=== PATIENT | female | born 1945 | race Caucasian/White ===

== ENCOUNTER 2021-12-16 10:50 | Inpatient (IN) | payer MEDICARE, OTHER, MEDICAID, SELFPAY ==
[2021-12-16] VITALS (12 sets, daily range): BP systolic 140–165; BP diastolic 72–108; PULSE 70–76; RESP 16–19; TEMP 36.4–36.5; O2SAT 92–100; BMI 45.2
--- NOTE | ~2021-12-16 | CT_ITS ---
EXAMINATION: CT abdomen pelvis wo con DATE: 12/16/2021 15:14 INDICATION: Left lower quadrant abdominal pain and burning while urinating, starting last evening TECHNIQUE: Computed tomography (CT) of the abdomen and pelvis was performed without intravenous contr ast. Automated exposure control and iterative reconstruction technique were employed. Exam dose: 152 1.35 mGy-cm total exam DLP. COMPARISON: None. FINDINGS: There is mild patchy infiltrate and/or atelectasis in both lower lobes predominantly. Coronary and aortic calcifications. No pericardial or pleural effusion. There are calcified splenic granulomas. No hepatic, splenic, pancreatic, and adrenal or left renal sp travis-occupying mass lesion. There is an approximately 7.2 cm right renal cyst. No bile duct or pancreatic duct dilatation. No urinary tract calculus or hydroureteronephrosis. The urinary bladder is unremarkable. Status post hysterectomy. There is atherosclerotic calcification of prominent degree at the origins of the celiac and superior mesenteric and right renal arteries. No abdominal aortic aneurysm. No intraperitoneal or retroperiton eal or pelvic mass lesion or adenopathy or ascites. There are numerous diverticula of the left, with minimal involvement of the right colon; no CT eviden ce of diverticulitis. No bowel obstruction, bowel wall thickening, pneumatosis or intraperitoneal narciso e air. Degenerative changes of the thoracic and lumbar spine. No suspicious osteolytic or osteoblastic lesio ns are noted. IMPRESSION: Mild patchy infiltrate and/or atelectasis at both lower lobes predominantly Coronary and aortic atherosclerosis Prominent calcifications at the origins of celiac consider mesenteric and right renal arteries Diverticulosis of the colon; no evidence of diverticulitis Reviewed, dictated and finalized at [facility]. Reviewed, dictated and finalized at location [facility]. IMPRESSION: Mild patchy infiltrate and/or atelectasis at both lower lobes pred ominantly Coronary and aortic atherosclerosis Prominent calcifications at the origins of celiac consider mesenteric and right renal arteries Diverticulosis of the colon; no evidence of diverticulitis
--- NOTE | ~2021-12-16 | US_ITS ---
EXAMINATION: US abdomen limited DATE: 12/17/2021 08:40 INDICATION: Abnormal liver function tests. TECHNIQUE: Multiple grayscale and Doppler ultrasound images of the abdomen were obtained. COMPARISON: CT abdomen and pelvis 12/16/2021 FINDINGS: Sensitivity is decreased by obesity. The visualized portions of the head, body, and tail of the pancreas are normal. The liver is normal without focal lesion. There is normal flow in main port al vein. The gallbladder is absent. The common duct is normal and measures 5 mm. IMPRESSION: 1. Normal right upper quadrant ultrasound status post cholecystectomy. Reviewed, dictated and finalized at location [facility].
--- NOTE | ~2021-12-16 | XR_ITS ---
XR chest 1V portable DATE: 12/16/2021 16:52 INDICATION: Cough TECHNIQUE: Portable AP chest on 12/16/2021 at 1641 hours COMPARISON: 01/30/2016 PA and lateral chest FINDINGS: Borderline or increased heart size. Coronary artery calcification and/or coronary stent. Th ere is mild pulmonary vascular congestion and redistribution, mild prominence of the minor fissure, s uggesting mild congestive heart failure. No pleural effusion or pneumothorax or pulmonary consolidati on is noted. Aortic arch calcification. IMPRESSION: Mild congestive change Reviewed, dictated and finalized at location [facility]. IMPRESSION: Mild congestive change
[2021-12-16 11:31] LABS: Basophils Absolute Auto 0.1 K/mm3 (0.0-0.1); Basophils Percent Auto 0.9 % (0.2-1.2); Eosinophils Absolute Auto 0.2 K/mm3 (0-0.3); Hematocrit 41.3 % (37.0-47.0); Hemoglobin 12.9 g/dL (12.0-15.0); Immature Granulocyte Absolute 0.03 K/mm3 (0.00-0.031); Immature Granulocyte Percent A 0.4 % (0-0.5); Lymphocytes Absolute Auto 1.81 K/mm3 (0.9-3.2); Lymphocytes Percent Auto 25.7 % (18.3-44.2); Mean Corpuscular HGB Conc 31.2 g/dl (32-36); Mean Corpuscular Volume 89.8 fl (80-100); Mean Platelet Volume 11.2 fl (7.4-10.4); Monocytes Absolute Auto 0.8 K/mm3 (0.1-0.6); Monocytes Percent Auto 11.2 % (2.6-8.5); Neutrophils Absolute Auto 4.1 K/mm3 (1.3-6.7); Neutrophils Percent Auto 58.8 % (45.5-73.1); Platelet Count Result 215 k/mm3 (150-375); Red Cell Distribution Width 15.5 % (11.5-14.5)
[2021-12-16 11:41] LABS: Alanine Aminotransferase 47 U/L (6-35); Albumin Level 3.4 g/dL (3.5-5.1); Alkaline Phosphatase 118 U/L (38-126); Anion Gap 7 mmol/L (8-16); Aspartate Amino Transferase 126 U/L (14-36); Bilirubin,Total 0.8 mg/dL (0.2-1.3); Blood Urea Nitrogen 49 mg/dL (7-17); Calcium 9.1 mg/dL (8.4-10.2); Carbon Dioxide 30 mmol/L (22-30); Chloride 98 mmol/L (98-107); Estimated CRCL calculation 29 ml/min; Estimated Glomerular Filt Rate 26; Glucose 207 mg/dL (65-110); Lipase 259 U/L (23-300); Potassium 4.6 mmol/L (3.4-5.0); Sodium 135 mmol/L (137-145)
--- NOTE | 2021-12-16 14:44 | ED.ABDPAIN ---
HPI - Abdominal Pain General Chief Complaint: Abdominal Pain Stated Complaint: abd pain Time Seen by Provider: 12/16/21 14:32 Source: RN notes reviewed History of Present Illness HPI narrative: Patient presents emergency department from [facility] via EMS for abdominal pain. Patient states symptoms began yesterday. States has been having abdominal pain in the lower abdomen described as aching in nature states it does not radiate has been associated with dysuria. Patient denies any fevers or chills chest pain shortness of breath nausea vomiting diarrhea or any other symptoms. States she is not taking pain medication for the symptoms today states she does have a history of diverticulitis as well as UTIs before in the past Related Data Allergies Allergy/AdvReac Type Severity Reaction Status Date / Time adhesive tape Allergy Unknown Verified 01/30/16 17:45 amoxicillin Allergy Unknown Verified 12/27/14 19:10 ciprofloxacin Allergy Unknown Verified 01/30/16 17:45 clavulanic acid Allergy Unknown Verified 01/30/16 17:45 hydromorphone Allergy Unknown Verified 01/30/16 17:45 morphine Allergy Unknown Verified 01/30/16 17:45 Review of Systems Review of Systems: Gen.: Denies fevers or chills ENT: Denies congestion Respiratory: Denies shortness of breath or cough CV: Denies chest pain or palpitations GI: See HPI reports dysuria Musculoskeletal: Denies back pain or muscle pain Neuro: Denies numbness, tingling, weakness or focal weakness Skin: Denies rash Except as documented, all other systems reviewed and negative PMFSH Past Medical History Medical History (Updated 12/16/21 @ 17:10 by Marco King DO) Diverticulitis Social History Social History (Updated 12/16/21 @ 14:45 by Marco King DO) Smoking status: Never smoker Exam Narrative: APPEARANCE: No acute distress, nontoxic, resting in bed HEENT: Normocephalic, atraumatic, OMM RESPIRATORY: No respiratory distress, clear to auscultation bilaterally with no rhonchi wheezing or rales CARDIOVASCULAR: RRR s murmur ABDOMINAL: Soft nondistended tender palpation right lower quadrant left lower quadrant no tenderness right upper quadrant left upper quadrant no rebound or guarding MUSCULOSKELETAl: Moves all extremities. No clubbing, cyanosis or edema. NEURO: Awake and alert. Following commands, speech normal, no focal deficits SKIN:: Warm, dry. Normal Color PSYCHIATRIC: Normal affect/mood Course Course Emergency Course: Discussed with JOSHUA Montaño for Dr Wang presentation work-up agrees with admission request patient started on Rocephin and Zithromax at this time Discussed with patient and family results of workup and diagnosis. Discussed need for admission. Patient and family understand and agree to current treatment plan Vital Signs Vital signs: Vital Signs Temperature 97.7 F 12/16/21 11:34 Pulse Rate 72 12/16/21 11:34 Respiratory Rate 18 12/16/21 11:34 Blood Pressure 150/82 H 12/16/21 11:34 Pulse Oximetry 98 12/16/21 11:34 Oxygen Delivery Room Air 12/16/21 11:34 Temperature 97.7 F 12/16/21 14:02 Pulse Rate 76 12/16/21 16:37 Respiratory Rate 18 12/16/21 16:37 Blood Pressure 165/84 H 12/16/21 16:37 Pulse Oximetry 99 12/16/21 16:37 Oxygen Delivery Room Air 12/16/21 11:34 MDM - Abdominal Pain Lab Data Result diagrams: 12/16/21 11:26 12/16/21 11:26 Labs: Lab Results 12/16/21 12/16/21 12/16/21 Range/Units 11:26 11:26 15:28 WBC 7.0 (4.5-10.0) K/mm3 RBC 4.60 (4.2-5.4) M/mm3 Hgb 12.9 (12.0-15.0) g/dL Hct 41.3 (37.0-47.0) % MCV 89.8 (80-100) fl MCH 28.0 (26-34) pg MCHC 31.2 L (32-36) g/dl RDW 15.5 H (11.5-14.5) % Plt Count 215 (150-375) k/mm3 MPV 11.2 H (7.4-10.4) fl Immature Gran % (Auto) 0.4 (0-0.5) % Neut % (Auto) 58.8 (45.5-73.1) % Lymph % (Auto) 25.7 (18.3-44.2) % [place] % (Auto) 11.2 H (2.6-8.5) % Eos %
--- NOTE | 2021-12-16 15:02 | PC.NURSE ---
pt. to XR
[2021-12-16 15:39] LABS: Appearance Urine Cloudy (Clear); Bilirubin Urine Negative (Negative); Blood Urine 2+ (Negative); Color Urine Yellow (Yellow); Glucose Urine UA Negative (Negative); Ketones Urine Trace mg/dL (Negative); Leukocyte Esterase Ur 2+ LEU/UL (Negative); Nitrate Urine Negative (Negative); Protein Urine 3+ mg/dL (Negative)
[2021-12-16] MEDS: SODIUM CHLORIDE 0.9% IV 1,000 ML 999 ML IV CONT (15:43)
[2021-12-16 15:48] LABS: Bacteria Urine 1+ /hpf; WBC Clumps Urine Present /HPF; WBC Urine >75 /hpf
[2021-12-16 15:51] LABS: Add Urine Microscopic? YES
[2021-12-16 17:16] LABS: SARS-CoV-2 RNA PCR Negative
--- NOTE | 2021-12-16 18:09 | ADMGEN ---
This patient, Marleen Perla, was admitted to Medical Room 251-. Patient/family oriented to hospital policies and general routines including ID bracelet, bed and alarms, visiting hours, pain management, procedures, bathroom and other care routines, personal items, smoking policy, room service/diet, and visiting hours. Information on how to activate the Rapid Response Team has been discussed. Patient/Family are encouraged to report perceived risks to care and to ask questions if they do not understand what they are told or what they should do.
[2021-12-16 18:31] LABS: Glucose Point of Care 191 mg/dl (65-105)
--- NOTE | 2021-12-16 19:15 | PM.IMHP ---
H&P: HPI History of Present Illness Date/Time: 12/16/21 19:15 Chief Complaint: Dysuria and lower abdominal pain. Narrative: This is a 76-year-old female with history of stroke, coronary artery disease, congestive heart failure, hypertension, hyperlipidemia, chronic obstructive pulmonary disease, chronic kidney disease, and anxiety who presented to the emergency department via EMS from a local group home for evaluation of dysuria and lower abdominal pain. She describes an aching discomfort in the lower abdomen, more so on the left, associated with dysuria. These symptoms have been present for a couple of days and she wanted to come in to be evaluated for possible urinary tract infection or diverticulitis, she does have a history of both. she has not had fever, chills, sweats, nausea, or vomiting. she also denies diarrhea and in fact she is typically constipated. CT of the abdomen and pelvis showed no acute intra abdominal or pelvic findings to correlate with her symptoms but did note mild patchy infiltrate and/or atelectasis at both lower lobes. She denies however cough, shortness of breath, cold and flu symptoms, etc.. Her urinalysis does look infected and she is being admitted in this setting for IV antibiotics as she did not feel as though she could be discharged. Review of Systems Review of Systems: Twelve systems were reviewed. She is essentially wheelchair-bound but can not stand and pivot to transfer. No cold or flu symptoms. She denies sick contacts. She has not had chest pain, pleuritic pain, or shortness of breath. No melena or hematochezia. She denies hematuria. No abdominal pain with eating. Except as documented, all other systems were reviewed and are negative. [facility] Past Medical History Medical History (Updated 12/17/21 @ 01:44 by Sabra Felton PA-C) Cerebrovascular accident Chronic anticoagulation Chronic kidney disease Chronic obstructive pulmonary disease Coronary artery disease Diverticulitis Hyperlipidemia Hypertension Hypothyroidism Paroxysmal atrial fibrillation Type 2 diabetes mellitus Urinary tract infection Surgical History Surgical History (Updated 12/16/21 @ 19:03 by Sabra Felton PA-C) History of ankle surgery ORIF left ankle fracture. History of appendectomy History of cholecystectomy History of colonoscopy with polypectomy History of coronary artery stent placement History of thyroidectomy Family History Family History Other Unknown family medical history Social History Social History (Updated 12/17/21 @ 01:35 by Sabra Felton PA-C) Social History: Surrogate medical decision maker: Michael Perla, son. Code status: Full code. Smoking status: Never smoker Alcohol intake: never Substance use: never Substance use type: does not use Additional living arrangements comments: Resident of [facility]. Spiritual care concerns: No Meds Home Medications and Allergies Home Medications Medication Instructions Recorded Confirmed Type pregabalin 150 mg capsule (Lyrica) 150 mg PO BID #60 caps 07/12/21 12/16/21 Rx zolpidem 5 mg tablet (Ambien) 5 mg PO QHS PRN insomnia #90 tabs 07/12/21 12/16/21 Rx Adult One Daily Multivitamin 1 tablet PO DAILY 12/16/21 12/16/21 History Saccharomyces boulardii 250 mg 250 mg PO BID 12/16/21 12/16/21 History oral powder packet acetaminophen 500 mg tablet 1,000 mg PO Q6H PRN Pain (Scale 12/16/21 12/16/21 History Score 1-3) albuterol sulfate 90 mcg/actuation 2 puff inhalation QID PRN 12/16/21 12/16/21 History aerosol inhaler Shortness Of Breath Or Wheezing amiodarone 200 mg tablet 200 mg PO DAILY 12/16/21 12/16/21 History aspirin 81 mg tablet,delayed 81 mg PO DAILY 12/16/21 12/16/21 History release cetirizine 10 mg tablet 10 mg PO DAILY 12/16/21 12/16/21 History fenofibrate 160 mg tablet 145 mg PO DAILY 12/16/21 12/16/21 History folic acid 1
[2021-12-16] MEDS: SODIUM CHLORIDE 0.9% IV 1,000 ML 100 ML IV CONT (20:07)
[2021-12-16 21:19] LABS: Glucose Point of Care 247 mg/dl (65-105)
[2021-12-16] MEDS: PHENAZOPYRIDINE HCL 100 MG TABLET 200 MG PO (21:36)
[2021-12-17] MEDS: LORazepam (*CRX) 0.5 MG TABLET PO ×2 (00:19→21:39)
[2021-12-17] MEDS: ACETAMINOPHEN 325 MG TABLET 650 MG PO ×3 (00:19→12:12)
[2021-12-17] MEDS: RIVAROXABAN 15 MG TABLET PO ×2 (00:19→17:47)
[2021-12-17] MEDS: INSULIN GLARGINE (*BKC) 100 UNITS/ML 20 UNITS SUB-Q ×3 (00:23→21:18)
[2021-12-17] MEDS: LEVOTHYROXINE SODIUM 75 MCG TABLET PO (05:40)
[2021-12-17] MEDS: LEVOTHYROXINE SODIUM 100 MCG TABLET PO (05:40)
[2021-12-17] MEDS: LIOTHYRONINE SODIUM 5 MCG TABLET PO (05:41)
[2021-12-17] MEDS: PHENAZOPYRIDINE HCL 100 MG TABLET 200 MG PO ×3 (05:41→17:46)
[2021-12-17 05:44] LABS: Basophils Percent Auto 0.7 % (0.2-1.2); Eosinophils Absolute Auto 0.3 K/mm3 (0-0.3); Eosinophils Percent Auto 4.7 % (0-4.4); Hematocrit 37.3 % (37.0-47.0); Hemoglobin 11.5 g/dL (12.0-15.0); Immature Granulocyte Absolute 0.02 K/mm3 (0.00-0.031); Immature Granulocyte Percent A 0.4 % (0-0.5); Lymphocytes Absolute Auto 1.26 K/mm3 (0.9-3.2); Lymphocytes Percent Auto 22.5 % (18.3-44.2); Mean Corpuscular HGB Conc 30.8 g/dl (32-36); Mean Corpuscular Hemoglobin 27.8 pg (26-34); Mean Corpuscular Volume 90.1 fl (80-100); Mean Platelet Volume 12.1 fl (7.4-10.4); Monocytes Absolute Auto 0.7 K/mm3 (0.1-0.6); Monocytes Percent Auto 12.3 % (2.6-8.5); Neutrophils Absolute Auto 3.3 K/mm3 (1.3-6.7); Neutrophils Percent Auto 59.4 % (45.5-73.1); Platelet Count Result 195 k/mm3 (150-375); Red Blood Count 4.14 M/mm3 (4.2-5.4); Red Cell Distribution Width 15.6 % (11.5-14.5); White Blood Count 5.6 K/mm3 (4.5-10.0)
[2021-12-17 06:00] VITALS: BP 145/64; PULSE 68; RESP 16; TEMP 36.5; O2SAT 100
[2021-12-17 06:03] LABS: Alanine Aminotransferase 38 U/L (6-35); Alkaline Phosphatase 89 U/L (38-126); Anion Gap 9 mmol/L (8-16); Aspartate Amino Transferase 101 U/L (14-36); Bilirubin,Total 0.6 mg/dL (0.2-1.3); Blood Urea Nitrogen 43 mg/dL (7-17); Calcium 8.6 mg/dL (8.4-10.2); Carbon Dioxide 27 mmol/L (22-30); Chloride 99 mmol/L (98-107); Estimated CRCL calculation 34 ml/min; Estimated Glomerular Filt Rate 32; Glucose 212 mg/dL (65-110); Magnesium 2.2 mg/dL (1.6-2.3); Potassium 3.8 mmol/L (3.4-5.0); Sodium 135 mmol/L (137-145)
[2021-12-17 06:13] LABS: Hemoglobin A1C 9.1 % (<5.7)
[2021-12-17 07:09] LABS: Hepatitis B Surface Antigen Negative (Negative)
[2021-12-17 07:15] LABS: HAV RESULT Negative (Negative); Hepatitis B Core IgM Result Negative (Negative)
[2021-12-17 07:27] LABS: Hepatitis C Virus Antibody Negative (Negative)
[2021-12-17 08:50] LABS: Glucose Point of Care 229 mg/dl (65-105)
[2021-12-17] MEDS: polyethylene glycoL 3350 17 GM POWD.PACK PO (08:59)
[2021-12-17] MEDS: POTASSIUM CHLORIDE 20 MEQ PACKET (FOR LIQUID) PO (09:00)
[2021-12-17] MEDS: SACCHAROMYCES BOULARDII 250 MG CAPSULE PO ×2 (09:00→17:47)
[2021-12-17] MEDS: ASPIRIN 81 MG ENTERIC TABLET PO (09:00)
[2021-12-17] MEDS: ROSUVASTATIN 10 MG TABLET 40 MG PO (09:03)
[2021-12-17] MEDS: PANTOPRAZOLE 40 MG TABLET PO (09:03)
[2021-12-17] MEDS: LORATADINE 10 MG TABLET PO (09:03)
[2021-12-17] MEDS: THERAPEUTIC MULTIVITAMINS/MINERALS TAB (*BKC) 1 TABLET PO (09:03)
[2021-12-17] MEDS: FOLIC ACID 1 MG TABLET PO (09:03)
[2021-12-17] MEDS: SPIRONOLACTONE 25 MG TABLET PO (09:03)
[2021-12-17] MEDS: FUROSEMIDE 80 MG TABLET PO (09:03)
[2021-12-17] MEDS: INSULIN ASPART (*BKC) 100 UNITS/ML 14 UNITS SUB-Q ×2 (09:04→12:34)
[2021-12-17] MEDS: INSULIN ASPART (*BKC) 100 UNITS/ML SUB-Q ×2 (09:05→12:34)
[2021-12-17 09:06] VITALS: PULSE 64
[2021-12-17] MEDS: AMIODARONE HCL 200 MG TABLET PO (09:06)
[2021-12-17] MEDS: FENOFIBRATE NANOCRYSTALLIZED 145 MG TABLET PO (09:07)
--- NOTE | 2021-12-17 09:45 | PM.IMPN ---
Progress Note: A&P Assessment and Plan (1) Urinary tract infection: Code(s): N39.0 - Urinary tract infection, site not specified Status: Acute Assessment and Plan: Patient presents with dysuria and lower abdominal pain, found to have evidence of UTI on UA. WBC normal and remains normal. No fevers. She was started on ceftriaxone. UCx pending. (2) Elevated LFTs: Code(s): R79.89 - Other specified abnormal findings of blood chemistry Status: Acute Assessment and Plan: Abdominal exam remains benign. Abdominal pain better. Now with rectal pain. No acute findings on CT of the abdomen and pelvis. RUQ US normal. LFTs mildly elevated but better today. Hepatitis panel negative. Follow. Add Tucks pads and Anusol. (3) Chronic kidney disease: Code(s): N18.9 - Chronic kidney disease, unspecified Status: Acute Assessment and Plan: She has known chronic kidney disease and has seen a kidney specialist in the past. She does not know the stage of her kidney disease or her baseline numbers. Cr 1.9 on admission but better today at 1.6. Off IV fluids. (4) Type 2 diabetes mellitus: Code(s): E11.9 - Type 2 diabetes mellitus without complications Status: Acute Assessment and Plan: A1c 9.1. The patient's blood glucose was reviewed on 12/17 Glucose remains poorly controlled. Continue AccuCheks covering with sliding scale. Hypoglycemia protocol available as needed. Continue current medications and monitor for now; this may improve with her adhering to diabetic diet. Continue diabetic diet. If glucose persistently elevated next 24 hours, then will advance medications. (5) Paroxysmal atrial fibrillation: Code(s): I48.0 - Paroxysmal atrial fibrillation Status: Acute Assessment and Plan: She is in a sinus rhythm. Continue rivaroxaban for stroke prophylaxis. (6) Abnormal chest sounds: Code(s): R09.89 - Other specified symptoms and signs involving the circulatory and respiratory systems Status: Acute Assessment and Plan: She had fine crackles at the bases. CXR showing mild congestive changes. CT A/P showing mild patchy infiltrates and/or atelectasis in bilateral lower lobes; suspect atelectasis. She is able to lie flat. IV fluids stopped. Diuretics resumed. Plan DVT prophylaxis: Xarelto Code status: Full Diet: Diabetic Subjective Date/time seen: 12/17/21 09:45 Interval history: 76yo female with pAFib, DM and CKD here for abdominal pain. Patient states she is having severe dysuria and rectal burning after BMs. Slept poorly. No CP or SOB. She has a rash under her breasts and in her groin that is being treated. She states it is very puritic Exam Narrative: AF 97.7 145/64 64 16 100% Gen - NARD lying flat in bed Chest - CTA bilaterally, nml RR CV - RRR S1/S2 Abd - Soft, NT/ND, Positive BS Ext - trace pitting pedal edema Psych - anxious Skin - Warm and dry. no significnat erythema under her breasts or intertriginous area. Objective Data Vital Signs Vital Signs: Vital Signs - 24 hr 12/16/21 11:34 12/16/21 14:02 12/16/21 14:39 Temperature 97.7 F 97.7 F Pulse Rate 72 73 Respiratory Rate 18 19 Blood Pressure 150/82 H 146/72 H Pulse Oximetry 98 100 100 Oxygen Delivery Room Air 12/16/21 14:42 12/16/21 14:45 12/16/21 14:46 Temperature Pulse Rate Respiratory Rate Blood Pressure 158/88 H 140/108 H Pulse Oximetry 97 96 97 Oxygen Delivery 12/16/21 15:14 12/16/21 15:15 12/16/21 15:30 Temperature Pulse Rate Respiratory Rate Blood Pressure Pulse Oximetry 98 99 97 Oxygen Delivery 12/16/21 15:46 12/16/21 16:37 12/16/21 21:21 Temperature 97.5 F L Pulse Rate 76 70 Respiratory Rate 18 16 Blood Pressure 165/84 H 150/73 H Pulse Oximetry 92 99 95 Oxygen Delivery 12/17/21 06:00 12/17/21 09:06 Temperature 97.7 F Pulse Rate 68 64 Respira
[2021-12-17] MEDS: PREGABALIN (*CRX) 75 MG CAPSULE 150 MG PO ×2 (10:26→21:39)
[2021-12-17 12:22] LABS: Glucose Point of Care 238 mg/dl (65-105)
[2021-12-17 14:18] VITALS: BP 150/75; PULSE 63; RESP 16; TEMP 36.1; O2SAT 99
[2021-12-17 17:22] LABS: Glucose Point of Care 138 mg/dl (65-105)
[2021-12-17] MEDS: INSULIN ASPART (*BKC) 100 UNITS/ML 7 UNITS SUB-Q (18:01)
[2021-12-17 21:18] LABS: Glucose Point of Care 218 mg/dl (65-105)
[2021-12-17 22:00] VITALS: BP 146/87; PULSE 76; RESP 18; TEMP 36.7; O2SAT 96
[2021-12-18] MEDS: ACETAMINOPHEN 325 MG TABLET 650 MG PO ×2 (02:45→08:41)
[2021-12-18 05:47] LABS: Alanine Aminotransferase 35 U/L (6-35); Alkaline Phosphatase 95 U/L (38-126); Anion Gap 9 mmol/L (8-16); Aspartate Amino Transferase 74 U/L (14-36); Bilirubin,Total 0.6 mg/dL (0.2-1.3); Blood Urea Nitrogen 40 mg/dL (7-17); Calcium 8.8 mg/dL (8.4-10.2); Carbon Dioxide 30 mmol/L (22-30); Chloride 97 mmol/L (98-107); Estimated CRCL calculation 33 ml/min; Estimated Glomerular Filt Rate 29; Glucose 181 mg/dL (65-110); Potassium 4.1 mmol/L (3.4-5.0); Sodium 136 mmol/L (137-145)
[2021-12-18] MEDS: LINACLOTIDE 145 MCG CAPSULE PO (07:25)
[2021-12-18] MEDS: LEVOTHYROXINE SODIUM 75 MCG TABLET PO (07:25)
[2021-12-18] MEDS: LIOTHYRONINE SODIUM 5 MCG TABLET PO (07:25)
[2021-12-18] MEDS: LEVOTHYROXINE SODIUM 100 MCG TABLET PO (07:26)
[2021-12-18 07:52] VITALS: BP 141/67; PULSE 71; RESP 20; TEMP 36.1; O2SAT 98
[2021-12-18 08:48] VITALS: PULSE 67
[2021-12-18 08:48] LABS: Glucose Point of Care 191 mg/dl (65-105)
[2021-12-18] MEDS: ROSUVASTATIN 10 MG TABLET 40 MG PO (08:48)
[2021-12-18] MEDS: AMIODARONE HCL 200 MG TABLET PO (08:48)
[2021-12-18] MEDS: POTASSIUM CHLORIDE 20 MEQ PACKET (FOR LIQUID) PO (08:48)
[2021-12-18] MEDS: LORATADINE 10 MG TABLET PO (08:49)
[2021-12-18] MEDS: PHENAZOPYRIDINE HCL 100 MG TABLET 200 MG PO ×3 (08:49→17:31)
[2021-12-18] MEDS: SPIRONOLACTONE 25 MG TABLET PO (08:49)
[2021-12-18] MEDS: ASPIRIN 81 MG ENTERIC TABLET PO (08:50)
[2021-12-18] MEDS: INSULIN GLARGINE (*BKC) 100 UNITS/ML 20 UNITS SUB-Q ×2 (08:50→20:44)
[2021-12-18] MEDS: FOLIC ACID 1 MG TABLET PO (08:50)
[2021-12-18] MEDS: FENOFIBRATE NANOCRYSTALLIZED 145 MG TABLET PO (08:50)
[2021-12-18] MEDS: THERAPEUTIC MULTIVITAMINS/MINERALS TAB (*BKC) 1 TABLET PO (08:50)
[2021-12-18] MEDS: INSULIN ASPART (*BKC) 100 UNITS/ML 14 UNITS SUB-Q ×3 (08:50→17:30)
[2021-12-18] MEDS: PANTOPRAZOLE 40 MG TABLET PO (08:50)
[2021-12-18] MEDS: SACCHAROMYCES BOULARDII 250 MG CAPSULE PO ×2 (08:50→17:31)
[2021-12-18] MEDS: FUROSEMIDE 80 MG TABLET PO (08:50)
[2021-12-18] MEDS: PREGABALIN (*CRX) 75 MG CAPSULE 150 MG PO ×2 (08:53→20:44)
--- NOTE | 2021-12-18 11:09 | PCPTNOTE ---
Attempted PT evaluation this date. Pt declined stating that she has been getting up a lot this morning to the commode due to multiple bowel movements. Will attempt again at a later date/time.
[2021-12-18 11:58] LABS: Toxigenic C. Diff NEGATIVE (NEGATIVE)
[2021-12-18 11:59] LABS: Glucose Point of Care 258 mg/dl (65-105)
[2021-12-18] MEDS: INSULIN ASPART (*BKC) 100 UNITS/ML SUB-Q (12:16)
--- NOTE | 2021-12-18 12:34 | PM.IMPN ---
Progress Note: A&P Assessment and Plan (1) Urinary tract infection: Code(s): N39.0 - Urinary tract infection, site not specified Status: Acute Assessment and Plan: Oral Omnicef (2) Elevated LFTs: Code(s): R79.89 - Other specified abnormal findings of blood chemistry Status: Acute Assessment and Plan: LFTs elevated, chronic. No right upper quadrant pain. Workup revealing (3) Chronic kidney disease: Code(s): N18.9 - Chronic kidney disease, unspecified Status: Acute Assessment and Plan: Monitor (4) Type 2 diabetes mellitus: Code(s): E11.9 - Type 2 diabetes mellitus without complications Status: Acute Assessment and Plan: Monitor blood sugars (5) Paroxysmal atrial fibrillation: Code(s): I48.0 - Paroxysmal atrial fibrillation Status: Acute (6) Abnormal chest sounds: Code(s): R09.89 - Other specified symptoms and signs involving the circulatory and respiratory systems Status: Acute Assessment and Plan: Possible pneumonia. Continue azithromycin Subjective Date/time seen: 12/18/21 12:34 Complaining of some lower abdominal cramping. Tylenol not helping Exam Narrative: General: alert and oriented Psych: appropriate mood nad affect Eyes: PERRLA Neck: Trachea midline, no new lesions Skin: no changes Lungs: CTA Cardiac: Normal S1,S2, no MGR ABD: soft, nd, nt, nbs Ext: no new lesions, no cce Vasc: Pulses intact Objective Data Vital Signs Vital Signs: Vital Signs - 24 hr 12/17/21 14:18 12/17/21 20:00 12/17/21 22:00 Temperature 97 F L 98.1 F Pulse Rate 63 76 Respiratory Rate 16 18 Blood Pressure 150/75 H 146/87 H Pulse Oximetry 99 96 Oxygen Delivery Room Air 12/18/21 07:52 12/18/21 08:48 12/18/21 08:00 Temperature 97 F L Pulse Rate 71 67 Respiratory Rate 20 Blood Pressure 141/67 H Pulse Oximetry 98 Oxygen Delivery Room Air Intake/Output Intake/Output: Intake & Output 12/15/21 12/16/21 12/17/21 12/18/21 23:59 23:59 23:59 23:59 Intake Total 1400 1500 540 Output Total 200 3750 700 Balance 1200 -2250 -160 Meds/Results Medications: Active Medications Generic Name Dose Route Start Last Admin Trade Name Freq PRN Reason Stop Dose Admin Acetaminophen 650 mg 12/16/21 23:46 12/18/21 08:41 Acetaminophen 325 Mg Tablet PO 650 mg Q6H PRN Administration Pain (Scale Score 1-3) Albuterol 2 puff 12/16/21 23:46 Albuterol Sulfate (*Sp) Aerosol 1 Puff INHALATION QID PRN Shortness Of Breath Or Wheezing Amiodarone HCl 200 mg 12/17/21 08:00 12/18/21 08:48 Amiodarone Hcl 200 Mg Tablet PO 200 mg DAILY@0800 SIVA Administration Aspirin 81 mg 12/17/21 09:00 12/18/21 08:50 Aspirin 81 Mg Enteric Tablet PO 81 mg DAILY SIVA Administration Azithromycin 500 mg 12/18/21 21:00 Azithromycin 250 Mg Tablet PO 12/20/21 21:01 DAILY@2100 [facility] Cefdinir 300 mg 12/18/21 21:00 Cefdinir 300 Mg Capsule PO 12/23/21 09:01 Q12HR [facility] Dextrose 12.5 gm 12/16/21 23:48 Dextrose 50% 25 Gm/50 Ml Syringe IV PUSH PRN PRN Hypoglycemia Protocol Fenofibrate 145 mg 12/17/21 09:00 12/18/21 08:50 Fenofibrate Nanocrystallized 145 Mg Tablet PO 145 mg QAM SIVA Administration Folic Acid 1 mg 12/17/21 09:00 12/18/21 08:50 Folic Acid 1 Mg Tablet PO 1 mg DAILY SIVA Administration Furosemide 80 mg 12/17/21 09:00 12/18/21 08:50 Furosemide 80 Mg Tablet PO 80 mg DAILY SIVA Administration Glucagon 1 mg 12/16/21 23:48 Glucagon For Inj 1 Mg Vial IM PRN PRN Hypoglycemia Protocol Glucose 15 gm 12/16/21 23:48 Glucose Oral Gel 15 Gm Of Glucse In 37.5 Gm Tube PO PRN PRN Hypoglycemia Protocol Hydrocortisone Acetate 25 mg 12/17/21 09:45 12/18/21 08:50 Hydrocortisone Acetate 25 Mg Suppository RECTAL Not Given Q12HR [facility] Dextrose 1,000 mls @ 10
[2021-12-18 14:00] VITALS: BP 139/68; PULSE 81; RESP 16; TEMP 36.1; O2SAT 99
[2021-12-18] MEDS: HYDROcodone/acetaminophen (*CRX) 5-325 MG TABLET 1 TAB PO ×2 (15:52→21:57)
[2021-12-18 17:02] LABS: Glucose Point of Care 199 mg/dl (65-105)
[2021-12-18] MEDS: CEFDINIR 300 MG CAPSULE PO (20:43)
[2021-12-18] MEDS: RIVAROXABAN 15 MG TABLET PO (20:43)
[2021-12-18] MEDS: AZITHROMYCIN 250 MG TABLET 500 MG PO (20:43)
[2021-12-18 21:23] VITALS: BP 149/52; PULSE 71; RESP 18; TEMP 36.7; O2SAT 97
[2021-12-18] MEDS: LORazepam (*CRX) 0.5 MG TABLET PO (21:57)
[2021-12-18 21:59] LABS: Glucose Point of Care 185 mg/dl (65-105)
[2021-12-19] MEDS: HYDROcodone/acetaminophen (*CRX) 5-325 MG TABLET 1 TAB PO ×2 (03:00→08:55)
[2021-12-19 05:29] VITALS: BP 115/43; PULSE 68; RESP 18; TEMP 36.9; O2SAT 95
[2021-12-19] MEDS: LIOTHYRONINE SODIUM 5 MCG TABLET PO (05:42)
[2021-12-19] MEDS: LEVOTHYROXINE SODIUM 75 MCG TABLET PO (05:42)
[2021-12-19] MEDS: LINACLOTIDE 145 MCG CAPSULE PO (05:42)
[2021-12-19] MEDS: LEVOTHYROXINE SODIUM 100 MCG TABLET PO (05:42)
[2021-12-19] MEDS: THERAPEUTIC MULTIVITAMINS/MINERALS TAB (*BKC) 1 TABLET PO (08:47)
[2021-12-19] MEDS: PANTOPRAZOLE 40 MG TABLET PO (08:47)
[2021-12-19] MEDS: ROSUVASTATIN 10 MG TABLET 40 MG PO (08:47)
[2021-12-19] MEDS: FOLIC ACID 1 MG TABLET PO (08:47)
[2021-12-19] MEDS: ASPIRIN 81 MG ENTERIC TABLET PO (08:47)
[2021-12-19] MEDS: PREGABALIN (*CRX) 75 MG CAPSULE 150 MG PO (08:47)
[2021-12-19] MEDS: FENOFIBRATE NANOCRYSTALLIZED 145 MG TABLET PO (08:48)
[2021-12-19] MEDS: CEFDINIR 300 MG CAPSULE PO (08:48)
[2021-12-19] MEDS: SACCHAROMYCES BOULARDII 250 MG CAPSULE PO (08:48)
[2021-12-19] MEDS: FUROSEMIDE 80 MG TABLET PO (08:48)
[2021-12-19] MEDS: LORATADINE 10 MG TABLET PO (08:48)
[2021-12-19] MEDS: POTASSIUM CHLORIDE 20 MEQ PACKET (FOR LIQUID) PO (08:48)
[2021-12-19] MEDS: SPIRONOLACTONE 25 MG TABLET PO (08:48)
[2021-12-19 08:49] VITALS: PULSE 62
[2021-12-19] MEDS: AMIODARONE HCL 200 MG TABLET PO (08:49)
[2021-12-19 09:01] LABS: Anion Gap 9 mmol/L (8-16); Blood Urea Nitrogen 49 mg/dL (7-17); Calcium 9.1 mg/dL (8.4-10.2); Carbon Dioxide 27 mmol/L (22-30); Chloride 100 mmol/L (98-107); Estimated CRCL calculation 28 ml/min; Estimated Glomerular Filt Rate 24; Glucose 173 mg/dL (65-110); Potassium 4.4 mmol/L (3.4-5.0); Sodium 136 mmol/L (137-145)
[2021-12-19 09:19] LABS: Glucose Point of Care 166 mg/dl (65-105)
[2021-12-19] MEDS: INSULIN ASPART (*BKC) 100 UNITS/ML 14 UNITS SUB-Q ×2 (09:38→12:34)
[2021-12-19] MEDS: INSULIN GLARGINE (*BKC) 100 UNITS/ML 20 UNITS SUB-Q (09:38)
--- NOTE | 2021-12-19 11:10 | PM.DS ---
DS: Admitting Diagnosis Discharge Date December 19, 2021 Admitting Diagnosis UTI abdominal pain DS: Discharge Diagnosis Discharge Diagnosis (1) Urinary tract infection: Code(s): N39.0 - Urinary tract infection, site not specified Status: Acute Assessment and Plan: Oral Omnicef (2) Elevated LFTs: Code(s): R79.89 - Other specified abnormal findings of blood chemistry Status: Acute Assessment and Plan: LFTs elevated, chronic. No right upper quadrant pain. Workup unrevealing (3) Chronic kidney disease: Code(s): N18.9 - Chronic kidney disease, unspecified Status: Acute Assessment and Plan: Monitor (4) Type 2 diabetes mellitus: Code(s): E11.9 - Type 2 diabetes mellitus without complications Status: Acute Assessment and Plan: Monitor blood sugars (5) Paroxysmal atrial fibrillation: Code(s): I48.0 - Paroxysmal atrial fibrillation Status: Acute (6) Abnormal chest sounds: Code(s): R09.89 - Other specified symptoms and signs involving the circulatory and respiratory systems Status: Acute Assessment and Plan: Possible pneumonia. Continue azithromycin DS: Summary Hospital Course Hospital Course: patient was admitted for lower abdominal pain found have urinary tract infection. Possibility of pneumonia as well so she was put on Rocephin and azithromycin. No chest pain no shortness of breath. Patient has lower abdominal pain did improve but she still having some lower abdominal cramping but it is improving every day. Patient did have some benefit Moca so a few Moca tabs will be given her on discharge. Otherwise she can be discharged back to facility to continue oral antibiotics. Time Spent with Patient Time attestation: Total time spent providing and/or coordinating discharge services: Exam Narrative: General: alert and oriented Psych: appropriate mood nad affect Eyes: PERRLA Neck: Trachea midline, no new lesions Skin: no changes Lungs: CTA Cardiac: Normal S1,S2, no MGR ABD: soft, nd, nt, nbs Ext: no new lesions, no cce Vasc: Pulses intact DS: Data Data Completed and Pending Labs on day of discharge: Labs from last 24 hours 12/19/21 12/19/21 12/18/21 09:10 08:33 21:54 Sodium 136 L Potassium 4.4 Chloride 100 Carbon Dioxide 27 Anion Gap 9 BUN 49 H Creatinine 2.00 H Estim Creat Clear Calc 28 Estimated GFR 24 L Glucose 173 H POC Capillary Glucose 166 H 185 H Calcium 9.1 C. difficile (PCR) 12/18/21 12/18/21 12/18/21 16:44 11:49 11:05 Sodium Potassium Chloride Carbon Dioxide Anion Gap BUN Creatinine Estim Creat Clear Calc Estimated GFR Glucose POC Capillary Glucose 199 H 258 H Calcium C. difficile (PCR) Negative Discharge Plan Discharge Attending physician on discharge: Abilio Lopez Discharging Clinician: Abilio Lopez Patient Disposition: Home, Self-Care Activity: no preference Diet: as tolerated Patient Instructions: Antibiotic Form, Rivaroxaban (By mouth) Stand Alone Forms: General Discharge Information Follow-up/Referrals: Marco Rose MD [Primary Care Provider] - Discharge Medications: New azithromycin [Zithromax] 250 mg Tablet 500 mg PO DAILY@2100 3 Days Qty: 3 0RF hydrocodone-acetaminophen 5-325 mg Tablet 1 tablet PO Q6H PRN (Reason: Pain Rated 7-10) 5 Days Qty: 20 0RF cefdinir 300 mg Capsule 300 mg PO Q12HR 5 Days Qty: 10 0RF Continued Adult One Daily Multivitamin 1 tablet PO DAILY levothyroxine 175 mcg Tablet 175 mcg PO DAILY insulin glargine [Lantus U-100 Insulin] 100 unit/mL Solution 20 unit SUBCUT BID spironolactone 25 mg Tablet 25 mg PO DAILY potassium chloride 20 mEq Packet 20 meq PO DAILY lorazepam 0.5 mg Tablet 0.5 mg PO Q8H PRN (Reason: Anxiety) furosemide 80 mg
[2021-12-19 12:23] LABS: Glucose Point of Care 267 mg/dl (65-105)
[2021-12-19] MEDS: INSULIN ASPART (*BKC) 100 UNITS/ML SUB-Q (12:34)
[2021-12-19 14:43] LABS: EDCOVIDSCREEN Negative (Negative)
== END 2021-12-19 15:33 | DRG 689 ==
LOC: ANHED 17:10 → ANH2MED 17:29
PROVIDERS: Emergency Medicine; Physician Assistant; Admitting Provider Internal Medicine; Emergency Provider Emergency Medicine; PCP Family Medicine; Visit Provider Chiropractor
DX: N39.0 Urinary tract infection, site not specified (principal); J18.9 Pneumonia, unspecified organism; I13.0 Hypertensive heart and chronic kidney disease with heart failure and stage 1 through stage 4 chronic kidney disease, or unspecified chronic kidney disease; J44.0 Chronic obstructive pulmonary disease with (acute) lower respiratory infection; R79.89 Other specified abnormal findings of blood chemistry; E11.22 Type 2 diabetes mellitus with diabetic chronic kidney disease; N18.9 Chronic kidney disease, unspecified; I50.9 Heart failure, unspecified; I48.0 Paroxysmal atrial fibrillation; I25.10 Atherosclerotic heart disease of native coronary artery without angina pectoris; E78.5 Hyperlipidemia, unspecified; E89.0 Postprocedural hypothyroidism; F41.9 Anxiety disorder, unspecified; Z20.822 Contact with and (suspected) exposure to COVID-19; Z79.01 Long term (current) use of anticoagulants; Z79.4 Long term (current) use of insulin; Z79.82 Long term (current) use of aspirin; Z86.73 Personal history of transient ischemic attack (TIA), and cerebral infarction without residual deficits; Z95.5 Presence of coronary angioplasty implant and graft; Z99.3 Dependence on wheelchair
CPT/HCPCS: 36415; 51701; 71045; 74176; 76705; 80048; 80053; 80074; 81001; 82948; 83036; 83690; 83735; 84443; 85025; 87077; 87086; 87186; 87426; 87493; 96361; 96365; 96366; 96375; 97161; 97165; 99285; A9270; C9803; G0378; J0131; J0456; J0696; J1815; J7030; U0003; U0005

== ENCOUNTER 2022-02-10 09:08 | Emergency (ER) | payer MEDICARE, OTHER, MEDICAID, SELFPAY ==
[2022-02-10 09:07] VITALS: BP 153/77; PULSE 79; RESP 18; TEMP 36.6; O2SAT 99
--- NOTE | 2022-02-10 09:17 | ED.EPISTAXIS ---
HPI - Epistaxis General Chief complaint: Epistaxis <Sharri Benito PA-C - Last Filed: 02/10/22 12:10> Stated complaint: bloody nose since 0600 <Sharri Benito PA-C - Last Filed: 02/10/22 12:10> Time Seen by Provider: 02/10/22 09:10 <Sharri Benito PA-C - Last Filed: 02/10/22 12:10> History of Present Illness HPI Narrative: Patient is a 76-year-old female with a history of A. fib on Xarelto here via EMS for evaluation of recurrent epistaxis. Patient states over the past 2 weeks, she has had daily episodes of epistaxis lasting about 30 minutes to an hour. These have resolved without intervention, however patient developed nosebleed today that has lasted 3 hours. Patient states that she seen ENT in [facility] in the past for frequent epistaxis and has had cauterization in the past. She has been compliant with her Xarelto. Denies any trauma to the face or nose, obvious etiology of nosebleeds. They have been attempting humidifiers in the room without significant relief. <Sharri Benito PA-C - Last Filed: 02/10/22 12:10> Related Data Home medications: Home Medications Medication Instructions Recorded Confirmed Adult One Daily Multivitamin 1 tablet PO DAILY 12/16/21 12/16/21 Saccharomyces boulardii 250 mg 250 mg PO BID 12/16/21 12/16/21 oral powder packet acetaminophen 500 mg tablet 1,000 mg PO Q6H PRN Pain (Scale 12/16/21 12/16/21 Score 1-3) albuterol sulfate 90 mcg/actuation 2 puff inhalation QID PRN 12/16/21 12/16/21 aerosol inhaler Shortness Of Breath Or Wheezing amiodarone 200 mg tablet 200 mg PO DAILY 12/16/21 12/16/21 aspirin 81 mg tablet,delayed 81 mg PO DAILY 12/16/21 12/16/21 release cetirizine 10 mg tablet 10 mg PO DAILY 12/16/21 12/16/21 fenofibrate 160 mg tablet 145 mg PO DAILY 12/16/21 12/16/21 folic acid 1 mg tablet 1 mg PO DAILY 12/16/21 12/16/21 furosemide 80 mg tablet 80 mg PO DAILY 12/16/21 12/16/21 insulin glargine 100 unit/mL 20 unit subcut BID 12/16/21 12/16/21 subcutaneous solution (Lantus U-100 Insulin) insulin lispro 100 unit/mL 14 unit subcut TIDWM 12/16/21 12/16/21 subcutaneous cartridge (Humalog U-100 Insulin) levothyroxine 175 mcg tablet 175 mcg PO DAILY 12/16/21 12/16/21 linaclotide 145 mcg capsule 145 mcg PO QAM 12/16/21 12/16/21 (Linzess) liothyronine 5 mcg tablet (Cytomel) 5 mcg PO DAILY 12/16/21 12/16/21 lorazepam 0.5 mg tablet 0.5 mg PO Q8H PRN Anxiety 12/16/21 12/16/21 pantoprazole 40 mg tablet,delayed 40 mg PO DAILY 12/16/21 12/16/21 release (Protonix) polyethylene glycol 3350 17 gram 17 g PO DAILY 12/16/21 12/16/21 oral powder packet (Miralax) potassium chloride 20 mEq oral 20 meq PO DAILY 12/16/21 12/16/21 packet rivaroxaban 15 mg tablet (Xarelto) 15 mg PO HS 12/16/21 12/16/21 rosuvastatin 40 mg tablet 40 mg PO DAILY 12/16/21 12/16/21 spironolactone 25 mg tablet 25 mg PO DAILY 12/16/21 12/16/21 <Sharri Benito PA-C - Last Filed: 02/10/22 12:10> Allergies/adverse reactions: Allergies Allergy/AdvReac Type Severity Reaction Status Date / Time adhesive tape Allergy Unknown Unknown Verified 12/16/21 19:32 amoxicillin Allergy Unknown Unknown Verified 12/16/21 19:32 ciprofloxacin Allergy Unknown Unknown Verified 12/16/21 19:32 clavulanic acid Allergy Unknown Unknown Verified 12/16/21 19:32 hydromorphone Allergy Unknown Unknown Verified 12/16/21 19:32 morphine Allergy Unknown Unknown Verified 12/16/21 19:32 <Sharri Benito PA-C - Last Filed: 11/14/22 12:10> Review of Systems Review of Systems: Gen.: Denies fevers or chills Eyes: Denies eye pain or visual change ENT: Reports nosebleeds. Denies congestion Respiratory: Denies shortness of breath or cough CV: Denies chest pain or palpitations GI: Denies abdominal pain nausea, emesis or diarrhea denies burning, urgency, frequency or hematuria Musculoskeletal: Denies back pain or muscle pain Neuro: Denies numbness, tingling, weak
[2022-02-10 09:41] LABS: Basophils Absolute Auto 0.1 K/mm3 (0.0-0.1); Basophils Percent Auto 0.7 % (0.2-1.2); Eosinophils Absolute Auto 0.2 K/mm3 (0-0.3); Eosinophils Percent Auto 3.6 % (0-4.4); Hematocrit 37.7 % (37.0-47.0); Hemoglobin 11.9 g/dL (12.0-15.0); Immature Granulocyte Absolute 0.05 K/mm3 (0.00-0.031); Immature Granulocyte Percent A 0.7 % (0-0.5); Lymphocytes Absolute Auto 1.25 K/mm3 (0.9-3.2); Lymphocytes Percent Auto 18.6 % (18.3-44.2); Mean Corpuscular HGB Conc 31.6 g/dl (32-36); Mean Corpuscular Hemoglobin 28.6 pg (26-34); Mean Corpuscular Volume 90.6 fl (80-100); Mean Platelet Volume 11.2 fl (7.4-10.4); Monocytes Absolute Auto 0.7 K/mm3 (0.1-0.6); Monocytes Percent Auto 10.3 % (2.6-8.5); Neutrophils Absolute Auto 4.4 K/mm3 (1.3-6.7); Neutrophils Percent Auto 66.1 % (45.5-73.1); Platelet Count Result 202 k/mm3 (150-375); Red Blood Count 4.16 M/mm3 (4.2-5.4); Red Cell Distribution Width 15.8 % (11.5-14.5); White Blood Count 6.7 K/mm3 (4.5-10.0)
[2022-02-10] MEDS: OXYMETAZOLINE HCL 0.05% NAS 15 ML BTL (*BKC) 1 SPRAY NASAL (09:49)
[2022-02-10 09:54] LABS: Prothrombin Time 21.8 Seconds (11.1-14.7)
[2022-02-10 09:55] LABS: Partial Thromboplastin Time 41.8 SECONDS (22.3-36.8)
[2022-02-10] MEDS: HYDROcodone/acetaminophen (*CRX) 5-325 MG TABLET 1 TAB PO (11:32)
[2022-02-10 12:29] VITALS: BP 130/60; PULSE 81; RESP 18; O2SAT 96
== END 2022-02-10 12:50 ==
PROVIDERS: Physician Assistant; Emergency Provider Emergency Medicine; PCP Family Medicine
DX: R04.0 Epistaxis (principal); I48.0 Paroxysmal atrial fibrillation; I12.9 Hypertensive chronic kidney disease with stage 1 through stage 4 chronic kidney disease, or unspecified chronic kidney disease; E11.22 Type 2 diabetes mellitus with diabetic chronic kidney disease; N18.9 Chronic kidney disease, unspecified; I25.10 Atherosclerotic heart disease of native coronary artery without angina pectoris; J44.9 Chronic obstructive pulmonary disease, unspecified; E78.5 Hyperlipidemia, unspecified; E89.0 Postprocedural hypothyroidism; Z95.5 Presence of coronary angioplasty implant and graft; Z86.73 Personal history of transient ischemic attack (TIA), and cerebral infarction without residual deficits; Z87.440 Personal history of urinary (tract) infections; Z79.4 Long term (current) use of insulin; Z79.01 Long term (current) use of anticoagulants; Z79.82 Long term (current) use of aspirin
CPT/HCPCS: 30901; 36415; 85025; 85610; 85730; 99283; A9270

== ENCOUNTER 2022-09-24 21:00 | Emergency (ER) | payer MEDICARE, OTHER, MEDICAID, SELFPAY ==
--- NOTE | ~2022-09-24 | CT_ITS ---
EXAMINATION: CT brain wo con DATE: 09/24/2022 21:33 INDICATION: seizure . TECHNIQUE: Computed tomography (CT) of the head was performed without intravenous contrast. The mA wa s adjusted according to patient size. Iterative reconstruction technique was employed. The dose-lengt h product was 605.33 mGy-cm. COMPARISON: None. FINDINGS: No acute intracranial hemorrhage or extra-axial fluid collection. No hydrocephalus, mass, or herniation. No acute ischemic infarct. Unremarkable dural venous sinus attenuation. No acute osseous abnormality. The aerated spaces are clear. Moderate atrophy and chronic white matter change. Atherosclerotic intracranial calcification. Large a marilyn of encephalomalacia in the left parietal lobe. IMPRESSION: No acute intracranial process. Reviewed, dictated and finalized at location K.
--- NOTE | ~2022-09-24 | XR_ITS ---
EXAMINATION: XR chest 1V Exam Date/Time: 09/24/2022 21:30 CDT HISTORY: seizure Comparison: 12/15/2021. RESULT: Lines, tubes, and devices: Coronary stent. Lungs and pleura: Low volumes. Rightward rotation. Discoid right mid lung atelectasis. Cardiomediastinal silhouette: Stable. Other: No acute osseous or upper abdominal finding. IMPRESSION: No acute cardiopulmonary process. Reviewed, dictated and finalized at location K.
--- NOTE | 2022-09-24 21:16 | ECG_ITS ---
Measurements Intervals [place] Rate: 76 P: IA: 0 QRS: 81 QRSD: 87 T: 47 QT: 387 QTc: 437 Interpretive Statements ATRIAL FIBRILLATION NONSPECIFIC T-WAVE ABNORMALITY ABNORMAL RHYTHM ECG INTERPRETATION BASED ON A DEFAULT AGE OF 40 YEARS NO PREVIOUS ECG AVAILABLE FOR COMPARISON Electronically Signed On 09-25-2022 11:45:07 CDT by Sam Kramer M.D.
--- NOTE | 2022-09-24 21:17 | ED.SEIZURE ---
HPI - Seizure General Chief Complaint: Seizure <Yasemin Jasso MD - Last Filed: 09/24/22 23:27> Stated Complaint: AMS S/P SEIZURE <Yasemin Jasso MD - Last Filed: 09/24/22 23:27> Time Seen by Provider: 09/24/22 21:13 <Yasemin Jasso MD - Last Filed: 09/24/22 23:27> Source: EMS and RN notes reviewed <Yasemin Jasso MD - Last Filed: 09/24/22 23:27> Mode of arrival: EMS <Yasemin Jasso MD - Last Filed: 09/24/22 23:27> Limitations: altered mental status <Yasemin Jasso MD - Last Filed: 09/24/22 23:27> History of Present Illness HPI Narrative: This is a 77 year old woman from a detention who presents for evaluation of a seizure. EMS states they were today patient had seizure lasting 5 -20 minutes. She was responsive to pain on arrival but not seizing. They were told patient's baseline is oriented x 2 and conversational. IT is also reported that she has history of seizures. <Yasemin Jasso MD - Last Filed: 09/24/22 23:27> Related Data Home Medications: Home Medications Medication Instructions Recorded Confirmed Adult One Daily Multivitamin 1 tablet PO DAILY 12/16/21 12/16/21 Saccharomyces boulardii 250 mg 250 mg PO BID 12/16/21 12/16/21 oral powder packet acetaminophen 500 mg tablet 1,000 mg PO Q6H PRN Pain (Scale 12/16/21 12/16/21 Score 1-3) albuterol sulfate 90 mcg/actuation 2 puff inhalation QID PRN 12/16/21 12/16/21 aerosol inhaler Shortness Of Breath Or Wheezing amiodarone 200 mg tablet 200 mg PO DAILY 12/16/21 12/16/21 aspirin 81 mg tablet,delayed 81 mg PO DAILY 12/16/21 12/16/21 release cetirizine 10 mg tablet 10 mg PO DAILY 12/16/21 12/16/21 fenofibrate 160 mg tablet 145 mg PO DAILY 12/16/21 12/16/21 folic acid 1 mg tablet 1 mg PO DAILY 12/16/21 12/16/21 furosemide 80 mg tablet 80 mg PO DAILY 12/16/21 12/16/21 insulin glargine 100 unit/mL 20 unit subcut BID 12/16/21 12/16/21 subcutaneous solution (Lantus U-100 Insulin) insulin lispro 100 unit/mL 14 unit subcut TIDWM 12/16/21 12/16/21 subcutaneous cartridge (Humalog U-100 Insulin) levothyroxine 175 mcg tablet 175 mcg PO DAILY 12/16/21 12/16/21 linaclotide 145 mcg capsule 145 mcg PO QAM 12/16/21 12/16/21 (Linzess) liothyronine 5 mcg tablet (Cytomel) 5 mcg PO DAILY 12/16/21 12/16/21 lorazepam 0.5 mg tablet 0.5 mg PO Q8H PRN Anxiety 12/16/21 12/16/21 pantoprazole 40 mg tablet,delayed 40 mg PO DAILY 12/16/21 12/16/21 release (Protonix) polyethylene glycol 3350 17 gram 17 g PO DAILY 12/16/21 12/16/21 oral powder packet (Miralax) potassium chloride 20 mEq oral 20 meq PO DAILY 12/16/21 12/16/21 packet rivaroxaban 15 mg tablet (Xarelto) 15 mg PO HS 12/16/21 12/16/21 rosuvastatin 40 mg tablet 40 mg PO DAILY 12/16/21 12/16/21 spironolactone 25 mg tablet 25 mg PO DAILY 12/16/21 12/16/21 <Yasemin Jasso MD - Last Filed: 09/24/22 23:27> Allergies/Adverse Reactions: Allergies Allergy/AdvReac Type Severity Reaction Status Date / Time adhesive tape Allergy Unknown Unknown Verified 12/16/21 19:32 amoxicillin Allergy Unknown Unknown Verified 12/16/21 19:32 ciprofloxacin Allergy Unknown Unknown Verified 12/16/21 19:32 clavulanic acid Allergy Unknown Unknown Verified 12/16/21 19:32 hydromorphone Allergy Unknown Unknown Verified 12/16/21 19:32 morphine Allergy Unknown Unknown Verified 12/16/21 19:32 <Yasemin Jasso MD - Last Filed: 09/24/22 23:27> Review of Systems Review of Systems: ROS unobtainable: Yes unobtainable due to mental status <Yasemin Jasso MD - Last Filed: 09/24/22 23:27> [facility] Past Medical History Medical History: Medical History Cerebrovascular accident Chronic anticoagulation Chronic kidney disease Chronic obstructive pulmonary disease Coronary artery disease Diverticulitis Hyperlipidemia Hypertension Hypothyroidism Paroxysmal atrial fibrillation Type 2 diabetes mellitus Urinar
[2022-09-24 21:40] VITALS: BP 112/87; RESP 20; O2SAT 100
[2022-09-24 21:56] VITALS: TEMP 36.3
[2022-09-24 22:11] LABS: Basophils Percent Auto 0.4 % (0.2-1.2); Eosinophils Absolute Auto 0.2 K/mm3 (0-0.3); Eosinophils Percent Auto 3.1 % (0-4.4); Hemoglobin 12.4 g/dL (12.0-15.0); Immature Granulocyte Absolute 0.05 K/mm3 (0.00-0.031); Immature Granulocyte Percent A 0.7 % (0-0.5); Lymphocytes Absolute Auto 2.24 K/mm3 (0.9-3.2); Lymphocytes Percent Auto 31.2 % (18.3-44.2); Mean Corpuscular HGB Conc 31.8 g/dl (32-36); Mean Corpuscular Hemoglobin 28.7 pg (26-34); Mean Corpuscular Volume 90.3 fl (80-100); Mean Platelet Volume 12.2 fl (7.4-10.4); Monocytes Percent Auto 13.5 % (2.6-8.5); Neutrophils Absolute Auto 3.7 K/mm3 (1.3-6.7); Neutrophils Percent Auto 51.1 % (45.5-73.1); Platelet Count Result 176 k/mm3 (150-375); Red Blood Count 4.32 M/mm3 (4.2-5.4); Red Cell Distribution Width 14.9 % (11.5-14.5); White Blood Count 7.2 K/mm3 (4.5-10.0)
[2022-09-24 22:20] LABS: INR 1.4; Prothrombin Time 18.1 Seconds (11.1-14.7)
[2022-09-24 22:21] LABS: Partial Thromboplastin Time 44.5 SECONDS (22.3-36.8)
[2022-09-24 23:21] LABS: Appearance Urine Turbid (Clear); Bacteria Urine 4+ /hpf; Bilirubin Urine Negative (Negative); Blood Urine 2+ (Negative); Color Urine Yellow (Yellow); Glucose Urine UA Negative (Negative); Ketones Urine Negative (Negative); Leukocyte Esterase Ur 3+ LEU/UL (Negative); Need Manual Microscopic Reviewed; Nitrate Urine Positive (Negative); Protein Urine 1+ mg/dL (Negative); RBC Urine 0-2 /hpf (0-2); Specific Grav Ur 1.013 (1.001-1.035); Squamous Epithelial Cell Urine Occasional /hpf (Few); WBC Urine >100 /hpf; pH Urine 5.5 (5.0-9.0)
[2022-09-24 23:22] LABS: Add Urine Microscopic? YES
[2022-09-24 23:23] VITALS: PULSE 76; RESP 15; O2SAT 99
[2022-09-24 23:45] LABS: Alanine Aminotransferase 57 U/L (6-35); Albumin Level 3.5 g/dL (3.5-5.1); Alkaline Phosphatase 194 U/L (38-126); Anion Gap 2 mmol/L (8-16); Aspartate Amino Transferase 97 U/L (14-36); Bilirubin,Total 0.5 mg/dL (0.2-1.3); Blood Urea Nitrogen 48 mg/dL (7-17); Calcium 9.7 mg/dL (8.4-10.2); Carbon Dioxide 34 mmol/L (22-30); Chloride 101 mmol/L (98-107); Estimated CRCL calculation 30 ml/min; Estimated Glomerular Filt Rate 29; Glucose 124 mg/dL (65-110); Potassium 4.9 mmol/L (3.4-5.0); Sodium 137 mmol/L (137-145)
[2022-09-25 00:45] VITALS: BP 134/90; PULSE 76; RESP 17; O2SAT 97
== END 2022-09-25 03:10 ==
PROVIDERS: Emergency Provider General Practice; PCP Family Medicine
DX: R56.9 Unspecified convulsions (principal); N39.0 Urinary tract infection, site not specified; I25.10 Atherosclerotic heart disease of native coronary artery without angina pectoris; E78.5 Hyperlipidemia, unspecified; E03.9 Hypothyroidism, unspecified; I48.0 Paroxysmal atrial fibrillation; E11.9 Type 2 diabetes mellitus without complications; Z86.73 Personal history of transient ischemic attack (TIA), and cerebral infarction without residual deficits; Z79.01 Long term (current) use of anticoagulants
CPT/HCPCS: 36415; 70450; 71045; 80053; 81001; 85025; 85610; 85730; 87077; 87086; 87186; 93005; 96365; 99284; J0696

== ENCOUNTER 2022-12-06 23:05 | Inpatient (IN) | payer MEDICARE, OTHER, MEDICAID, SELFPAY ==
--- NOTE | ~2022-12-06 | CT_ITS ---
EXAMINATION: CT brain wo con DATE: 12/06/2022 23:35 INDICATION: Confusion TECHNIQUE: Computed tomography (CT) of the head was performed without intravenous contrast. The mA wa s adjusted according to patient size. Iterative reconstruction technique was employed. Exam dose: 60 5.33 mGy-cm total exam DLP. COMPARISON: 09/24/2022 CT brain FINDINGS: There is a chronic area of encephalomalacia in the left posterior temporal/parietal and occ ipital area likely consistent with old cerebrovascular accident, stable since 09/24/2022. Small chronic posterior high right parietal cerebrovascular infarct. No intracranial mass lesion or hemorrhage or recent cerebrovascular accident is detected. Prominent bilateral vertebral artery calcifications and carotid siphon internal carotid artery calcif ications are noted. There is nonspecific diminished in attenuation of the cerebral white matter, like ly due to chronic small vessel ischemic changes. No midline shift or mass effect. No subdural or epidural hematoma. No fracture or bone destruction of the cranial vault. The paranasal sinuses and mastoid air cells are unremarkable. IMPRESSION: Cerebral atherosclerosis and chronic small vessel ischemic changes of the cerebral white matter Small focal posterior right parietal chronic encephalomalacia and large posterior left temporal, nelson etal and occipital encephalomalacia, likely due to old infarcts, stable since 09/24/2022 Reviewed, dictated and finalized at Location [facility]. Reviewed, dictated and finalized at location A. IMPRESSION: Cerebral atherosclerosis and chronic small vessel ischemic changes of the cerebral white matter Small focal posterior right parietal chronic encephalomalacia and large posteri or left temporal, parietal and occipital encephalomalacia, likely due to old in farcts, stable since 09/24/2022
--- NOTE | ~2022-12-06 | XR_ITS ---
XR chest 1V portable DATE: 12/06/2022 23:39 INDICATION: Shortness of breath TECHNIQUE: Portable AP views on 12/06/2022 at 2336 hours COMPARISON: 09/24/2022 AP chest FINDINGS: Rotated portable study. Again noted is a discoid density overlying the right mid lung field, which ma y be due to focal infiltrate or atelectasis at the minor fracture versus subpleural edema at the carmen r fissure. Cardiomegaly. Aortic unfolding. Infiltrate or atelectasis is suggested in the right lower lung. No pleural effusion or pulmonary vascular congestion or pneumothorax is evident. Diffuse osteopenia. IMPRESSION: Limited rotated portable study Right mid and lower lung infiltrate or atelectasis cannot be excluded Cardiomegaly Reviewed, dictated and finalized at location A.
--- NOTE | ~2022-12-06 | CT_ITS ---
EXAMINATION: CT abdomen pelvis wo con DATE: 12/07/2022 01:53 INDICATION: Abdominal distention TECHNIQUE: Computed tomography (CT) of the abdomen and pelvis was performed without intravenous contr ast. Automated exposure control and iterative reconstruction technique were employed. Exam dose: 169 2.96 mGy-cm total exam DLP. COMPARISON: 12/17/2021 Limited right upper quadrant ultrasound 12/16/2021 CT abdomen pelvis FINDINGS: Mild discoid atelectasis or scarring in the lower lung zones. Cardiomegaly. Coronary artery calcifications. No pericardial or pleural effusion. Status post cholecystectomy. No bile duct or pancreatic duct dilatation. No hepatic, splenic, pancreatic, right adrenal space-occupying mass lesion is evident. 2.1 cm left adrenal soft tissue mass, stable retrospectively since 12/16/2021. Stable up to approximately 6 cm right renal cyst. No urinary tract calculus or hydroureteronephrosis. Abdominal aortic calcification, without aneurysm. Prominent celiac and superior mesenteric and right renal artery calcifications. No intraperitoneal or retroperitoneal or pelvic mass lesion or adenopathy or ascites. Moderate diffuse thickening of the urinary bladder wall; recommend clinical correlation to exclude cy stitis. Status post hysterectomy. Prominent amount of fecal material in the rectosigmoid area. No bowel obstruction, bowel wall thicken ing, pneumatosis or intraperitoneal free air. No suspicious osteolytic or osteoblastic lesions are noted. IMPRESSION: Cardiomegaly, coronary atherosclerosis Status post cholecystectomy Stable 2.1 cm left adrenal mass Stable the 6 cm right renal cyst Status post hysterectomy Reviewed, dictated and finalized at Location [facility]. Reviewed, dictated and finalized at location A.
--- NOTE | ~2022-12-06 | XR_ITS ---
Portable chest x-ray Comparison: 12/07/2022 Clinical History: Hypoxia Findings: There is probable mild central congestive change and minimal pulmonary edema. There is eileen ear scarring right midlung. Cardiomediastinal silhouette is stable. Bones and soft tissues are unrem arkable. Impression: Probable mild pulmonary edema and central congestive change. Linear scarring right midlung. Reviewed, dictated and finalized at location . Impression: Probable mild pulmonary edema and central congestive change. Linear scarring right midlung.
--- NOTE | ~2022-12-06 | XR_ITS ---
EXAMINATION: XR chest PICC line Exam Date/Time: 12/07/2022 15:55 CDT HISTORY: picc line placement Comparison: 12/06/2022. RESULT: Lines, tubes, and devices: New right upper extremity PICC terminating in the superior vena cava. Lungs and pleura: Rightward rotation. Right midlung scar/atelectasis. Improved aeration of the right lower lung. Increased diffuse reticular opacities. Cardiomediastinal silhouette: Stable. Other: No acute osseous or upper abdominal finding. IMPRESSION: New right upper extremity PICC, terminating in the superior vena cava. Interstitial edema. Reviewed, dictated and finalized at location K. IMPRESSION: New right upper extremity PICC, terminating in the superior vena cava. Intersti tial edema.
--- NOTE | ~2022-12-06 | CT_ITS ---
EXAMINATION: CT brain wo con DATE: 12/11/2022 07:53 INDICATION: Altered mental status TECHNIQUE: Computed tomography (CT) of the head was performed without intravenous contrast. The dose- length product was 681.00 mGy-cm. Automated exposure control and iterative reconstruction technique w ere employed. COMPARISON: CT dated 12/06/2022 and 09/24/2022 FINDINGS: Generalized atrophy. Chronic right posterior parietal infarction. Chronic left parietal and occipital lobe infarctions. There are scattered moderate periventricular and subcortical white matte r changes, most likely related to small vessel ischemic disease (microangiopathy). No ventriculomegal y or midline shift. Basilar cisterns are patent. There is intracranial atherosclerosis. No acute infa rction, hemorrhage, mass or mass effect. No depressed skull fractures. IMPRESSION: 1. No acute intracranial abnormality. No significant interval change. Reviewed, dictated and finalized at location L.
--- NOTE | ~2022-12-06 | US_ITS ---
EXAMINATION: US venous doppler [facility] DATE: 12/10/2022 14:08 INDICATION: Lower limb edema. TECHNIQUE: Grayscale ultrasound images without and with compression and Doppler ultrasound images of the bilateral lower extremity veins were obtained. COMPARISON: None. FINDINGS: The visualized portions of right common femoral vein, profunda (deep) femoral vein, femoral vein, pop liteal vein, peroneal veins, posterior tibial veins, and greater saphenous vein outflow are patent. The visualized portions of left common femoral vein, profunda femoral vein, femoral vein, popliteal v ein, peroneal veins, posterior tibial veins, and greater saphenous vein outflow are patent. IMPRESSION: 1. No deep venous thrombosis. Reviewed, dictated and finalized at location A.
[2022-12-06 23:04] VITALS: BP 135/119; PULSE 76; RESP 16; TEMP 36.4; O2SAT 97
[2022-12-06 23:19] LABS: Glucose Point of Care 171 mg/dl (65-105)
--- NOTE | 2022-12-06 23:29 | ECG_ITS ---
Measurements Intervals [place] Rate: 74 P: 77 FL: 298 QRS: 66 QRSD: 88 T: 112 QT: 350 QTc: 390 Interpretive Statements SINUS RHYTHM WITH FIRST DEGREE AV BLOCK NONSPECIFIC ST & T-WAVE ABNORMALITY- INF/HIGH LAT LEADS BASELINE ARTIFACT- I, III, AVR, AVL, AVF, V2 BORDERLINE ECG COMPARED TO ECG 09/24/2022 22:12:14 NO SIGNIFICANT CHANGES Electronically Signed On 12-07-2022 7:06:13 CDT by Yevgeniy Dong D.O.
[2022-12-06 23:49] VITALS: BP 148/95; PULSE 78; RESP 14; O2SAT 100
[2022-12-06 23:53] VITALS: RESP 14; O2SAT 100
[2022-12-06 23:54] LABS: Alanine Aminotransferase 38 U/L (6-35); Albumin Level 3.2 g/dL (3.5-5.1); Alkaline Phosphatase 151 U/L (38-126); Anion Gap 4 mmol/L (8-16); Aspartate Amino Transferase 53 U/L (14-36); Bilirubin,Total 0.6 mg/dL (0.2-1.3); Blood Urea Nitrogen 91 mg/dL (7-17); Calcium 8.7 mg/dL (8.4-10.2); Carbon Dioxide 32 mmol/L (22-30); Chloride 101 mmol/L (98-107); Estimated Glomerular Filt Rate 20; Glucose 178 mg/dL (65-110); Potassium 4.8 mmol/L (3.4-5.0); Sodium 137 mmol/L (137-145)
[2022-12-06 23:54] LABS: Estimated Glomerular Filt Rate 16
[2022-12-06 23:57] VITALS: BP 148/95; PULSE 80; RESP 17; O2SAT 100
[2022-12-07] VITALS (55 sets, daily range): BP systolic 95–150; BP diastolic 50–132; PULSE 65–82; RESP 11–20; TEMP 35–36.5; O2SAT 92–100; BMI 41.2
[2022-12-07] LABS: INR 1.5; Prothrombin Time 19.4 Seconds (11.1-14.7)
[2022-12-07 00:01] LABS: Partial Thromboplastin Time 53.9 SECONDS (22.3-36.8)
[2022-12-07] MEDS: levETIRAcetam 500MG/NACL 100ML 500 MG/100 ML BAG 400 MG IVPB (00:03)
[2022-12-07 00:06] LABS: Troponin I 0.019 ng/mL (0.000-0.034)
[2022-12-07 00:07] LABS: Basophils Absolute Auto 0.1 K/mm3 (0.0-0.1); Basophils Percent Auto 0.6 % (0.2-1.2); Eosinophils Percent Auto 11.1 % (0-4.4); Hematocrit 25.1 % (37.0-47.0); Hemoglobin 7.4 g/dL (12.0-15.0); Immature Granulocyte Absolute 0.08 K/mm3 (0.00-0.031); Immature Granulocyte Percent A 0.9 % (0-0.5); Immature Platelet Fraction Pct 10.1 % (0.9-11.2); Lymphocytes Absolute Auto 1.84 K/mm3 (0.9-3.2); Lymphocytes Percent Auto 20.4 % (18.3-44.2); Mean Corpuscular HGB Conc 29.5 g/dl (32-36); Mean Corpuscular Hemoglobin 31.1 pg (26-34); Mean Corpuscular Volume 105.5 fl (80-100); Monocytes Percent Auto 11.3 % (2.6-8.5); Neutrophils Percent Auto 55.7 % (45.5-73.1); Platelet Count Result 186 k/mm3 (150-375); Red Blood Count 2.38 M/mm3 (4.2-5.4); Red Cell Distribution Width 18.5 % (11.5-14.5)
--- NOTE | 2022-12-07 00:31 | ED.NEUROSD ---
HPI - Neuro Symptoms/Deficit General Chief Complaint: Neuro Symptoms/Deficit Stated Complaint: SEIZURE, AMS Time Seen by Provider: 12/06/22 23:13 History of Present Illness HPI Narrative: Patient brought to the emergency department by EMS from her custodial facility. EMS contributes to the history as well as her son. Son states that the patient has a history of a stroke as well as seizures. In the past when she has presented confused like that she normally has a urinary tract infection. Son states that her decreased mental status and confusion started a couple days ago but then resolved. Today it has been waxing and waning all day. Unclear exactly when her last known normal was. Patient is generally weak and uses a Yoni lift to move however she is alert and oriented x4 at baseline. She has a history of sundowning and at night gets confused. Patient is laying flat on the bed with eyes closed. Appears very drowsy but can wake up and answer basic questions. She moves all extremities upon command. Vital signs are stable. Abdomen is tight in the upper aspect patient seems tender. Patient was initially treated as a code stroke. EMS states patient had seizure prior to the picking her up Related Data Home Medications Medication Instructions Recorded Confirmed Adult One Daily Multivitamin 1 tablet PO DAILY 12/16/21 12/16/21 Saccharomyces boulardii 250 mg 250 mg PO BID 12/16/21 12/16/21 oral powder packet acetaminophen 500 mg tablet 1,000 mg PO Q6H PRN Pain (Scale 12/16/21 12/16/21 Score 1-3) albuterol sulfate 90 mcg/actuation 2 puff inhalation QID PRN 12/16/21 12/16/21 aerosol inhaler Shortness Of Breath Or Wheezing amiodarone 200 mg tablet 200 mg PO DAILY 12/16/21 12/16/21 aspirin 81 mg tablet,delayed 81 mg PO DAILY 12/16/21 12/16/21 release cetirizine 10 mg tablet 10 mg PO DAILY 12/16/21 12/16/21 fenofibrate 160 mg tablet 145 mg PO DAILY 12/16/21 12/16/21 folic acid 1 mg tablet 1 mg PO DAILY 12/16/21 12/16/21 furosemide 80 mg tablet 80 mg PO DAILY 12/16/21 12/16/21 insulin glargine 100 unit/mL 20 unit subcut BID 12/16/21 12/16/21 subcutaneous solution (Lantus U-100 Insulin) insulin lispro 100 unit/mL 14 unit subcut TIDWM 12/16/21 12/16/21 subcutaneous cartridge (Humalog U-100 Insulin) levothyroxine 175 mcg tablet 175 mcg PO DAILY 12/16/21 12/16/21 linaclotide 145 mcg capsule 145 mcg PO QAM 12/16/21 12/16/21 (Linzess) liothyronine 5 mcg tablet (Cytomel) 5 mcg PO DAILY 12/16/21 12/16/21 lorazepam 0.5 mg tablet 0.5 mg PO Q8H PRN Anxiety 12/16/21 12/16/21 pantoprazole 40 mg tablet,delayed 40 mg PO DAILY 12/16/21 12/16/21 release (Protonix) polyethylene glycol 3350 17 gram 17 g PO DAILY 12/16/21 12/16/21 oral powder packet (Miralax) potassium chloride 20 mEq oral 20 meq PO DAILY 12/16/21 12/16/21 packet rivaroxaban 15 mg tablet (Xarelto) 15 mg PO HS 12/16/21 12/16/21 rosuvastatin 40 mg tablet 40 mg PO DAILY 12/16/21 12/16/21 spironolactone 25 mg tablet 25 mg PO DAILY 12/16/21 12/16/21 Allergies Allergy/AdvReac Type Severity Reaction Status Date / Time adhesive tape Allergy Unknown Unknown Verified 12/16/21 19:32 amoxicillin Allergy Unknown Unknown Verified 12/16/21 19:32 ciprofloxacin Allergy Unknown Unknown Verified 12/16/21 19:32 clavulanic acid Allergy Unknown Unknown Verified 12/16/21 19:32 hydromorphone Allergy Unknown Unknown Verified 12/16/21 19:32 morphine Allergy Unknown Unknown Verified 12/16/21 19:32 Review of Systems Review of Systems: Review of systems negative except for what was noted in the HPI. Somewhat limited due to patient's altered mental status PMFSH Past Medical History Medical History Cerebrovascular accident Chronic anticoagulation Chronic kidney disease Chronic obstructive pulmonary disease Coronary artery disease Diverticulitis Hyperlipidemia Hypertension Hypothyroidism Paroxysmal atrial fibrillation
[2022-12-07 00:40] LABS: Appearance Urine Cloudy (Clear); Bacteria Urine 2+ /hpf; Bilirubin Urine Negative (Negative); Blood Urine Trace (Negative); Color Urine Yellow (Yellow); Glucose Urine UA Negative (Negative); Ketones Urine Negative (Negative); Leukocyte Esterase Ur 3+ LEU/UL (Negative); Nitrate Urine Negative (Negative); Protein Urine Negative (Negative); RBC Urine 0-2 /hpf (0-2); Specific Grav Ur 1.011 (1.001-1.035); Squamous Epithelial Cell Urine None seen /hpf (Few); Urobilinogen Urine 0.2 mg/dL (<2.0); WBC Urine >100 /hpf
[2022-12-07 00:59] LABS: Add Urine Microscopic? YES
[2022-12-07 03:35] LABS: Troponin I 0.017 ng/mL (0.000-0.034)
[2022-12-07] MEDS: SODIUM CHLORIDE 0.9% IV 1,000 ML 999 ML IV CONT ×3 (05:00→08:11)
[2022-12-07 05:16] LABS: Lactic Acid Reflex 0.8 mmol/L (0.7-2.0)
--- NOTE | 2022-12-07 07:15 | PC.NURSE ---
report from bhakti goel. pt resting quietly in darkened room for comfort. waiting on ct results. pending further orders
--- NOTE | 2022-12-07 08:30 | PC.NURSE ---
pt yelling saleem from room. when going to bedside to speak with pt she asks why she is here. update given. pt then questioned where she is. responds with i know where i am . when asked to tell me her location replies with mumbled incoherent speech.
--- NOTE | 2022-12-07 09:13 | ADMGEN ---
This patient, Marleen Perla, was admitted to IMU Room 206-02 at 0910. Patient/family oriented to hospital policies and general routines including ID bracelet, bed and alarms, visiting hours, pain management, procedures, bathroom and other care routines, personal items, smoking policy, room service/diet, and visiting hours. Information on how to activate the Rapid Response Team has been discussed. Patient/Family are encouraged to report perceived risks to care and to ask questions if they do not understand what they are told or what they should do.
[2022-12-07] MEDS: SODIUM CHLORIDE 0.9% IV 500 ML 999 ML IV CONT (10:55)
--- NOTE | 2022-12-07 14:27 | PM.IMHP ---
H&P: HPI History of Present Illness Date/Time: 12/07/22 18:30 Chief Complaint: Altered mental status, suspected seizure. Narrative: This is a 77-year-old female with history of stroke, seizures, paroxysmal atrial fibrillation on chronic anticoagulation, coronary artery disease, congestive heart failure, hypertension, insulin-dependent diabetes, chronic kidney disease stage IV, chronic obstructive pulmonary disease, and hypothyroidism who presented to the emergency department via EMS from [facility] for evaluation of altered mental status and suspected seizure. The patient is not the greatest historian and some of the following is supplemented via a review of her EMR and information provided by her son and significant other. She is chronically weak and debilitated and transfers with a Yoni. She is alert and oriented x4 at baseline though does have the tendency to sundown. Son indicates that she has been confused the last couple of days and her mentation had been waxing and waning all day yesterday. It is my understanding that she is currently on antibiotics for both cellulitis of the right leg and urinary tract infection. Last evening staff at her custodial report possible seizure-like activity with increasing confusion and she was sent into the ED. She was afebrile on arrival with stable vital signs. Labs were significant for a hemoglobin of 7.4 which is several grams lower than what she typically runs and an increased BUN and creatinine from baseline. UA was positive for 3+ leukocyte esterase, greater than 100 WBCs, and 2+ bacteria. Chest x-ray was limited due to rotation but showed right mid and lower lung infiltrate or atelectasis not excluded. CT of the head, abdomen, and pelvis did not show any acute findings. Interventions in the ED include several L fluid bolus, 500 mg IV levetiracetam, and ceftriaxone 1 g IV. She is being admitted in this setting for further treatment and evaluation. At the time my evaluation she is more alert and awake. She is noted to have bruising and excoriations in multiple locations throughout her body and she is frequently scratching at her arms. With further questioning this is apparently been going on for upwards of 4 weeks. She has never had similar symptoms. She is unaware of anyone else in her custodial with similar symptoms. She has not had any recent changes to her medications and she denies using new soaps, lotions, or detergents. She also denies fall, trauma, and injury. Review of Systems Review of Systems: Twelve systems were reviewed. No headache. She does feel a bit confused. No fever, chills, or sweats. Denies cold and flu symptoms. No chest pain or shortness of breath. Appetite has not been great. No nausea or vomiting. Frequently constipated. Except as documented, all other systems were reviewed and are negative. [facility] Past Medical History Medical History Cerebrovascular accident Chronic anticoagulation Chronic kidney disease Chronic obstructive pulmonary disease Chronic respiratory failure Coronary artery disease Diverticulitis Hyperlipidemia Hypertension Hypothyroidism Insulin dependent type 2 diabetes mellitus On home O2 Paroxysmal atrial fibrillation Seizure disorder Urinary tract infection Surgical History Surgical History History of ankle surgery ORIF left ankle fracture. History of appendectomy History of cholecystectomy History of colonoscopy with polypectomy History of coronary artery stent placement History of thyroidectomy Family History Family History Other Unknown family medical history Social History Social History Social History: Surrogate medical decision maker: Michael Perla, son. Code status: Do not resuscitate. Smoking stat
[2022-12-07 17:00] LABS: Glucose Point of Care 104 mg/dl (65-105)
[2022-12-07 17:52] LABS: Alanine Aminotransferase 35 U/L (6-35); Alkaline Phosphatase 130 U/L (38-126); Aspartate Amino Transferase 56 U/L (14-36); Bilirubin,Total 0.5 mg/dL (0.2-1.3)
[2022-12-07 17:57] LABS: Hemoglobin A1C 6.4 % (<5.7); Iron 25 ug/dL (37-170)
[2022-12-07 18:06] LABS: Percent Iron Saturation 7 % (20-50)
[2022-12-07 18:14] LABS: Anion Gap 6 mmol/L (8-16); Blood Urea Nitrogen 74 mg/dL (7-17); Calcium 8.1 mg/dL (8.4-10.2); Carbon Dioxide 28 mmol/L (22-30); Chloride 108 mmol/L (98-107); Creatine Kinase 78 U/L (30-135); Estimated CRCL calculation 27 ml/min; Estimated Glomerular Filt Rate 24; Glucose 105 mg/dL (65-110); Potassium 4.1 mmol/L (3.4-5.0); Sodium 142 mmol/L (137-145)
[2022-12-07 18:28] LABS: Magnesium 2.2 mg/dL (1.6-2.3)
[2022-12-07] MEDS: SODIUM CHLORIDE 0.9% IV 250 ML 30 ML IV CONT (18:29)
[2022-12-07] MEDS: PREGABALIN (*CRX) 75 MG CAPSULE 150 MG PO (18:34)
[2022-12-07] MEDS: levETIRAcetam 250 MG TABLET PO (18:34)
[2022-12-07] MEDS: DOCUSATE SODIUM 100 MG CAPSULE PO (18:34)
[2022-12-07] MEDS: SACCHAROMYCES BOULARDII 250 MG CAPSULE PO (18:34)
[2022-12-07] MEDS: SENNOSIDES 8.6 MG TABLET 17.2 MG PO (18:34)
[2022-12-07 19:00] LABS: Folic Acid > 20.0 ng/mL (2.76->20); Vitamin B12 > 1000.0 pg/mL (239-931)
[2022-12-07 19:37] LABS: Free T4 Free Thyroxine Reflex 1.61 ng/dL (0.78-2.19)
[2022-12-07 19:59] LABS: Glucose Point of Care 106 mg/dl (65-105)
[2022-12-07 20:31] LABS: Phosphorus 4.8 mg/dL (2.5-4.5)
[2022-12-07 20:41] LABS: Total Triiodothyronine (T3) 0.55 NG/ML (0.97-1.69)
[2022-12-07] MEDS: VENLAFAXINE HCL 25 MG TABLET 50 MG PO (21:59)
[2022-12-07] MEDS: CENTRAL LINE FLUSH 10 ML IV PUSH (21:59)
[2022-12-07] MEDS: DICYCLOMINE HCL 10 MG CAPSULE PO (22:02)
[2022-12-08] VITALS (13 sets, daily range): BP systolic 111–151; BP diastolic 45–82; PULSE 67–78; RESP 20–28; TEMP 36–36.5; O2SAT 94–100
[2022-12-08] MEDS: LEVOTHYROXINE SODIUM 150 MCG TABLET PO (06:21)
[2022-12-08] MEDS: CENTRAL LINE FLUSH 10 ML IV PUSH ×3 (06:22→21:27)
[2022-12-08 07:44] LABS: Glucose Point of Care 108 mg/dl (65-105)
[2022-12-08] MEDS: PREGABALIN (*CRX) 75 MG CAPSULE 150 MG PO ×2 (08:41→17:30)
[2022-12-08] MEDS: LORATADINE 10 MG TABLET PO (08:42)
[2022-12-08] MEDS: polyethylene glycoL 3350 17 GM POWD.PACK PO (08:42)
[2022-12-08] MEDS: DICYCLOMINE HCL 10 MG CAPSULE PO ×2 (08:42→21:27)
[2022-12-08] MEDS: PANTOPRAZOLE 40 MG TABLET PO (08:42)
[2022-12-08] MEDS: levETIRAcetam 250 MG TABLET PO ×2 (08:42→17:29)
[2022-12-08] MEDS: CYANOCOBALAMIN 1,000 MCG TABLET 1000 MCG PO (08:42)
[2022-12-08] MEDS: LIOTHYRONINE SODIUM 5 MCG TABLET PO (08:42)
[2022-12-08] MEDS: FERROUS SULFATE 325 MG TABLET DR PO (08:42)
[2022-12-08] MEDS: SACCHAROMYCES BOULARDII 250 MG CAPSULE PO ×2 (08:42→17:29)
[2022-12-08] MEDS: MULTIVITAMINS THERAPEUTIC TAB (*BKC) 1 TABLET PO (08:42)
[2022-12-08] MEDS: AMIODARONE HCL 200 MG TABLET PO (08:42)
[2022-12-08] MEDS: VENLAFAXINE HCL 75 MG TABLET PO (08:42)
[2022-12-08] MEDS: TOLNAFTATE 1% POWDER 45 GM BTL 1 APPLIC TOPICAL ×3 (08:43→21:26)
--- NOTE | 2022-12-08 09:27 | PM.IMPN ---
Progress Note: A&P Assessment and Plan (1) Encephalopathy: Code(s): G93.40 - Encephalopathy, unspecified Status: Acute Assessment and Plan: She reportedly had seizure activity the last evening and initially she was most likely postictal. She remains confused however and I suspect this is related to worsening renal function and uremia. Urine is also abnormal, concerning for UTI. Stroke seems less likely. Continue neurologic checks and close monitoring. 12/08: TSH quite elevated, suspect non compliance with levothyroxine, monitor in 4-6 weeks after taking current dose daily (2) Acute on chronic kidney failure: Code(s): N17.9 - Acute kidney failure, unspecified; N18.9 - Chronic kidney disease, unspecified Status: Acute Assessment and Plan: BUN and creatinine are elevated from baseline. She looks a bit dry on exam at this time however has not had any oral intake since last evening. Johnson catheter yielded over 700 cc of urine upon insertion and her renal function has also improved with IV fluids. Continue cautious IV fluid rehydration with close monitoring of volume status. Avoid nephrotoxic agents. Nephrology consulted given concerns for possible calciphylaxis. 12/08: Much improved with IV fluids, continue to monitor with fluid resuscitation (3) Urinary tract infection: Code(s): N39.0 - Urinary tract infection, site not specified Status: Acute Assessment and Plan: Abnormal UA, Rocephin started 12/07 Follow-up urine culture (4) Macrocytic anemia: Code(s): D53.9 - Nutritional anemia, unspecified Status: Acute Assessment and Plan: Hemoglobin is several g lower than what she typically runs. She has multiple, possible areas of bruising with a differential to include calciphylaxis, though no hematoma is noted and she denies blood loss. Perhaps related to worsening renal function? Iron studies, B12, folate, and stool for occult blood ordered for further evaluation. Monitor H&H closely. (5) Seizure disorder: Code(s): G40.909 - Epilepsy, unspecified, not intractable, without status epilepticus Status: Acute Assessment and Plan: Continue levetiracetam. (6) Paroxysmal atrial fibrillation: Code(s): I48.0 - Paroxysmal atrial fibrillation Status: Acute Assessment and Plan: Currently in a sinus rhythm. Continue amiodarone. (7) Insulin dependent type 2 diabetes mellitus: Code(s): E11.9 - Type 2 diabetes mellitus without complications; Z79.4 - extermination inspector (current) use of insulin Status: Acute Assessment and Plan: Initiate sliding scale insulin, Accu-Cheks, and hypoglycemic protocol, A1c 6.4 Blood glucose reviewed 12/08 (8) Cellulitis of right leg: Code(s): L03.115 - Cellulitis of right lower limb Status: Acute Assessment and Plan: Currently on ceftriaxone for possible UTI which should cover cellulitis as well. No history of MRSA. Plan DVT prophylaxis with SCDs GI prophylaxis not indicated Code status DNR Subjective Date/time seen: 12/08/22 09:27 Interval history: 77-year-old female with history of stroke, seizures, paroxysmal atrial fibrillation on chronic anticoagulation, coronary artery disease, congestive heart failure, hypertension, insulin-dependent diabetes, chronic kidney disease stage IV, chronic obstructive pulmonary disease, and hypothyroidism who presented to the emergency department via EMS from [facility] for evaluation of altered mental status and suspected seizure and is currently being treated for UTI, FARNAZ, anemia. No overnight events noted. No chest pain or shortness of breath. No nausea, vomiting or diarrhea. No fevers or chills. Review of Systems Review of Systems: 12 point review of systems was assessed and was negative except as noted in the HPI Exam Narrative: General: No acute distress, alert and oriented per bas
--- NOTE | 2022-12-08 09:50 | P.CONNP_ITS ---
Assessment and Plan Assessment and plan (1) FRANAZ (acute kidney injury): Code(s): N17.9 - Acute kidney failure, unspecified Status: Acute Assessment and Plan: * improving * presumably secondary to UTI/infection and prerenal factors * imaging without evidence of obstruction * follow trend of labs given improvement in renal function * continue supportive therapy (2) Chronic kidney disease, stage IV (severe): Code(s): N18.4 - Chronic kidney disease, stage 4 (severe) Status: Chronic Assessment and Plan: * baseline creatinine runs around 1.7 - 2.0mg/dl in the last year * presumably secondary to hypertension, diabetes, vascular disease, recurret UTIs, and age-related change * follow with Dr. Luis Enrique Cowan (3) Altered mental status: Code(s): R41.82 - Altered mental status, unspecified Status: Acute Assessment and Plan: * due to acute infection (cellulitis + UTI) versus seizure versus progression of dementia/sundowning(?) * seems a bit better in general * follow mental status (4) Urinary tract infection: Code(s): N39.0 - Urinary tract infection, site not specified Status: Acute Assessment and Plan: * admission UA highly suggestive * follow-up on urine culture * on antibitoics (5) Cellulitis of right leg: Code(s): L03.115 - Cellulitis of right lower limb Status: Acute Assessment and Plan: * apparenty diagnosed at nursing facility * on antibiotics * follow culture data (6) Insulin dependent type 2 diabetes mellitus: Code(s): E11.9 - Type 2 diabetes mellitus without complications; Z79.4 - extermination supervisor (current) use of insulin Status: Acute Assessment and Plan: * follow accu-cheks * glycemic control per hospitalists I will continue follow the patient with you while she remains hospitalized and make further recommendations as needed. Thank you for allowing me to participate in the care of this patient. History of Present Illness Reason for Consult Consult date: 12/08/22 Reason for consult: acute renal failure (on chronic kidney disease) Chief Complaint Chief complaint: ams History of Present Illness Narrative: Most of the history that have obtained is from review of the electronic medical record as well as discussion with family at bedside as well as her son by phone as is difficult to get a full and complete history from the patient given her intermittent confusion. The patient is a 77-year-old female with an extensive past medical history as outlined below who presented to [facility] Emergency Room via EMS from her nursing facility for further evaluation of altered mental status and suspected seizure. The patient is chronically weak and debilitated and somewhat bed-bound requiring transfers with a Yoni lift. She apparently at baseline is alert and oriented x4 but does have a tendency does sundown. Her son reports that she has been confused for the last few days and her mentation has been waxing waning all day on day prior to her admission. On the evening prior to admission, the nursing staff at her facility apparently in noted what we was a possible seizure-like activity in association with her increasing confusion. Given these events/findings, she was subsequently transferred to the emergency room for further assessment. Workup and evaluation emergency room demonstrated patient be hemodynamically stable and without fever. Routine blood tests were significant for anemia as well as an increased BUN and creatinine above her baseli
--- NOTE | 2022-12-08 09:50 | PM.CNNEP ---
Assessment and Plan Assessment and plan (1) FARNAZ (acute kidney injury): Code(s): N17.9 - Acute kidney failure, unspecified Status: Acute Assessment and Plan: improving presumably secondary to UTI/infection and prerenal factors imaging without evidence of obstruction follow trend of labs given improvement in renal function continue supportive therapy (2) Chronic kidney disease, stage IV (severe): Code(s): N18.4 - Chronic kidney disease, stage 4 (severe) Status: Chronic Assessment and Plan: baseline creatinine runs around 1.7 - 2.0mg/dl in the last year presumably secondary to hypertension, diabetes, vascular disease, recurret UTIs, and age-related change follow with Dr. Luis Enrique Cowan (3) Altered mental status: Code(s): R41.82 - Altered mental status, unspecified Status: Acute Assessment and Plan: due to acute infection (cellulitis + UTI) versus seizure versus progression of dementia/sundowning(?) seems a bit better in general follow mental status (4) Urinary tract infection: Code(s): N39.0 - Urinary tract infection, site not specified Status: Acute Assessment and Plan: admission UA highly suggestive follow-up on urine culture on antibitoics (5) Cellulitis of right leg: Code(s): L03.115 - Cellulitis of right lower limb Status: Acute Assessment and Plan: apparenty diagnosed at nursing facility on antibiotics follow culture data (6) Insulin dependent type 2 diabetes mellitus: Code(s): E11.9 - Type 2 diabetes mellitus without complications; Z79.4 - terminal operator (current) use of insulin Status: Acute Assessment and Plan: follow accu-cheks glycemic control per hospitalists I will continue follow the patient with you while she remains hospitalized and make further recommendations as needed. Thank you for allowing me to participate in the care of this patient. History of Present Illness Reason for Consult Consult date: 12/08/22 Reason for consult: acute renal failure (on chronic kidney disease) Chief Complaint Chief complaint: ams History of Present Illness Narrative: Most of the history that have obtained is from review of the electronic medical record as well as discussion with family at bedside as well as her son by phone as is difficult to get a full and complete history from the patient given her intermittent confusion. The patient is a 77-year-old female with an extensive past medical history as outlined below who presented to [facility] Emergency Room via EMS from her nursing facility for further evaluation of altered mental status and suspected seizure. The patient is chronically weak and debilitated and somewhat bed-bound requiring transfers with a Yoni lift. She apparently at baseline is alert and oriented x4 but does have a tendency does sundown. Her son reports that she has been confused for the last few days and her mentation has been waxing waning all day on th day prior to her admission. On the evening prior to admission, the nursing staff at her facility apparently in noted what we was a possible seizure-like activity in association with her increasing confusion. Given these events/findings, she was subsequently transferred to the emergency room for further assessment. Workup and evaluation emergency room demonstrated patient be hemodynamically stable and without fever. Routine blood tests were significant for anemia as well as an increased BUN and creatinine above her baseline. Her urinalysis was highly suggestive of urinary tract infection with 3+ leukocyte esterase, greater than 100 white blood cells, and 2+ bacteria. Her chest x-ray was limited due to rotation but was somewhat concerning for a right mid/lower lung infiltrate or atelectasis. Subsequent CT scan of the head abdomen pelvis did not demonstrate any other acute findings. In the emergency room, sj
--- NOTE | 2022-12-08 10:16 | ECG_ITS ---
Measurements Intervals [place] Rate: 74 P: 59 WV: 240 QRS: 71 QRSD: 91 T: 87 QT: 358 QTc: 399 Interpretive Statements SINUS RHYTHM WITH FIRST DEGREE AV BLOCK BORDERLINE ST-T WAVE ABNORMALITY- INF/HIGH LAT LEADS BASELINE WANDER- I, II, AVR, AVF, V1 BORDERLINE ECG COMPARED TO ECG 12/06/2022 23:45:33 NO SIGNIFICANT CHANGES Electronically Signed On 12-08-2022 16:16:39 CDT by Yevgeniy Dong D.O.
[2022-12-08] MEDS: SENNOSIDES 8.6 MG TABLET 17.2 MG PO (12:35)
[2022-12-08] MEDS: DOCUSATE SODIUM 100 MG CAPSULE PO (12:35)
[2022-12-08 13:16] LABS: Basophils Absolute Auto 0.1 K/mm3 (0.0-0.1); Basophils Percent Auto 0.5 % (0.2-1.2); Eosinophils Absolute Auto 0.5 K/mm3 (0-0.3); Eosinophils Percent Auto 4.3 % (0-4.4); Hematocrit 29.1 % (37.0-47.0); Hemoglobin 8.6 g/dL (12.0-15.0); Immature Granulocyte Absolute 0.05 K/mm3 (0.00-0.031); Immature Granulocyte Percent A 0.5 % (0-0.5); Lymphocytes Absolute Auto 1.64 K/mm3 (0.9-3.2); Lymphocytes Percent Auto 15.8 % (18.3-44.2); Mean Corpuscular HGB Conc 29.6 g/dl (32-36); Mean Corpuscular Hemoglobin 30.5 pg (26-34); Mean Corpuscular Volume 103.2 fl (80-100); Mean Platelet Volume 12.4 fl (7.4-10.4); Monocytes Absolute Auto 1.3 K/mm3 (0.1-0.6); Monocytes Percent Auto 12.4 % (2.6-8.5); Neutrophils Absolute Auto 6.9 K/mm3 (1.3-6.7); Neutrophils Percent Auto 66.5 % (45.5-73.1); Nucleated Red Blood Cells Perc 0.2 % (0.0-0.2); Platelet Count Result 161 k/mm3 (150-375); Red Blood Count 2.82 M/mm3 (4.2-5.4); Red Cell Distribution Width 19.6 % (11.5-14.5); White Blood Count 10.4 K/mm3 (4.5-10.0)
[2022-12-08 13:24] LABS: Glucose Point of Care 115 mg/dl (65-105)
[2022-12-08 13:30] LABS: Alanine Aminotransferase 36 U/L (6-35); Albumin Level 2.9 g/dL (3.5-5.1); Alkaline Phosphatase 140 U/L (38-126); Anion Gap 5 mmol/L (8-16); Aspartate Amino Transferase 57 U/L (14-36); Bilirubin,Total 0.7 mg/dL (0.2-1.3); Blood Urea Nitrogen 58 mg/dL (7-17); Calcium 8.4 mg/dL (8.4-10.2); Carbon Dioxide 29 mmol/L (22-30); Chloride 109 mmol/L (98-107); Estimated CRCL calculation 33 ml/min; Estimated Glomerular Filt Rate 31; Glucose 114 mg/dL (65-110); Sodium 143 mmol/L (137-145)
[2022-12-08 16:34] LABS: Glucose Point of Care 166 mg/dl (65-105)
[2022-12-08] MEDS: hydrOXYzine HCL 25 MG TABLET PO (17:29)
[2022-12-08 18:26] LABS: IFOB Positive Control Positive; Immunochemical Fecal Occult Bl Positive (N)
[2022-12-08] MEDS: IPRATROPIUM BR 0.02% INH SOLN 0.5 MG/2.5 ML VIAL INHALATION (19:35)
[2022-12-08 19:57] LABS: Glucose Point of Care 144 mg/dl (65-105)
[2022-12-08] MEDS: VENLAFAXINE HCL 25 MG TABLET 50 MG PO (21:27)
[2022-12-09] VITALS (14 sets, daily range): BP systolic 102–133; BP diastolic 57–64; PULSE 64–83; RESP 18–22; TEMP 36.3–36.7; O2SAT 94–100
[2022-12-09] MEDS: IPRATROPIUM BR 0.02% INH SOLN 0.5 MG/2.5 ML VIAL INHALATION ×3 (02:36→19:49)
[2022-12-09] MEDS: LEVOTHYROXINE SODIUM 150 MCG TABLET PO (05:51)
[2022-12-09] MEDS: CENTRAL LINE FLUSH 10 ML IV PUSH ×3 (05:51→20:32)
[2022-12-09 06:12] LABS: Basophils Absolute Auto 0.1 K/mm3 (0.0-0.1); Basophils Percent Auto 0.5 % (0.2-1.2); Eosinophils Absolute Auto 0.5 K/mm3 (0-0.3); Eosinophils Percent Auto 5.6 % (0-4.4); Hematocrit 27.8 % (37.0-47.0); Hemoglobin 8.3 g/dL (12.0-15.0); Immature Granulocyte Absolute 0.04 K/mm3 (0.00-0.031); Immature Granulocyte Percent A 0.4 % (0-0.5); Lymphocytes Absolute Auto 1.83 K/mm3 (0.9-3.2); Lymphocytes Percent Auto 19.2 % (18.3-44.2); Mean Corpuscular HGB Conc 29.9 g/dl (32-36); Mean Corpuscular Volume 103.7 fl (80-100); Mean Platelet Volume 11.6 fl (7.4-10.4); Monocytes Absolute Auto 1.3 K/mm3 (0.1-0.6); Monocytes Percent Auto 13.6 % (2.6-8.5); Neutrophils Absolute Auto 5.8 K/mm3 (1.3-6.7); Neutrophils Percent Auto 60.7 % (45.5-73.1); Platelet Count Result 150 k/mm3 (150-375); Red Blood Count 2.68 M/mm3 (4.2-5.4); Red Cell Distribution Width 18.7 % (11.5-14.5); White Blood Count 9.5 K/mm3 (4.5-10.0)
[2022-12-09 06:23] LABS: Alanine Aminotransferase 33 U/L (6-35); Albumin Level 2.8 g/dL (3.5-5.1); Alkaline Phosphatase 131 U/L (38-126); Anion Gap 7 mmol/L (8-16); Aspartate Amino Transferase 54 U/L (14-36); Bilirubin,Total 0.6 mg/dL (0.2-1.3); Blood Urea Nitrogen 52 mg/dL (7-17); Calcium 8.5 mg/dL (8.4-10.2); Carbon Dioxide 28 mmol/L (22-30); Chloride 106 mmol/L (98-107); Estimated CRCL calculation 33 ml/min; Estimated Glomerular Filt Rate 31; Glucose 130 mg/dL (65-110); Potassium 4.1 mmol/L (3.4-5.0); Sodium 141 mmol/L (137-145)
[2022-12-09] MEDS: polyethylene glycoL 3350 17 GM POWD.PACK PO (09:36)
[2022-12-09] MEDS: SACCHAROMYCES BOULARDII 250 MG CAPSULE PO ×2 (09:36→16:32)
[2022-12-09] MEDS: hydrOXYzine HCL 25 MG TABLET PO ×2 (09:36→15:26)
[2022-12-09] MEDS: LIOTHYRONINE SODIUM 5 MCG TABLET PO (09:36)
[2022-12-09] MEDS: VENLAFAXINE HCL 75 MG TABLET PO (09:36)
[2022-12-09] MEDS: PANTOPRAZOLE 40 MG TABLET PO (09:36)
[2022-12-09] MEDS: DICYCLOMINE HCL 10 MG CAPSULE PO ×2 (09:36→20:22)
[2022-12-09] MEDS: FERROUS SULFATE 325 MG TABLET DR PO (09:36)
[2022-12-09] MEDS: PREGABALIN (*CRX) 75 MG CAPSULE 150 MG PO ×2 (09:36→16:32)
[2022-12-09] MEDS: AMIODARONE HCL 200 MG TABLET PO (09:36)
[2022-12-09] MEDS: LORATADINE 10 MG TABLET PO (09:37)
[2022-12-09] MEDS: levETIRAcetam 250 MG TABLET PO ×2 (09:37→16:32)
[2022-12-09] MEDS: CYANOCOBALAMIN 1,000 MCG TABLET 1000 MCG PO (09:37)
[2022-12-09] MEDS: MULTIVITAMINS THERAPEUTIC TAB (*BKC) 1 TABLET PO (09:37)
[2022-12-09] MEDS: TOLNAFTATE 1% POWDER 45 GM BTL 1 APPLIC TOPICAL ×2 (09:37→23:56)
--- NOTE | 2022-12-09 09:45 | PM.IMPN ---
Progress Note: A&P Assessment and Plan (1) Encephalopathy: Code(s): G93.40 - Encephalopathy, unspecified Status: Acute Assessment and Plan: She reportedly had seizure activity the last evening and initially she was most likely postictal. She remains confused however and I suspect this is related to worsening renal function and uremia. Urine is also abnormal, concerning for UTI. Stroke seems less likely. Continue neurologic checks and close monitoring. 12/08: TSH quite elevated, suspect non compliance with levothyroxine, monitor in 4-6 weeks after taking current dose daily (2) Acute on chronic kidney failure: Code(s): N17.9 - Acute kidney failure, unspecified; N18.9 - Chronic kidney disease, unspecified Status: Acute Assessment and Plan: BUN and creatinine are elevated from baseline. She looks a bit dry on exam at this time however has not had any oral intake since last evening. Johnson catheter yielded over 700 cc of urine upon insertion and her renal function has also improved with IV fluids. Continue cautious IV fluid rehydration with close monitoring of volume status. Avoid nephrotoxic agents. Nephrology consulted given concerns for possible calciphylaxis. 12/08: Much improved with IV fluids, continue to monitor with fluid resuscitation 12/09: mildly improved, cont current management, monitor closely (3) Urinary tract infection: Code(s): N39.0 - Urinary tract infection, site not specified Status: Acute Assessment and Plan: Abnormal UA, Rocephin started 12/07 Follow-up urine culture 12/09: urine culture negative, d/c abx (4) Macrocytic anemia: Code(s): D53.9 - Nutritional anemia, unspecified Status: Acute Assessment and Plan: Hemoglobin is several g lower than what she typically runs. She has multiple, possible areas of bruising with a differential to include calciphylaxis, though no hematoma is noted and she denies blood loss. Perhaps related to worsening renal function? Iron studies, B12, folate, and stool for occult blood ordered for further evaluation. Monitor H&H closely. 12/09: FOBT+, hgb stable, consult GI pending (5) Seizure disorder: Code(s): G40.909 - Epilepsy, unspecified, not intractable, without status epilepticus Status: Acute Assessment and Plan: Continue levetiracetam. (6) Paroxysmal atrial fibrillation: Code(s): I48.0 - Paroxysmal atrial fibrillation Status: Acute Assessment and Plan: Currently in a sinus rhythm. Continue amiodarone. (7) Insulin dependent type 2 diabetes mellitus: Code(s): E11.9 - Type 2 diabetes mellitus without complications; Z79.4 - family day care worker (current) use of insulin Status: Acute Assessment and Plan: Initiate sliding scale insulin, Accu-Cheks, and hypoglycemic protocol, A1c 6.4 Blood glucose reviewed 12/09 (8) Cellulitis of right leg: Code(s): L03.115 - Cellulitis of right lower limb Status: Acute Assessment and Plan: No signs of cellulitis, suspect this is 2/2 vascular disease, check ABIs Plan DVT prophylaxis with SCDs GI prophylaxis not indicated Code status DNR Subjective Date/time seen: 12/09/22 09:45 Interval history: 77-year-old female with history of stroke, seizures, paroxysmal atrial fibrillation on chronic anticoagulation, coronary artery disease, congestive heart failure, hypertension, insulin-dependent diabetes, chronic kidney disease stage IV, chronic obstructive pulmonary disease, and hypothyroidism who presented to the emergency department via EMS from [facility] for evaluation of altered mental status and suspected seizure and is currently being treated for UTI, FARNAZ, anemia. No overnight events noted. No chest pain or shortness of breath. No nausea, vomiting or diarrhea. No fevers or chills. C/o constipation. Review of Systems Review of Systems: 12 point review of system
--- NOTE | 2022-12-09 10:46 | P.PNNP_ITS ---
Progress Note: A&P Assessment and Plan (1) FARNAZ (acute kidney injury): Code(s): N17.9 - Acute kidney failure, unspecified Status: Acute Assessment and Plan: * improving/back to baseline * presumably secondary to UTI/infection and prerenal factors * imaging without evidence of obstruction * follow trend of labs given improvement in renal function * continue supportive therapy (2) Chronic kidney disease, stage IV (severe): Code(s): N18.4 - Chronic kidney disease, stage 4 (severe) Status: Chronic Assessment and Plan: * baseline creatinine runs around 1.7 - 2.0mg/dl in the last year * presumably secondary to hypertension, diabetes, vascular disease, recurret UT Is, and age-related change * follow with Dr. Luis Enrique Cowan (3) Altered mental status: Code(s): R41.82 - Altered mental status, unspecified Status: Acute Assessment and Plan: * due to acute infection (cellulitis + UTI) versus seizure versus progression of dementia/sundowning(?) * seems a bit better in general * follow mentation (4) Urinary tract infection: Code(s): N39.0 - Urinary tract infection, site not specified Status: Acute Assessment and Plan: * admission UA highly suggestive * follow-up on urine culture * on antibitoics (5) Cellulitis of right leg: Code(s): L03.115 - Cellulitis of right lower limb Status: Acute Assessment and Plan: * apparenty diagnosed at nursing facility * on antibiotics * follow culture data (6) Insulin dependent type 2 diabetes mellitus: Code(s): E11.9 - Type 2 diabetes mellitus without complications; Z79.4 - correction (current) use of insulin Status: Acute Assessment and Plan: * follow accu-cheks * glycemic control per hospitalists Not much else to add -- will continue to follow from a distance. Subjective Date/time seen: 12/09/22 10:44 Interval history: Follow-up for acute kidney injury/acute renal failure on chronic kidney disease. Renal function continues to improve with current therapy/interventions; mentation continues to fluctuate; no apparent distress noted; no issues/events overnight or earlier this morning; son at bedside and we discussed the situation. Exam Narrative: General: elderly somewhat chronically ill-appearing female in NAD Heart: normal S1 and S2; no rub Lungs: clear to auscultation Abdomen: soft, nontender, nondistended, positive bowel sounds Extremities: no cyanosis or clubbing; no edema Skin: diffuse purpuric lesions/rash present Objective Data Vital Signs Vital Signs: Vital Signs Temp Pulse Resp BP Pulse Ox O2 Del Method O2 Flow Rate 12/09/22 10:00 97.4 F L 69 18 133/61 94 12/09/22 08:00 96 Nasal Cannula 4 12/09/22 08:00 64 12/09/22 08:20 96 Nasal Cannula 4 12/09/22 08:00 97.4 F L 68 18 128/57 L 99 12/09/22 08:31 69 18 12/09/22 08:18 73 18 12/09/22 04:00 98.1 F 66 20 102/63 99 12/09/22 04:00 72 12/09/22 02:42 74 20 12/09/22 02:37 71 18 12/09/22 00:00 83 12/08/22 23:09 97.4 F L 74 20 112/51 L 100 12/08/22 20:00 75 12/08/22 20:00 97.7 F 74 22 H 111/45 L 95 12/08/22 19:46 78 20
--- NOTE | 2022-12-09 10:46 | PM.PNNEP ---
Progress Note: A&P Assessment and Plan (1) FARNAZ (acute kidney injury): Code(s): N17.9 - Acute kidney failure, unspecified Status: Acute Assessment and Plan: improving/back to baseline presumably secondary to UTI/infection and prerenal factors imaging without evidence of obstruction follow trend of labs given improvement in renal function continue supportive therapy (2) Chronic kidney disease, stage IV (severe): Code(s): N18.4 - Chronic kidney disease, stage 4 (severe) Status: Chronic Assessment and Plan: baseline creatinine runs around 1.7 - 2.0mg/dl in the last year presumably secondary to hypertension, diabetes, vascular disease, recurret UTIs, and age-related change follow with Dr. Luis Enrique Cowan (3) Altered mental status: Code(s): R41.82 - Altered mental status, unspecified Status: Acute Assessment and Plan: due to acute infection (cellulitis + UTI) versus seizure versus progression of dementia/sundowning(?) seems a bit better in general follow mentation (4) Urinary tract infection: Code(s): N39.0 - Urinary tract infection, site not specified Status: Acute Assessment and Plan: admission UA highly suggestive follow-up on urine culture on antibitoics (5) Cellulitis of right leg: Code(s): L03.115 - Cellulitis of right lower limb Status: Acute Assessment and Plan: apparenty diagnosed at nursing facility on antibiotics follow culture data (6) Insulin dependent type 2 diabetes mellitus: Code(s): E11.9 - Type 2 diabetes mellitus without complications; Z79.4 - terminal supervisor (current) use of insulin Status: Acute Assessment and Plan: follow accu-cheks glycemic control per hospitalists Not much else to add -- will continue to follow from a distance. Subjective Date/time seen: 12/09/22 10:44 Interval history: Follow-up for acute kidney injury/acute renal failure on chronic kidney disease. Renal function continues to improve with current therapy/interventions; mentation continues to fluctuate; no apparent distress noted; no issues/events overnight or earlier this morning; son at bedside and we discussed the situation. Exam Narrative: General: elderly somewhat chronically ill-appearing female in NAD Heart: normal S1 and S2; no rub Lungs: clear to auscultation Abdomen: soft, nontender, nondistended, positive bowel sounds Extremities: no cyanosis or clubbing; no edema Skin: diffuse purpuric lesions/rash present Objective Data Vital Signs Vital Signs: Vital Signs Temp Pulse Resp BP Pulse Ox O2 Del Method O2 Flow Rate 12/09/22 10:00 97.4 F L 69 18 133/61 94 12/09/22 08:00 96 Nasal Cannula 4 12/09/22 08:00 64 12/09/22 08:20 96 Nasal Cannula 4 12/09/22 08:00 97.4 F L 68 18 128/57 L 99 12/09/22 08:31 69 18 12/09/22 08:18 73 18 12/09/22 04:00 98.1 F 66 20 102/63 99 12/09/22 04:00 72 12/09/22 02:42 74 20 12/09/22 02:37 71 18 12/09/22 00:00 83 12/08/22 23:09 97.4 F L 74 20 112/51 L 100 12/08/22 20:00 75 12/08/22 20:00 97.7 F 74 22 H 111/45 L 95 12/08/22 19:46 78 20 12/08/22 19:35 74 20 12/08/22 19:35 74 20 94 Nasal Cannula 4 12/08/22 16:00 96.9 F L 72 20 151/82 H 95 12/08/22 16:00 98 Nasal Cannula 4 12/08/22 16:00 73 12/08/22 14:00 70 Intake/Output Intake/Output: Intake & Output 12/06/22 12/07/22 12/08/22 12/09/22 23:59 23:59 23:59 23:59 Intake Total 2500 615 880 Output Total 2150 1850 400 Balance 350 -7092 480 Meds/Results Medications: Active Medications Generic Name Dose Route Start Last Admin Trade Name Freq PRN Reason Stop Dose Admin Albuterol 2.5 mg 12/07/22 14:51 Albuterol Sulfate Neb 2.5 Mg/3 Ml Inh INHALATION QID PRN Shortness Of Breath
[2022-12-09 12:03] LABS: Glucose Point of Care 231 mg/dl (65-105)
[2022-12-09] MEDS: SENNOSIDES 8.6 MG TABLET 17.2 MG PO (12:03)
[2022-12-09] MEDS: INSULIN ASPART (*BKC) 100 UNITS/ML SUB-Q (12:03)
[2022-12-09] MEDS: DOCUSATE SODIUM 100 MG CAPSULE PO (12:03)
[2022-12-09] MEDS: LACTULOSE 20 GM/30 ML UDC 30 GM PO (12:13)
--- NOTE | 2022-12-09 12:40 | WPDGICN ---
Assessment and Plan Assessment and plan (1) GI (gastrointestinal bleed): Qualifiers: GI bleed type/associated pathology: unspecified gastrointestinal hemorrhage type Qualified Code(s): K92.2 - Gastrointestinal hemorrhage, unspecified Code(s): K92.2 - Gastrointestinal hemorrhage, unspecified Status: Acute Assessment and Plan: She has had no overt bleeding, however occult blood test was positive. (2) Anemia: Qualifiers: Anemia type: unspecified type Qualified Code(s): D64.9 - Anemia, unspecified Code(s): D64.9 - Anemia, unspecified Status: Acute Assessment and Plan: She received 1 unit of blood with her hemoglobin coming up to 8.3. She has a mature chronic anemia due to chronic kidney disease. She also has macrocytic indices and she could have a nutritional or hematopoietic problem as well (3) Insulin dependent type 2 diabetes mellitus: Code(s): E11.9 - Type 2 diabetes mellitus without complications; Z79.4 - intermediate (current) use of insulin Status: Acute (4) Chronic kidney disease, stage IV (severe): Code(s): N18.4 - Chronic kidney disease, stage 4 (severe) Status: Chronic Assessment and Plan: She has been followed by Dr. Ezra gleason in this hospitalization. It does not seem that she has regular follow ups with a treating and pumping supervisor as an outpatient. (5) Paroxysmal atrial fibrillation: Code(s): I48.0 - Paroxysmal atrial fibrillation Status: Acute Assessment and Plan: She has been on Xarelto for this condition. Xarelto has been held pending GI workup Plan EGD and colonoscopy to be done on . The patient has done states that she is constipated now she would like some lactulose. She also said that she would not be able to drink the prep in a short period of time as is normally done. I told her that we will let her take her time and drink it tomorrow throughout the day. GI Consult Note Consult date/time: 12/09/22 12:41 HPI: Marleen Perla is a 77 year old female was admitted with altered mental status. Was felt that she may have had a seizure and was in a postictal state. She is chronically debilitated she lives at [place] she transfers with a [facility]. She is however alert. She states that she does not have any new gastrointestinal symptoms but is becoming constipated because she has not received her usual laxatives for couple of days. Her son said she usually does well with lactulose. She also was found to be markedly anemic with a hemoglobin of 7.4. After 1 unit of blood is up to 8.3. Her MCV is normal. She had a stool Hemoccult which was positive. She does not see blood her stools. She has had a colonoscopy in the past with removal of polyps but it has been several years she denies heartburn, dysphagia, nausea vomiting, and she is not having any abdominal pain. She denies using NSAIDs. She is on Xarelto for atrial fibrillation. Review of Systems Review of Systems: All systems reviewed & are unremarkable except as noted in HPI and below PMFSH Past Medical History Medical History Cerebrovascular accident Chronic anticoagulation Chronic kidney disease Chronic obstructive pulmonary disease Coronary artery disease Diverticulitis Hyperlipidemia Hypertension Hypothyroidism Insulin dependent type 2 diabetes mellitus Paroxysmal atrial fibrillation Seizure disorder Urinary tract infection Surgical History Surgical History History of ankle surgery ORIF left ankle fracture. History of appendectomy History of cholecystectomy History of colonoscopy with polypectomy History of coronary artery stent placement History of thyroidectomy Family History Family History Other Unknown family medical history Social History Social History (Rev
[2022-12-09] MEDS: MAGNESIUM CITRATE 300 ML BTL 150 ML PO (16:32)
[2022-12-09 16:48] LABS: Glucose Point of Care 171 mg/dl (65-105)
[2022-12-09 20:15] LABS: Glucose Point of Care 182 mg/dl (65-105)
[2022-12-09] MEDS: VENLAFAXINE HCL 25 MG TABLET 50 MG PO (20:22)
[2022-12-09] MEDS: INSULIN GLARGINE (*BKC) 100 UNITS/ML 40 UNITS SUB-Q (20:23)
[2022-12-10] VITALS (20 sets, daily range): BP systolic 104–128; BP diastolic 50–65; PULSE 67–88; RESP 18–23; TEMP 35.7–37.2; O2SAT 93–100
[2022-12-10] MEDS: IPRATROPIUM BR 0.02% INH SOLN 0.5 MG/2.5 ML VIAL INHALATION ×4 (01:35→20:53)
[2022-12-10 04:35] LABS: Basophils Absolute Auto 0.1 K/mm3 (0.0-0.1); Basophils Percent Auto 0.6 % (0.2-1.2); Eosinophils Absolute Auto 0.7 K/mm3 (0-0.3); Eosinophils Percent Auto 8.4 % (0-4.4); Hematocrit 26.6 % (37.0-47.0); Immature Granulocyte Absolute 0.04 K/mm3 (0.00-0.031); Immature Granulocyte Percent A 0.5 % (0-0.5); Lymphocytes Absolute Auto 1.73 K/mm3 (0.9-3.2); Mean Corpuscular HGB Conc 30.1 g/dl (32-36); Mean Corpuscular Hemoglobin 30.4 pg (26-34); Mean Corpuscular Volume 101.1 fl (80-100); Mean Platelet Volume 12.3 fl (7.4-10.4); Monocytes Absolute Auto 1.1 K/mm3 (0.1-0.6); Monocytes Percent Auto 13.4 % (2.6-8.5); Neutrophils Absolute Auto 4.6 K/mm3 (1.3-6.7); Neutrophils Percent Auto 56.1 % (45.5-73.1); Platelet Count Result 138 k/mm3 (150-375); Red Blood Count 2.63 M/mm3 (4.2-5.4); Red Cell Distribution Width 17.1 % (11.5-14.5); White Blood Count 8.2 K/mm3 (4.5-10.0)
[2022-12-10 04:44] LABS: Alanine Aminotransferase 34 U/L (6-35); Albumin Level 2.8 g/dL (3.5-5.1); Alkaline Phosphatase 148 U/L (38-126); Anion Gap 2 mmol/L (8-16); Aspartate Amino Transferase 47 U/L (14-36); Bilirubin,Total 0.6 mg/dL (0.2-1.3); Blood Urea Nitrogen 49 mg/dL (7-17); Calcium 8.3 mg/dL (8.4-10.2); Carbon Dioxide 30 mmol/L (22-30); Chloride 106 mmol/L (98-107); Estimated CRCL calculation 33 ml/min; Estimated Glomerular Filt Rate 31; Glucose 143 mg/dL (65-110); Sodium 138 mmol/L (137-145)
[2022-12-10] MEDS: LEVOTHYROXINE SODIUM 150 MCG TABLET PO (06:14)
[2022-12-10] MEDS: CENTRAL LINE FLUSH 10 ML IV PUSH ×2 (06:15→13:02)
[2022-12-10] MEDS: hydrOXYzine HCL 25 MG TABLET PO ×3 (06:19→17:09)
[2022-12-10 08:18] LABS: Glucose Point of Care 131 mg/dl (65-105)
[2022-12-10] MEDS: LORATADINE 10 MG TABLET PO (10:27)
[2022-12-10] MEDS: PREGABALIN (*CRX) 75 MG CAPSULE 150 MG PO ×2 (10:27→17:08)
[2022-12-10] MEDS: SACCHAROMYCES BOULARDII 250 MG CAPSULE PO ×2 (10:27→17:08)
[2022-12-10] MEDS: AMIODARONE HCL 200 MG TABLET PO (10:27)
[2022-12-10] MEDS: levETIRAcetam 250 MG TABLET PO ×2 (10:29→17:08)
[2022-12-10] MEDS: CYANOCOBALAMIN 1,000 MCG TABLET 1000 MCG PO (10:29)
[2022-12-10] MEDS: DICYCLOMINE HCL 10 MG CAPSULE PO ×2 (10:29→21:45)
[2022-12-10] MEDS: MULTIVITAMINS THERAPEUTIC TAB (*BKC) 1 TABLET PO (10:29)
[2022-12-10] MEDS: PANTOPRAZOLE 40 MG TABLET PO (10:29)
[2022-12-10] MEDS: VENLAFAXINE HCL 75 MG TABLET PO (10:29)
[2022-12-10] MEDS: LIOTHYRONINE SODIUM 5 MCG TABLET PO (10:39)
--- NOTE | 2022-12-10 11:07 | PM.IMPN ---
Progress Note: A&P Assessment and Plan (1) Encephalopathy: Code(s): G93.40 - Encephalopathy, unspecified Status: Acute Assessment and Plan: She reportedly had seizure activity and initially she was most likely postictal. She remains confused however and I suspect this is related to worsening renal function and uremia. Urine is also abnormal, concerning for UTI but UCx negative. Stroke seems less likely. Continue neurologic checks and close monitoring. Mental status much better. Remains on Keppra. TSH quite elevated. She is at [place] and receiving medications appropriately. Will advance Synthroid and monitor in 4-6 weeks after advancing daily dose. (2) Acute on chronic kidney failure: Code(s): N17.9 - Acute kidney failure, unspecified; N18.9 - Chronic kidney disease, unspecified Status: Acute Assessment and Plan: BUN and creatinine are elevated from baseline. She looks a bit dry on exam at this time however has not had any oral intake since last evening. Johnson catheter yielded over 700 cc of urine upon insertion and her renal function has also improved with IV fluids. Continue cautious IV fluid rehydration with close monitoring of volume status. Avoid nephrotoxic agents. Nephrology consulted given concerns for possible calciphylaxis. 12/08: Much improved with IV fluids, continue to monitor with fluid resuscitation 12/09: mildly improved, cont current management, monitor closely BUN 49 and Cr 1.6 today and at baseline (1.7-2.0). Off IV fluids. Follow (3) Macrocytic anemia: Code(s): D53.9 - Nutritional anemia, unspecified Status: Acute Assessment and Plan: Hemoglobin is several g lower than what she typically runs. Hgb was 12.4 in August. She has multiple, possible areas of bruising with a differential to include calciphylaxis, though no hematoma is noted and she denies blood loss. Perhaps related to worsening renal function? Iron studies, B12, folate, and stool for occult blood ordered for further evaluation. Monitor H&H closely. Iron deficiency with TSat 7%. B12/folate normal. FOBT+, Received 1U PRBC on 12/07. hgb stable since in the 7-8 range, consulted GI with plans for endoscopy tomorrow after slow prep. (4) Seizure disorder: Code(s): G40.909 - Epilepsy, unspecified, not intractable, without status epilepticus Status: Acute Assessment and Plan: As above. Continue levetiracetam. (5) Paroxysmal atrial fibrillation: Code(s): I48.0 - Paroxysmal atrial fibrillation Status: Acute Assessment and Plan: Remains in a sinus rhythm. Continue amiodarone. (6) Insulin dependent type 2 diabetes mellitus: Code(s): E11.9 - Type 2 diabetes mellitus without complications; Z79.4 - custodial (current) use of insulin Status: Acute Assessment and Plan: A1c 6.4. The patient's blood glucose was reviewed on 12/10 Glucose remains well controlled. Continue AccuCheks covering with sliding scale. Hypoglycemia protocol available as needed. Continue to monitor (7) Cellulitis of right leg: Code(s): L03.115 - Cellulitis of right lower limb Status: Acute Assessment and Plan: Suspect cellulits with edema, erythema and warmth. WBC normal. Check doppler. Resume abx (8) Urinary tract infection: Code(s): N39.0 - Urinary tract infection, site not specified Status: Acute Assessment and Plan: Abnormal UA, Rocephin started 12/07 Follow-up urine culture UTI ruled out (9) Chronic respiratory failure: Code(s): J96.10 - Chronic respiratory failure, unspecified whether with hypoxia or hypercapnia Status: Acute Assessment and Plan: Per son at bedside, patient uses 2 L O2 nasal cannula chronically at the facility. She is currently on 4 L. lung exam is relatively benign with good air exchange. Wean oxygen as tolerated. Check check x-ray (10) Urine retention: Code(s): R33.9 - Re
[2022-12-10] MEDS: INSULIN GLARGINE (*BKC) 100 UNITS/ML 40 UNITS SUB-Q ×2 (11:12→21:46)
[2022-12-10] MEDS: TOLNAFTATE 1% POWDER 45 GM BTL 1 APPLIC TOPICAL ×2 (11:12→21:45)
[2022-12-10 11:46] LABS: Glucose Point of Care 153 mg/dl (65-105)
[2022-12-10] MEDS: SENNOSIDES 8.6 MG TABLET 17.2 MG PO (13:02)
[2022-12-10] MEDS: polyethylene glycoL 3350 238 GM BOTTLE PO (13:02)
[2022-12-10] MEDS: BISACODYL 5 MG TABLET EC 10 MG PO ×3 (13:02→21:45)
[2022-12-10] MEDS: DOCUSATE SODIUM 100 MG CAPSULE PO (13:02)
[2022-12-10] MEDS: ALBUTEROL SULFATE NEB 2.5 MG/3 ML INH INHALATION (14:23)
[2022-12-10 17:03] LABS: Glucose Point of Care 253 mg/dl (65-105)
[2022-12-10] MEDS: INSULIN ASPART (*BKC) 100 UNITS/ML SUB-Q ×2 (17:06→21:46)
[2022-12-10 18:43] LABS: Partial Thromboplastin Time 44.7 SECONDS (22.3-36.8)
[2022-12-10 20:37] LABS: Glucose Point of Care 225 mg/dl (65-105)
[2022-12-10] MEDS: VENLAFAXINE HCL 25 MG TABLET 50 MG PO (21:45)
[2022-12-10] MEDS: ALTEPLASE 2 MG VIAL (CATHFLO) IV PUSH ×2 (21:50→21:51)
[2022-12-11] VITALS (16 sets, daily range): BP systolic 111–130; BP diastolic 53–60; PULSE 60–85; RESP 14–20; TEMP 35.6–36.2; O2SAT 96–100
[2022-12-11] MEDS: ALTEPLASE 2 MG VIAL (CATHFLO) IV PUSH ×2 (01:42)
[2022-12-11] MEDS: IPRATROPIUM BR 0.02% INH SOLN 0.5 MG/2.5 ML VIAL INHALATION ×3 (02:21→21:06)
[2022-12-11] MEDS: DEXTROSE 50% 25 GM/50 ML SYRINGE IV PUSH (05:33)
[2022-12-11 05:50] LABS: Glucose Point of Care 111 mg/dl (65-105)
[2022-12-11 05:50] LABS: Glucose Point of Care 54 mg/dl (65-105)
[2022-12-11] MEDS: DEXTROSE 5%/0.9% SOD CHL 1,000 ML 85 ML IV CONT (05:57)
--- NOTE | 2022-12-11 06:08 | PC.NURSE ---
Pt did not finish bowel prep overnight and the pt's stool was not clear. Dr. Sunshine, who will be performing this pt's EGD and colonoscopy later today, was informed. Dr. Sunshine ordered 2 Ducolax tablets and 10 ounces of magnesium citrate.
[2022-12-11] MEDS: MAGNESIUM CITRATE 300 ML BTL PO (06:25)
[2022-12-11 06:29] LABS: Glucose Point of Care 82 mg/dl (65-105)
[2022-12-11 06:33] LABS: Basophils Percent Auto 0.5 % (0.2-1.2); Eosinophils Absolute Auto 0.2 K/mm3 (0-0.3); Hematocrit 26.2 % (37.0-47.0); Hemoglobin 7.8 g/dL (12.0-15.0); Immature Granulocyte Absolute 0.05 K/mm3 (0.00-0.031); Immature Granulocyte Percent A 0.7 % (0-0.5); Lymphocytes Absolute Auto 0.36 K/mm3 (0.9-3.2); Lymphocytes Percent Auto 4.8 % (18.3-44.2); Mean Corpuscular HGB Conc 29.8 g/dl (32-36); Mean Corpuscular Hemoglobin 30.8 pg (26-34); Mean Corpuscular Volume 103.6 fl (80-100); Mean Platelet Volume 12.4 fl (7.4-10.4); Monocytes Absolute Auto 0.8 K/mm3 (0.1-0.6); Monocytes Percent Auto 10.9 % (2.6-8.5); Neutrophils Absolute Auto 6.1 K/mm3 (1.3-6.7); Neutrophils Percent Auto 81.1 % (45.5-73.1); Platelet Count Result 143 k/mm3 (150-375); Red Blood Count 2.53 M/mm3 (4.2-5.4); Red Cell Distribution Width 16.4 % (11.5-14.5); White Blood Count 7.5 K/mm3 (4.5-10.0)
[2022-12-11 07:00] LABS: Alanine Aminotransferase 38 U/L (6-35); Albumin Level 2.7 g/dL (3.5-5.1); Alkaline Phosphatase 159 U/L (38-126); Anion Gap 4 mmol/L (8-16); Aspartate Amino Transferase 71 U/L (14-36); Bilirubin,Total 0.6 mg/dL (0.2-1.3); Blood Urea Nitrogen 52 mg/dL (7-17); Calcium 7.9 mg/dL (8.4-10.2); Carbon Dioxide 26 mmol/L (22-30); Chloride 102 mmol/L (98-107); Estimated CRCL calculation 36 ml/min; Estimated Glomerular Filt Rate 34; Glucose 85 mg/dL (65-110); Magnesium 2.6 mg/dL (1.6-2.3); Phosphorus 4.1 mg/dL (2.5-4.5); Potassium 4.1 mmol/L (3.4-5.0); Sodium 132 mmol/L (137-145)
--- NOTE | 2022-12-11 07:21 | PM.IMPN ---
Progress Note: A&P Assessment and Plan (1) Encephalopathy: Code(s): G93.40 - Encephalopathy, unspecified Status: Acute Assessment and Plan: She reportedly had seizure activity and initially she was most likely postictal. She remains confused however and I suspect this is related to worsening renal function and uremia. Urine is also abnormal, concerning for UTI but UCx negative. Stroke seems less likely. Continue neurologic checks and close monitoring. Remains on Keppra. TSH quite elevated. She is at [place] and receiving medications appropriately. We advanced Synthroid and monitor in 4-6 weeks after advancing daily dose. Mental status much worse today. Post-ictal? Glucose recheck is okay at 91. Occult CVA (hx of AFib)? CO2 narcosis? She appears to be having intermittent episodes of becoming poorly responsive. Check stat CT brain and ABG. Suppotive care. Neurochecks. Neuro consult. Wean O2 to her baseline 2L. (2) Acute on chronic kidney failure: Code(s): N17.9 - Acute kidney failure, unspecified; N18.9 - Chronic kidney disease, unspecified Status: Acute Assessment and Plan: BUN and creatinine are elevated from baseline. She looks a bit dry on exam at this time however has not had any oral intake since last evening. Johnson catheter yielded over 700 cc of urine upon insertion and her renal function has also improved with IV fluids. Continue cautious IV fluid rehydration with close monitoring of volume status. Avoid nephrotoxic agents. Nephrology consulted given concerns for possible calciphylaxis. 12/08: Much improved with IV fluids, continue to monitor with fluid resuscitation 12/09: mildly improved, cont current management, monitor closely BUN 529 and Cr 1.5 today and at baseline (1.7-2.0). Follow (3) Macrocytic anemia: Code(s): D53.9 - Nutritional anemia, unspecified Status: Acute Assessment and Plan: Hemoglobin is several g lower than what she typically runs. Hgb was 12.4 in August. She has multiple, possible areas of bruising with a differential to include calciphylaxis, though no hematoma is noted and she denies blood loss. Perhaps related to worsening renal function? Iron studies, B12, folate, and stool for occult blood ordered for further evaluation. Monitor H&H closely. Iron deficiency with TSat 7%. B12/folate normal. FOBT+, Received 1U PRBC on 12/07. hgb stable since in the 7-8 range. GI consulted with plans for endoscopy today but on hold now. HH pending today. (4) Seizure disorder: Code(s): G40.909 - Epilepsy, unspecified, not intractable, without status epilepticus Status: Acute Assessment and Plan: As above. Continue levetiracetam. May need to adjust medications. (5) Paroxysmal atrial fibrillation: Code(s): I48.0 - Paroxysmal atrial fibrillation Status: Acute Assessment and Plan: EKG on admission showing NSR. Remains in a sinus rhythm by tele. Continue amiodarone. Xarelto on hold. Resume when okay with GI. (6) Insulin dependent type 2 diabetes mellitus: Code(s): E11.9 - Type 2 diabetes mellitus without complications; Z79.4 - snf (current) use of insulin Status: Acute Assessment and Plan: A1c 6.4. The patient's blood glucose was reviewed on 12/11 Glucose dropped to 54 this morning so IVF with dextrose ordered. Continue AccuCheks covering with sliding scale. Hypoglycemia protocol available as needed. Hold Lantus. Continue to monitor (7) Cellulitis of right leg: Code(s): L03.115 - Cellulitis of right lower limb Status: Acute Assessment and Plan: Suspect cellulits with edema, erythema and warmth to the right calf. Doppler negative for DVT. WBC pending. Continue abx. (8) Chronic respiratory failure: Code(s): J96.10 - Chronic respiratory failure, unspecified whether with hypoxia or hypercapnia Status: Acute Assessment and Plan: Per son at bedside, patient uses 2
[2022-12-11 07:26] LABS: Glucose Point of Care 93 mg/dl (65-105)
[2022-12-11 07:40] LABS: Alveolar/Arterial O2 Gradient 43.7 mmHg; Base Excess ABG 0.9 mEq/l (+/-2.0); Fractional Inspired Oxygen 36 %; Oxygen Content ABG 16.2 %vol (16.0-22.0); Oxygen Saturation ABG 98.9 % (95.0-100.0); Oxyhemoglobin 97.6 % THb (90.0-100.0); PCO2 ABG 49.8 mmHg (35.0-45.0); PO2 ABG 155.2 mmHg (80.0-100.0); PO2 FiO2 Ratio Arterial Blood 4.31 %; Total Hemoglobin 11.6 g/dL (12.0-18.0); pH ABG 7.352 (7.350-7.450)
[2022-12-11 07:43] LABS: Anisocytosis 2+ (NORMAL); Crenated RBC 1+ (NORMAL); Hypochromasia 3+ (NORMAL); Platelet Estimate Adequate (Adequate); Schistocytes None Seen (NORMAL)
[2022-12-11 07:45] LABS: Device NASAL CANNULA; Modified Allen's Test Pass; Site Drawn LEFT RADIAL
--- NOTE | 2022-12-11 09:44 | WPDNEURCNPN ---
Assessment and Plan Assessment and plan (1) Altered mental status: Code(s): R41.82 - Altered mental status, unspecified Status: Acute (2) Seizure disorder: Code(s): G40.909 - Epilepsy, unspecified, not intractable, without status epilepticus Status: Acute (3) Urinary tract infection: Code(s): N39.0 - Urinary tract infection, site not specified Status: Acute (4) Acute on chronic kidney failure: Code(s): N17.9 - Acute kidney failure, unspecified; N18.9 - Chronic kidney disease, unspecified Status: Acute (5) Hypothyroidism: Code(s): E03.9 - Hypothyroidism, unspecified Status: Acute Plan Marleen Perla is a 77 year old female with a history of prior stroke, epilepsy, atrial fibrillation, chronic kidney disease, COPD, CAD, HLD, HTN, DM, hypothyroidism presenting from nursing home facility due to change in mental status. Suspect overall decline in mentation to be due to several factors including uremia, hypothyroidism, and possible infection (cellulitis/UTI?). She has had a couple of transient episodes where she is difficult to rouse, concerning for possible breakthrough seizures. She is currently on subtherapeutic dosing of Keppra for her size, but cannot tolerate higher doses due to sedation. Dose increased to 250mg in AM and 500mg qhs today. - If additional episodes occur despite dose adjustment, will obtain routine EEG tomorrow - If she is truly having breakthrough seizures, we will likely have to switch her to a different anti-seizure medication since she does not tolerate higher dose of Keppra. - She has several risk factors for stroke, but no new deficits noted on exam; consider MRI brain Consult date: 12/11/22 Reason for consult: Episodes of altered mental status HPI: Marleen Perla is a 77 year old female with a history of prior stroke, epilepsy, atrial fibrillation, chronic kidney disease, COPD, CAD, HLD, HTN, DM, hypothyroidism presenting from nursing home facility due to change in mental status. Patient was brought in on 12/07 for reportedly several week history of change in mental status. At baseline she is oriented to self and location only, but on presentation to the ER she was only AOx1. She also has aphasia and coordination issues at baseline, due to prior strokes. Per EMS, she did have a seizure prior to being picked up to go to the hospital. She had a CT head in the ER that did not show any acute abnormalities, but shows generalized volume loss and old strokes in the right parietal, and left parietal/occipital regions. Her UA was suggestive of urinary tract infection. She received a dose of Keppra in the ER and was started on IV antibiotics. She takes Keppra 250mg BID for epilepsy. Her lab work during this admission was also significant for a significantly elevated TSH of 13.2 and elevated BUN 91 (baseline seems to be in the 40s?). Her folate and B12 levels are normal. Her CrCl today is 36, and it seems to hover in the 30s. She was found to be anemic and had positive fecal occult so GI was consulted, and they will be taking her for colonoscopy today. Her Xarelto is being held currently. Son and son's partner at bedside this morning. Patient has an episode last night where it was difficult to get her to respond. She has a similar episode this morning where the staff was having trouble getting her to wake up. They are concerned that she may have had occult seizures preceding those episodes. Keppra was increased today from 250mg BID to 250mg qAM and 500mg qhs. She has not tolerated 500mg BID in the past due to sedation. She had her first stroke about 7 years ago, and has had several other strokes since then per son. EKG from this admission showed SR with 1st degree AV block. Review of Systems Review of Systems: ROS unobtainable: Yes unobtainable due to mental status PMFSH Past Medical History Medical History Cer
[2022-12-11] MEDS: SACCHAROMYCES BOULARDII 250 MG CAPSULE PO ×2 (10:22→18:24)
[2022-12-11] MEDS: PREGABALIN (*CRX) 75 MG CAPSULE 150 MG PO ×2 (10:22→18:24)
[2022-12-11] MEDS: PANTOPRAZOLE 40 MG TABLET PO (10:23)
[2022-12-11] MEDS: CYANOCOBALAMIN 1,000 MCG TABLET 1000 MCG PO (10:23)
[2022-12-11] MEDS: MULTIVITAMINS THERAPEUTIC TAB (*BKC) 1 TABLET PO (10:23)
[2022-12-11] MEDS: DICYCLOMINE HCL 10 MG CAPSULE PO ×2 (10:23→20:23)
[2022-12-11] MEDS: polyethylene glycoL 3350 17 GM POWD.PACK PO (10:23)
[2022-12-11] MEDS: LORATADINE 10 MG TABLET PO (10:23)
[2022-12-11] MEDS: LIOTHYRONINE SODIUM 5 MCG TABLET PO (10:23)
[2022-12-11] MEDS: VENLAFAXINE HCL 75 MG TABLET PO (10:24)
[2022-12-11] MEDS: AMIODARONE HCL 200 MG TABLET PO (10:24)
[2022-12-11] MEDS: TOLNAFTATE 1% POWDER 45 GM BTL 1 APPLIC TOPICAL ×2 (10:24→20:28)
[2022-12-11] MEDS: levETIRAcetam 250 MG TABLET PO (10:28)
[2022-12-11 12:11] LABS: Glucose Point of Care 105 mg/dl (65-105)
[2022-12-11] MEDS: DOCUSATE SODIUM 100 MG CAPSULE PO (12:35)
[2022-12-11] MEDS: SENNOSIDES 8.6 MG TABLET 17.2 MG PO (12:35)
[2022-12-11] MEDS: hydrOXYzine HCL 25 MG TABLET PO (12:35)
[2022-12-11 16:31] LABS: Glucose Point of Care 196 mg/dl (65-105)
[2022-12-11] MEDS: polyethylene glycoL 3350 238 GM BOTTLE 119 GM PO (18:24)
[2022-12-11] MEDS: VENLAFAXINE HCL 25 MG TABLET 50 MG PO (20:23)
[2022-12-11] MEDS: levETIRAcetam 500 MG TABLET PO (20:23)
[2022-12-11] MEDS: INSULIN ASPART (*BKC) 100 UNITS/ML SUB-Q (20:26)
[2022-12-11] MEDS: CENTRAL LINE FLUSH 10 ML IV PUSH (20:32)
[2022-12-11] MEDS: ALBUTEROL SULFATE NEB 2.5 MG/3 ML INH INHALATION (21:07)
[2022-12-11 22:20] LABS: Glucose Point of Care 217 mg/dl (65-105)
[2022-12-12] VITALS (21 sets, daily range): BP systolic 108–153; BP diastolic 58–94; PULSE 63–80; RESP 17–20; TEMP 36.1–36.4; O2SAT 96–100
[2022-12-12] MEDS: IPRATROPIUM BR 0.02% INH SOLN 0.5 MG/2.5 ML VIAL INHALATION ×3 (02:05→21:36)
[2022-12-12] MEDS: DEXTROSE 5%/0.9% SOD CHL 1,000 ML 85 ML IV CONT (06:17)
[2022-12-12 06:51] LABS: Basophils Percent Auto 0.6 % (0.2-1.2); Eosinophils Absolute Auto 0.7 K/mm3 (0-0.3); Hematocrit 26.2 % (37.0-47.0); Immature Granulocyte Absolute 0.02 K/mm3 (0.00-0.031); Immature Granulocyte Percent A 0.4 % (0-0.5); Lymphocytes Absolute Auto 1.03 K/mm3 (0.9-3.2); Lymphocytes Percent Auto 19.9 % (18.3-44.2); Mean Corpuscular HGB Conc 30.5 g/dl (32-36); Mean Corpuscular Hemoglobin 30.4 pg (26-34); Mean Corpuscular Volume 99.6 fl (80-100); Mean Platelet Volume 12.2 fl (7.4-10.4); Monocytes Absolute Auto 0.5 K/mm3 (0.1-0.6); Monocytes Percent Auto 10.3 % (2.6-8.5); Neutrophils Absolute Auto 2.9 K/mm3 (1.3-6.7); Neutrophils Percent Auto 55.8 % (45.5-73.1); Platelet Count Result 145 k/mm3 (150-375); Red Blood Count 2.63 M/mm3 (4.2-5.4); Red Cell Distribution Width 15.9 % (11.5-14.5); White Blood Count 5.2 K/mm3 (4.5-10.0)
[2022-12-12 07:00] LABS: Alanine Aminotransferase 36 U/L (6-35); Albumin Level 2.6 g/dL (3.5-5.1); Alkaline Phosphatase 184 U/L (38-126); Anion Gap 4 mmol/L (8-16); Aspartate Amino Transferase 51 U/L (14-36); Bilirubin,Total 0.4 mg/dL (0.2-1.3); Blood Urea Nitrogen 40 mg/dL (7-17); Calcium 7.7 mg/dL (8.4-10.2); Carbon Dioxide 28 mmol/L (22-30); Chloride 99 mmol/L (98-107); Estimated CRCL calculation 40 ml/min; Estimated Glomerular Filt Rate 37; Glucose 237 mg/dL (65-110); Potassium 3.5 mmol/L (3.4-5.0); Sodium 131 mmol/L (137-145)
[2022-12-12 07:33] LABS: Glucose Point of Care 232 mg/dl (65-105)
--- NOTE | 2022-12-12 11:03 | WPDNEUROLOGY ---
Neurology EEG Report General Information Date of Study: 12/11/22 TEST Routine EEG EEG NUMBER [id number]
--- NOTE | 2022-12-12 11:22 | PC.NURSE ---
Rachel YIN in GI lab notified patient not clear still having brown stools.
[2022-12-12 11:37] LABS: Glucose Point of Care 193 mg/dl (65-105)
--- NOTE | 2022-12-12 12:25 | WPDNEUROPN ---
Progress Note: A&P Assessment and Plan (1) Altered mental status: Code(s): R41.82 - Altered mental status, unspecified Status: Acute (2) Seizure disorder: Code(s): G40.909 - Epilepsy, unspecified, not intractable, without status epilepticus Status: Acute (3) Urinary tract infection: Code(s): N39.0 - Urinary tract infection, site not specified Status: Acute (4) Acute on chronic kidney failure: Code(s): N17.9 - Acute kidney failure, unspecified; N18.9 - Chronic kidney disease, unspecified Status: Acute (5) Hypothyroidism: Code(s): E03.9 - Hypothyroidism, unspecified Status: Acute Plan Marleen Perla is a 77 year old female with a history of prior stroke, epilepsy, atrial fibrillation, chronic kidney disease, COPD, CAD, HLD, HTN, DM, hypothyroidism presenting from longterm facility due to change in mental status. Suspect overall decline in mentation to be due to several factors including uremia, hypothyroidism, and possible infection (cellulitis/UTI?). She has had a couple of transient episodes where she is difficult to rouse, concerning for possible breakthrough seizures. She was on subtherapeutic dosing of Keppra for her size. Dose increased to 250mg in AM and 500mg qhs. She has not had any unresponsive episodes since the adjustment. Mental status is better today. - Continue Keppra 250mg qAM and 500mg qhs - Routine EEG ordered, pending Subjective Date/time seen: 12/12/22 12:25 Interval history: Marleen Perla is a 77 year old female with a history of prior stroke, epilepsy, atrial fibrillation, chronic kidney disease, COPD, CAD, HLD, HTN, DM, hypothyroidism presenting from longterm facility due to change in mental status. Patient was brought in on 12/07 for reportedly several week history of change in mental status. At baseline she is oriented to self and location only, but on presentation to the ER she was only AOx1. She also has aphasia and coordination issues at baseline, due to prior strokes. Per EMS, she did have a seizure prior to being picked up to go to the hospital. She had a CT head in the ER that did not show any acute abnormalities, but shows generalized volume loss and old strokes in the right parietal, and left parietal/occipital regions. Her UA was suggestive of urinary tract infection. She received a dose of Keppra in the ER and was started on IV antibiotics. She takes Keppra 250mg BID for epilepsy. Her lab work during this admission was also significant for a significantly elevated TSH of 13.2 and elevated BUN 91 (baseline seems to be in the 40s?). Her folate and B12 levels are normal. Her CrCl today is 36, and it seems to hover in the 30s. She was found to be anemic and had positive fecal occult so GI was consulted, and they will be taking her for colonoscopy. Her Xarelto is being held currently. Patient has twos episode during the admission where it was difficult to get her to respond. They were concerned that she may have had occult seizures preceding those episodes. Keppra was increased from 250mg BID to 250mg qAM and 500mg qhs. She has not tolerated 500mg BID in the past due to sedation. She had her first stroke about 7 years ago, and has had several other strokes since then per son. EKG from this admission showed SR with 1st degree AV block. Interval history: No additional unresponsive events in the past day. Seems to be more alert today. Continuing bowel prep for pending colonoscopy. Review of Systems Review of Systems: ROS unobtainable: Yes unobtainable due to mental status Exam Const: General: comfortable and no acute distress HENMT: Mouth: Yes moist mucous membranes Eyes: Pupils: Equal, round and reactive pupils present Other: conjugate gaze Resp: Effort & Inspection: normal respiratory effort Urinary Catheter: Urinary Catheter: patent and draining Skin: General skin exam: normal color Neuro: Other: Awake, hiral
[2022-12-12] MEDS: LACTATED RINGERS 1,000 ML 150 ML IV CONT (13:44)
[2022-12-12 13:50] LABS: Glucose Point of Care 168 mg/dl (65-105)
--- NOTE | 2022-12-12 13:58 | WPDANESEPPF ---
Anes - Initial Pre Proc Eval Procedure: Operation Date: 12/12/22 14:45 Proposed Procedures p Esophagogastroduodenoscopy & Colonoscopy - Memo Sunshine MD Date/Time: 12/12/22 13:58 Surgeon: Celia Muir DO Pre Op Diagnosis: ams Patient Data Age: 77 Gender: F Height: 1.63 m Weight: 118.5 kg Last Vital Signs Temp 36.1 C L 12/12/22 13:41 Pulse 65 12/12/22 13:41 Resp 18 12/12/22 13:41 BP 151/67 H 12/12/22 13:41 Pulse Ox 100 12/12/22 13:41 O2 Del Method Room Air 12/12/22 13:41 O2 Flow Rate 2 12/12/22 08:00 FiO2 36 12/11/22 08:00 Allergies Allergy/AdvReac Type Severity Reaction Status Date / Time adhesive tape Allergy Unknown Unknown Verified 12/12/22 13:37 amoxicillin Allergy Unknown Unknown Verified 12/12/22 13:37 ciprofloxacin Allergy Unknown Unknown Verified 12/12/22 13:37 clavulanic acid Allergy Unknown Unknown Verified 12/12/22 13:37 hydromorphone Allergy Unknown Unknown Verified 12/12/22 13:37 morphine Allergy Unknown Unknown Verified 12/12/22 13:37 Home Medications Medication Instructions Recorded Confirmed Type pregabalin 150 mg capsule (Lyrica) 150 mg PO BID #60 caps 07/12/21 12/07/22 Rx zolpidem 5 mg tablet (Ambien) 5 mg PO QHS PRN insomnia #90 tabs 07/12/21 12/07/22 Rx Adult One Daily Multivitamin 1 tablet PO DAILY 12/16/21 12/07/22 History acetaminophen 500 mg tablet 1,000 mg PO Q6H PRN Pain (Scale 12/16/21 12/07/22 History Score 1-3) amiodarone 200 mg tablet 200 mg PO DAILY 12/16/21 12/07/22 History aspirin 81 mg tablet,delayed 81 mg PO DAILY 12/16/21 12/07/22 History release cetirizine 10 mg tablet 10 mg PO DAILY 12/16/21 12/07/22 History insulin glargine 100 unit/mL 40 unit subcut Q12H 12/16/21 12/07/22 History subcutaneous solution (Lantus U-100 Insulin) insulin lispro 100 unit/mL 14 unit subcut TIDWM 12/16/21 12/07/22 History subcutaneous cartridge (Humalog U-100 Insulin) levothyroxine 175 mcg tablet 150 mcg PO QAM 12/16/21 12/07/22 History liothyronine 5 mcg tablet (Cytomel) 5 mcg PO QAM 12/16/21 12/07/22 History pantoprazole 40 mg tablet,delayed 40 mg PO DAILY 12/16/21 12/07/22 History release (Protonix) polyethylene glycol 3350 17 gram 17 g PO DAILY 12/16/21 12/07/22 History oral powder packet (Miralax) potassium chloride 20 mEq oral 20 meq PO BID 12/16/21 12/07/22 History packet rivaroxaban 15 mg tablet (Xarelto) 15 mg PO HS 12/16/21 12/07/22 History spironolactone 25 mg tablet 25 mg PO DAILY 12/16/21 12/07/22 History Saccharomyces boulardii 250 mg 250 mg PO BID 12/07/22 12/07/22 History capsule (Florastor) albuterol sulfate 2.5 mg/3 mL 2.5 mg inhalation QID PRN 12/07/22 12/07/22 History (0.083 %) solution for nebulization Shortness Of Breath Or Wheezing bumetanide 1 mg tablet 1 mg PO DAILY 12/07/22 12/07/22 History bumetanide 2 mg tablet 2 mg PO DAILY 12/07/22 12/07/22 History cyanocobalamin (vitamin B-12) 500 1,000 mcg PO DAILY 12/07/22 12/07/22 History mcg tablet dicyclomine 10 mg capsule 10 mg PO Q12H 12/07/22 12/07/22 History docusate sodium 100 mg tablet 100 mg PO QNOON 12/07/22 12/07/22 History doxycycline hyclate 100 mg capsule 100 mg PO BID 12/07/22 12/07/22 History ferrous sulfate 325 mg (65 mg 325 mg PO DAILY 12/07/22 12/07/22 History iron) tablet (FeroSul) insulin lispro 100 unit/mL See Rx Instructions .Route .COMPLEX 12/07/22 12/07/22 History subcutaneous pen (Humalog KwikPen (U-100) Insulin) levetiracetam 250 mg tablet 250 mg PO BID 12/07/22 12/07/22 History nystatin 100,000 unit/gram topical 1 applic topical DAILY 12/07/22 12/07/22 History powder (Nystop) sennosides 8.6 mg tablet (senna) 17.2 mg PO QNOON 12/07/22 12/07/22 History venlafaxine 50 mg tablet 50 mg PO HS 12/07/22 12/07/22 History venlafaxine 75 mg tablet 75 mg PO DAILY 12/07/22 12/07/22 History Laboratory Tests 12/11/22 12/11/22 12/12/22 16:14 20:14 06:28 WBC 5.2 K/mm3 (4.5-10.0) RBC 2.63 L M/mm3
--- NOTE | 2022-12-12 15:07 | PM.IMPN ---
Progress Note: A&P Assessment and Plan (1) Encephalopathy: Code(s): G93.40 - Encephalopathy, unspecified Status: Acute Assessment and Plan: She reportedly had seizure activity and was most likely postictal. She remained confused however felt related to worsening renal function and uremia. Urine is also abnormal, concerning for UTI but UCx negative. Stroke seems less likely. Continue neurologic checks and close monitoring. Remains on Keppra. TSH quite elevated. She is at [place] and receiving medications appropriately. We advanced Synthroid and monitor in 4-6 weeks after advancing daily dose. Mental status was much worse 12/11. Post-ictal? Glucose recheck was 91. Brain CT showing no acute findings. ABG 7.35/49.8/155 on 4L. She was weaned to 2L. Son in room. He stated that patient has garbled speech chronically from an old stroke. He also stated that patient was too sleepy with Keppra 500mg Q12h. Keppra was decreased to 250mg Q12h with plans to increase Keppra to 250mg QAM and 500mg QPM at some point. Patient not been able to get back in to see neurologist. We advanced Keppra to 250mg in AM and 500mg qhs. Neuro consulted and appreciated their input. EEG pending. (2) Acute on chronic kidney failure: Code(s): N17.9 - Acute kidney failure, unspecified; N18.9 - Chronic kidney disease, unspecified Status: Acute Assessment and Plan: BUN and creatinine are elevated from baseline. Clinically felt to be dehydrated. Johnson catheter yielded over 700 cc of urine upon insertion and her renal function has also improved with IV fluids. Continue cautious IV fluid rehydration with close monitoring of volume status. Avoid nephrotoxic agents. Nephrology consulted BUN 40 and Cr 1.4 today and at baseline (1.7-2.0). Follow (3) Macrocytic anemia: Code(s): D53.9 - Nutritional anemia, unspecified Status: Acute Assessment and Plan: Hemoglobin is lower than what she typically runs. Hgb was 12.4 in August. She has multiple areas of bruising with a differential to include calciphylaxis, though no hematoma is noted and she denies blood loss. Perhaps related to worsening renal function? Iron studies, B12, folate, and stool for occult blood ordered for further evaluation. Monitor H&H closely. Iron deficiency with TSat 7%. B12/folate normal. FOBT+. Received 1U PRBC on 12/07. Hgb stable since in the 7-8 range. GI consulted and appreciated thier input. Remains on PPI. 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 The lesion was cauterized successfully. Biopsies were taken. Colonoscopy showed multiple diverticula in the sigmoid colon. No evidence of active bleeding. [place] that her anemia was acute blood loss anemia related to bleeding AVM. Aspirin and Xarelto remain on hold. Resume aspirin in 5 days. Add iron (4) Seizure disorder: Code(s): G40.909 - Epilepsy, unspecified, not intractable, without status epilepticus Status: Acute Assessment and Plan: As above. Continue levetiracetam with above adjustement (5) Paroxysmal atrial fibrillation: Code(s): I48.0 - Paroxysmal atrial fibrillation Status: Acute Assessment and Plan: EKG on admission showing NSR. Remains in a sinus rhythm by tele. Continue amiodarone. Xarelto on hold. Resume when okay with GI. (6) Insulin dependent type 2 diabetes mellitus: Code(s): E11.9 - Type 2 diabetes mellitus without complications; Z79.4 - jail (current) use of insulin Status: Acute Assessment and Plan: A1c 6.4. The patient's blood glucose was reviewed on 12/12 Glucose well controlled Continue AccuCheks covering with sliding scale. Hypoglycemia protocol available as needed. Resume Lantus at lower dose. She may be too well controlled at home but A1c may be inaccurate due to the blood loss. Continue to monitor (7) Cellulitis of right leg: Code(s): L03.115 - Cellulitis of right lower
--- NOTE | 2022-12-12 15:12 | SUR.OPER ---
EGD END TIME: 1503 COLON START TIME: 1514
[2022-12-12] MEDS: AMIODARONE HCL 200 MG TABLET PO (16:12)
[2022-12-12] MEDS: levETIRAcetam 250 MG TABLET PO (16:13)
[2022-12-12] MEDS: CYANOCOBALAMIN 1,000 MCG TABLET 1000 MCG PO (16:13)
[2022-12-12] MEDS: LIOTHYRONINE SODIUM 5 MCG TABLET PO (16:13)
[2022-12-12] MEDS: VENLAFAXINE HCL 75 MG TABLET PO (16:14)
[2022-12-12] MEDS: MULTIVITAMINS THERAPEUTIC TAB (*BKC) 1 TABLET PO (16:14)
[2022-12-12] MEDS: PREGABALIN (*CRX) 75 MG CAPSULE 150 MG PO (16:14)
[2022-12-12] MEDS: TOLNAFTATE 1% POWDER 45 GM BTL 1 APPLIC TOPICAL ×2 (16:14→20:45)
[2022-12-12] MEDS: LORATADINE 10 MG TABLET PO (16:14)
[2022-12-12] MEDS: CENTRAL LINE FLUSH 10 ML IV PUSH (16:14)
[2022-12-12] MEDS: SACCHAROMYCES BOULARDII 250 MG CAPSULE PO (16:14)
[2022-12-12] MEDS: PANTOPRAZOLE 40 MG TABLET PO (16:14)
[2022-12-12 16:35] LABS: Glucose Point of Care 171 mg/dl (65-105)
[2022-12-12] MEDS: VENLAFAXINE HCL 25 MG TABLET 50 MG PO (20:44)
[2022-12-12] MEDS: DICYCLOMINE HCL 10 MG CAPSULE PO (20:44)
[2022-12-12] MEDS: levETIRAcetam 500 MG TABLET PO (20:44)
[2022-12-12] MEDS: INSULIN ASPART (*BKC) 100 UNITS/ML SUB-Q (21:11)
[2022-12-12] MEDS: INSULIN GLARGINE (*BKC) 100 UNITS/ML 25 UNITS SUB-Q (21:11)
[2022-12-12] MEDS: ALTEPLASE 2 MG VIAL (CATHFLO) IV PUSH ×2 (21:33→23:45)
[2022-12-12 21:57] LABS: Glucose Point of Care 234 mg/dl (65-105)
[2022-12-13] VITALS (16 sets, daily range): BP systolic 109–129; BP diastolic 56–78; PULSE 68–75; RESP 16–20; TEMP 36.1–36.6; O2SAT 94–100
--- NOTE | 2022-12-13 00:02 | PC.NURSE ---
white lumen of midline unable to flush or obtain blood return. purple lumen flushes but is very sluggish. Cathflo administered into purple lumen per protocol.
[2022-12-13] MEDS: IPRATROPIUM BR 0.02% INH SOLN 0.5 MG/2.5 ML VIAL INHALATION ×4 (02:34→19:55)
[2022-12-13] MEDS: IRON SUCROSE COMPLEX 100 MG in SODIUM CHLORIDE 0.9% IV 50 ML 220 MG IVPB ×2 (05:05→08:43)
[2022-12-13] MEDS: WATER, STERILE FOR INJECTION 10 ML VIAL XX (05:06)
[2022-12-13] MEDS: LEVOTHYROXINE SODIUM 25 MCG TABLET PO (05:28)
[2022-12-13] MEDS: LEVOTHYROXINE SODIUM 150 MCG TABLET PO (05:28)
[2022-12-13 07:09] LABS: Basophils Absolute Auto 0.1 K/mm3 (0.0-0.1); Basophils Percent Auto 0.7 % (0.2-1.2); Eosinophils Absolute Auto 0.9 K/mm3 (0-0.3); Eosinophils Percent Auto 12.6 % (0-4.4); Hematocrit 28.6 % (37.0-47.0); Hemoglobin 8.7 g/dL (12.0-15.0); Immature Granulocyte Absolute 0.03 K/mm3 (0.00-0.031); Immature Granulocyte Percent A 0.4 % (0-0.5); Lymphocytes Absolute Auto 1.18 K/mm3 (0.9-3.2); Lymphocytes Percent Auto 17.2 % (18.3-44.2); Mean Corpuscular HGB Conc 30.4 g/dl (32-36); Mean Corpuscular Hemoglobin 30.2 pg (26-34); Mean Corpuscular Volume 99.3 fl (80-100); Monocytes Absolute Auto 0.6 K/mm3 (0.1-0.6); Monocytes Percent Auto 8.7 % (2.6-8.5); Neutrophils Absolute Auto 4.2 K/mm3 (1.3-6.7); Neutrophils Percent Auto 60.4 % (45.5-73.1); Platelet Count Result 183 k/mm3 (150-375); Red Blood Count 2.88 M/mm3 (4.2-5.4); Red Cell Distribution Width 15.6 % (11.5-14.5); White Blood Count 6.9 K/mm3 (4.5-10.0)
[2022-12-13 07:28] LABS: Alanine Aminotransferase 37 U/L (6-35); Albumin Level 2.8 g/dL (3.5-5.1); Alkaline Phosphatase 190 U/L (38-126); Anion Gap 4 mmol/L (8-16); Aspartate Amino Transferase 51 U/L (14-36); Bilirubin,Total 0.4 mg/dL (0.2-1.3); Blood Urea Nitrogen 41 mg/dL (7-17); Calcium 8.1 mg/dL (8.4-10.2); Carbon Dioxide 27 mmol/L (22-30); Chloride 101 mmol/L (98-107); Estimated CRCL calculation 42 ml/min; Estimated Glomerular Filt Rate 40; Glucose 166 mg/dL (65-110); Potassium 3.9 mmol/L (3.4-5.0); Sodium 132 mmol/L (137-145)
[2022-12-13 07:42] LABS: Glucose Point of Care 166 mg/dl (65-105)
--- NOTE | 2022-12-13 07:57 | WPDGIPROGNO ---
Progress Note: A&P Assessment and Plan (1) GI (gastrointestinal bleed): Qualifiers: GI bleed type/associated pathology: unspecified gastrointestinal hemorrhage type Qualified Code(s): K92.2 - Gastrointestinal hemorrhage, unspecified Code(s): K92.2 - Gastrointestinal hemorrhage, unspecified Status: Acute Assessment and Plan: She has had no overt bleeding, however FOBT was positive. EGD revealed a gastric AVM. There was active oozing of blood on entering the stomach. No additional lesions were seen. H pylori was negative. colonoscopy was unremarkable except for diverticulosis. The residual stool was brown. (2) Anemia: Qualifiers: Anemia type: unspecified type Qualified Code(s): D64.9 - Anemia, unspecified Code(s): D64.9 - Anemia, unspecified Status: Acute Assessment and Plan: She received 1 unit of blood with her hemoglobin coming up to 8.3. She has a mature chronic anemia due to chronic kidney disease. She also has macrocytic indices and she could have a nutritional or hematopoietic problem as well She has a macrocytic anemia with low iron counts. Hematology may need to get involved. (3) Insulin dependent type 2 diabetes mellitus: Code(s): E11.9 - Type 2 diabetes mellitus without complications; Z79.4 - jail (current) use of insulin Status: Acute Assessment and Plan: Unfortunately, she does not have a carbohydrate controlled diet at the [facility]. Her son states that everyone gets the same food with no options. (4) Chronic kidney disease, stage IV (severe): Code(s): N18.4 - Chronic kidney disease, stage 4 (severe) Status: Chronic Assessment and Plan: She has been followed by Dr. Scott in this hospitalization. It does not seem that she has regular follow ups with a change management expert as an outpatient. (5) Paroxysmal atrial fibrillation: Code(s): I48.0 - Paroxysmal atrial fibrillation Status: Acute Assessment and Plan: She has been on Xarelto for this condition. Xarelto has been held pending GI workup Plan EGD and colonoscopy to be done on . The patient has done states that she is constipated now she would like some lactulose. She also said that she would not be able to drink the prep in a short period of time as is normally done. I told her that we will let her take her time and drink it tomorrow throughout the day. 12/13/22 from my perspective she is stable and can be discharged at any time. Subjective Date/time seen: 12/13/22 07:57 she is tolerating her diet. She has no gastrointestinal complaints. She has chronic constipation worries about getting bound up. Although we discussed importance of a high-fiber diet her son states that at [place] day all get the same meal. I had suggested a high-fiber diet but apparently the options are very limited. Exam Const: General: cooperative, healthy appearing and obese Nutritional Appearance: obese Orientation/consciousness: patient oriented x3 HENMT: Head: normal to inspection Ears: hearing grossly normal bilaterally Mouth: Yes Normal oral and palatal mucosa present Eyes: General: appearance normal, both eyes and all related structures Neck: Neck: normal visual inspection Chest: Chest palpation & inspection: normal inspection of the chest Resp: Effort & Inspection: normal respiratory effort Auscultation: clear to auscultation bilaterally Cardio: Rate: regular rate Rhythm: abnormal rhythm irregularly irregular GI: Inspection: normal to inspection and obesity Auscultation: normal bowel sounds Skin: General skin exam: normal color and no jaundice Neuro: General: patient oriented x3 Speech: normal speech Objective Data Vital Signs Vital Signs: Vital Signs - 24 hr 12/12/22 08:00 12/12/22 09:00 12/12/22 09:07 Temperature Pulse Rate 73 75 Respiratory Rate 18 18 Blood Pressure Pulse Oximetry 96 Ox
[2022-12-13] MEDS: PREGABALIN (*CRX) 75 MG CAPSULE 150 MG PO ×2 (08:42→16:55)
[2022-12-13] MEDS: CYANOCOBALAMIN 1,000 MCG TABLET 1000 MCG PO (08:42)
[2022-12-13] MEDS: SACCHAROMYCES BOULARDII 250 MG CAPSULE PO ×2 (08:42→16:55)
[2022-12-13] MEDS: levETIRAcetam 250 MG TABLET PO (08:42)
[2022-12-13] MEDS: polyethylene glycoL 3350 17 GM POWD.PACK PO (08:42)
[2022-12-13] MEDS: DICYCLOMINE HCL 10 MG CAPSULE PO ×2 (08:43→21:15)
[2022-12-13] MEDS: PANTOPRAZOLE 40 MG TABLET PO (08:43)
[2022-12-13] MEDS: MULTIVITAMINS THERAPEUTIC TAB (*BKC) 1 TABLET PO (08:43)
[2022-12-13] MEDS: AMIODARONE HCL 200 MG TABLET PO (08:43)
[2022-12-13] MEDS: LORATADINE 10 MG TABLET PO (08:43)
[2022-12-13] MEDS: VENLAFAXINE HCL 75 MG TABLET PO (08:43)
[2022-12-13] MEDS: LIOTHYRONINE SODIUM 5 MCG TABLET PO (08:43)
[2022-12-13] MEDS: TOLNAFTATE 1% POWDER 45 GM BTL 1 APPLIC TOPICAL (08:44)
[2022-12-13] MEDS: INSULIN GLARGINE (*BKC) 100 UNITS/ML 25 UNITS SUB-Q ×2 (08:45→21:18)
[2022-12-13 11:26] LABS: Glucose Point of Care 202 mg/dl (65-105)
[2022-12-13] MEDS: hydrOXYzine HCL 25 MG TABLET PO ×2 (11:43→22:22)
[2022-12-13] MEDS: DOCUSATE SODIUM 100 MG CAPSULE PO (11:43)
[2022-12-13] MEDS: SENNOSIDES 8.6 MG TABLET 17.2 MG PO (11:43)
[2022-12-13] MEDS: INSULIN ASPART (*BKC) 100 UNITS/ML SUB-Q ×2 (11:44→21:20)
[2022-12-13 12:31] LABS: Vancomycin Trough 13.2 ug/mL (10.0-20.0)
--- NOTE | 2022-12-13 16:21 | PM.DS ---
DS: Admitting Diagnosis Discharge Date 12/13/22 Admitting Diagnosis Altered mental status DS: Discharge Diagnosis Discharge Diagnosis (1) Encephalopathy: Code(s): G93.40 - Encephalopathy, unspecified Status: Acute (2) Acute on chronic kidney failure: Code(s): N17.9 - Acute kidney failure, unspecified; N18.9 - Chronic kidney disease, unspecified Status: Acute (3) Macrocytic anemia: Code(s): D53.9 - Nutritional anemia, unspecified Status: Acute (4) Seizure disorder: Code(s): G40.909 - Epilepsy, unspecified, not intractable, without status epilepticus Status: Acute (5) Paroxysmal atrial fibrillation: Code(s): I48.0 - Paroxysmal atrial fibrillation Status: Acute (6) Insulin dependent type 2 diabetes mellitus: Code(s): E11.9 - Type 2 diabetes mellitus without complications; Z79.4 - [facility] (current) use of insulin Status: Acute (7) Cellulitis of right leg: Code(s): L03.115 - Cellulitis of right lower limb Status: Acute (8) Chronic respiratory failure: Code(s): J96.10 - Chronic respiratory failure, unspecified whether with hypoxia or hypercapnia Status: Acute (9) Urine retention: Code(s): R33.9 - Retention of urine, unspecified Status: Acute (10) Urinary tract infection: Code(s): N39.0 - Urinary tract infection, site not specified Status: Acute DS: Summary Hospital Course Reason for hospitalization: 77-year-old female with history of stroke, seizures, paroxysmal atrial fibrillation on chronic anticoagulation, coronary artery disease, congestive heart failure, hypertension, insulin-dependent diabetes, chronic kidney disease stage IV, chronic obstructive pulmonary disease, and hypothyroidism who presented to the emergency department via EMS from [facility] for evaluation of altered mental status and suspected seizure and found to have FARNAZ, and anemia. Please see H&P for details. Hospital Course: She reportedly had seizure activity and was most likely postictal. She remained confused however felt related to worsening renal function and uremia. Urine was also abnormal, concerning for UTI but UCx negative. Stroke felt less likely. TSH was elevated. She is at [place] and receiving medications appropriately. We advanced Synthroid and will monitor in 4-6 weeks after advancing daily dose. Mental status was much worse 12/11. Post-ictal? Glucose recheck was 91. Brain CT showing no acute findings. ABG 7.35/49.8/155 on 4L. She was weaned to 2L. Son in room. He stated that patient has garbled speech chronically from an old stroke. He also stated that patient was too sleepy with Keppra 500mg Q12h. Keppra was decreased to 250mg Q12h with plans to increase Keppra to 250mg QAM and 500mg QPM at some point. Patient not been able to get back in to see neurologist. We advanced Keppra to 250mg in AM and 500mg qhs. Neuro consulted and appreciated their input. Patient with acute on chronic kidney failure. BUN and creatinine were elevated from baseline. Clinically felt to be dehydrated. Johnson catheter yielded over 700 cc of urine upon insertion and her renal function has also improved with IV fluids. Treated with IV fluid rehydration with close monitoring of volume status. Cr 1.3 today and at baseline (1.7-2.0). Hemoglobin was lower than what she typically runs. Hgb was 12.4 in August. She has multiple areas of bruising with a differential to include calciphylaxis, though no hematoma is noted and she denies blood loss. Noted to be iron deficient. Iron deficiency with TSat 7%. B12/folate normal. FOBT+.? Received 1U PRBC on 12/07. Hgb stable since in the 7-8 range. GI consulted. She remained on PPI. 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 The lesion was cauterized successfully.? Biopsies were taken. Colonoscopy showed multiple diverticula in the sigmoid colon.? No evidence of active bleeding. [place] that he
[2022-12-13 16:44] LABS: Glucose Point of Care 171 mg/dl (65-105)
--- NOTE | 2022-12-13 18:11 | PC.NURSE ---
Addendum entered by Jessica Henriquez RN 12/13/22 18:30: Spoke to Dr. Wang about Johnson DC, new orders on DC. Original Note: Urinary Catheter discontinued at 1700, Patient has been DC'd but waiting on patient to pee after removal at this time
[2022-12-13 18:27] LABS: SARS-CoV-2 RNA PCR Negative (Negative)
[2022-12-13] MEDS: levETIRAcetam 500 MG TABLET PO (21:15)
[2022-12-13] MEDS: VENLAFAXINE HCL 25 MG TABLET 50 MG PO (21:15)
[2022-12-13 21:55] LABS: Glucose Point of Care 210 mg/dl (65-105)
--- NOTE | 2022-12-16 11:46 | WPDNEUROLOGY ---
Neurology EEG Report General Information Date of Study: 12/11/22 TEST EEG DIAGNOSIS seizures with altered mental status CONDITION OF RECORDING awake drowsy and sleep EEG NUMBER [id number] CLINICAL HISTORY history of seizures and change in the mental status EEG DESCRIPTION background rhythm consists of low to medium voltage 2 to 3 hertz per 2nd delta activity admixed with movement artifacts. bilateral symmetrical sleep activity seen during sleep without evidence of any paroxysmal activity. Hyperventilation obviously not done photic stimulation not done. Non paroxysmal. Nonfocal. Nonlateralizing. IMPRESSION Abnormal record due to the presence of bihemispheric delta activity without evidence of any paroxysmal discharge. These abnormalities could be suggestive of underlying organic or metabolic encephalopathy or postictal state but there is no evidence of any electrical seizure on this tracing. Clinical correlation recommended
== END 2022-12-14 00:40 | DRG 682 ==
LOC: ANHED 12-07 07:43 → ANHIMU 12-07 08:53 → ANH3MEDSUR 12-10 12:07
PROVIDERS: Internal Medicine Critical Care Medicine; Internal Medicine Gastroenterology; Physician Assistant; Admitting Provider Student in an Organized Health Care Education/Training Program; Emergency Provider Emergency Medicine; PCP Family Medicine; Visit Provider Internal Medicine
PROC: 0DJ08ZZ Inspection of Upper Intestinal Tract, Via Natural or Artificial Opening Endoscopic (ICD-10-PCS; CPT 43235; principal; 2022-12-12 14:45)
DX: N17.9 Acute kidney failure, unspecified (principal); K31.811 Angiodysplasia of stomach and duodenum with bleeding; D62 Acute posthemorrhagic anemia; L03.115 Cellulitis of right lower limb; J96.10 Chronic respiratory failure, unspecified whether with hypoxia or hypercapnia; I13.0 Hypertensive heart and chronic kidney disease with heart failure and stage 1 through stage 4 chronic kidney disease, or unspecified chronic kidney disease; G93.40 Encephalopathy, unspecified; Z68.41 Body mass index [BMI] 40.0-44.9, adult; N18.4 Chronic kidney disease, stage 4 (severe); I50.9 Heart failure, unspecified; K57.30 Diverticulosis of large intestine without perforation or abscess without bleeding; E11.22 Type 2 diabetes mellitus with diabetic chronic kidney disease; I25.10 Atherosclerotic heart disease of native coronary artery without angina pectoris; Z20.822 Contact with and (suspected) exposure to COVID-19; D53.9 Nutritional anemia, unspecified; J44.9 Chronic obstructive pulmonary disease, unspecified; E03.9 Hypothyroidism, unspecified; E86.0 Dehydration; G40.909 Epilepsy, unspecified, not intractable, without status epilepticus; I48.0 Paroxysmal atrial fibrillation; D63.1 Anemia in chronic kidney disease; E11.9 Type 2 diabetes mellitus without complications; R33.9 Retention of urine, unspecified; I69.328 Other speech and language deficits following cerebral infarction; Z79.4 Long term (current) use of insulin; Z79.01 Long term (current) use of anticoagulants; Z90.49 Acquired absence of other specified parts of digestive tract; Z95.5 Presence of coronary angioplasty implant and graft; Z79.82 Long term (current) use of aspirin; E66.01 Morbid (severe) obesity due to excess calories; Z99.81 Dependence on supplemental oxygen; Z74.01 Bed confinement status
CPT/HCPCS: 36415; 36430; 36569; 36600; 70450; 71045; 74176; 80048; 80053; 80076; 80202; 81001; 82274; 82550; 82607; 82728; 82746; 82805; 82948; 83036; 83540; 83550; 83605; 83735; 84100; 84439; 84443; 84480; 84484; 85025; 85055; 85610; 85730; 86850; 86900; 86901; 86920; 87040; 87081; 87086; 87088; 87635; 93005; 93970; 94640; 95816; 96361; 96365; 96367; 99285; A9270; C1751; G0378; J0696; J1756; J1815; J1953; J2405; J2704; J2997; J3370; J7030; J7040; J7042; J7050; J7120; P9016

== ENCOUNTER 2022-12-29 10:18 | Inpatient (IN) | payer MEDICARE, OTHER, MEDICAID, SELFPAY ==
[2022-12-29] VITALS (14 sets, daily range): BP systolic 104–140; BP diastolic 55–89; PULSE 67–85; RESP 13–20; TEMP 36.3–37.7; O2SAT 98–100
--- NOTE | ~2022-12-29 | XR_ITS ---
XR chest 1V portable DATE: 12/29/2022 12:40 INDICATION: Altered mental state. Evaluate for pneumonia. TECHNIQUE: Portable supine AP view on 12/29/2022 at 1236 hours COMPARISON: 12/11/2022 portable AP chest at 0528 hours FINDINGS: Cardiomegaly. There is pulmonary vascular redistribution suggesting pulmonary venous hypert ension. There is prominence of minor fissure suggesting subpleural edema. No pulmonary consolidation or pleural effusion or pneumothorax is detected. Diffuse osteopenia. IMPRESSION: Cardiomegaly, mild congestive change Reviewed, dictated and finalized at location B.
--- NOTE | ~2022-12-29 | CT_ITS ---
EXAMINATION: CT brain wo con DATE: 12/29/2022 11:57 INDICATION: Altered mental status. TECHNIQUE: Computed tomography (CT) of the head was performed without intravenous contrast. The mA wa s adjusted according to patient size. Iterative reconstruction technique was employed. The dose-lengt h product was 605.33 mGy-cm. COMPARISON: Head CT 12/11/2022 FINDINGS: There is an old infarct in right parietal lobe. There is an old infarct involving left temp oral parietal occipital region. There is no intracranial hemorrhage, acute infarction, or abnormal in tracranial mass lesion. The ventricles are normal in size. There is mild mucosal thickening in the pa ranasal sinuses. There are likely changes of right ocular lens replacement surgery. There is a small right mastoid effusion. IMPRESSION: 1. Old infarct in right parietal lobe and old infarct in left temporal parietal occipital region. Reviewed, dictated and finalized at location E.
--- NOTE | ~2022-12-29 | CT_ITS ---
EXAMINATION: CT LE LT wo con DATE: 12/29/2022 11:56 INDICATION: Left lower extremity infection. TECHNIQUE: Computed tomography (CT) of the left lower limb was performed without intravenous contrast . Automated exposure control and iterative reconstruction technique were employed. The dose-length pr oduct was 925.37 mGy-cm. COMPARISON: None FINDINGS: Bone alignment is normal. No fracture. There is plate and screw fixation of distal fibula. There are screws in medial malleolus. There is sclerosis in proximal tibia, consistent with osteonecr osis. There is severe left knee osteoarthritis. No knee joint effusion. There is moderate ankle joint osteoarthritis. There is severe fatty atrophy of the musculature. There is widespread subcutaneous edema. No abscess. IMPRESSION: 1. Polyarticular osteoarthritis. 2. Osteonecrosis in proximal tibia. 3. Widespread subcutaneous edema. No abscess. Reviewed, dictated and finalized at location E.
--- NOTE | ~2022-12-29 | US_ITS ---
EXAMINATION: US venous doppler [facility] DATE: 12/29/2022 12:14 INDICATION: Lower limb pain, swelling and erythema TECHNIQUE: Grayscale ultrasound images without and with compression and Doppler ultrasound images of the bilateral lower extremity veins were obtained. COMPARISON: 12/10/2022 FINDINGS: The visualized portions of right common femoral vein, profunda (deep) femoral vein, femoral vein, pop liteal vein, posterior tibial veins, peroneal veins, gastrocnemius vein and greater saphenous vein ou tflow appear patent but many of the vessels are poorly visualized. Subcutaneous edema at the right ca lf and posterior to the right knee. The visualized portions of left common femoral vein, profunda femoral vein, femoral vein and greater saphenous vein outflow are patent. The left popliteal, greater saphenous, peroneal and posterior tibi al veins are not clearly visualized. Subcutaneous edema at the left calf and posterior to the left kn ee. IMPRESSION: 1. No evident deep venous thrombosis in either lower limb. Evaluation is limited with poor visualiza tion of many of the veins in the right lower limb and with nonvisualization of the veins at the left popliteal fossa and calf. Reviewed, dictated and finalized at location A. IMPRESSION: 1. No evident deep venous thrombosis in either lower limb. Evaluation is limit ed with poor visualization of many of the veins in the right lower limb and wit h nonvisualization of the veins at the left popliteal fossa and calf.
--- NOTE | 2022-12-29 11:09 | ECG_ITS ---
Measurements Intervals [place] Rate: 74 P: 264 AK: 181 QRS: 71 QRSD: 97 T: 72 QT: 444 QTc: 493 Interpretive Statements SINUS RHYTHM WITH FIRST-DEGREE AV BLOCK PROLONGED QT INTERVAL+ ABNORMAL ECG COMPARED TO ECG 12/08/2022 15:43:57 NO SIGNIFICANT CHANGE Electronically Signed On 12-29-2022 13:45:08 CDT by Abilio Bonner M.D.
[2022-12-29 11:19] LABS: Basophils Percent Auto 0.3 % (0.2-1.2); Eosinophils Absolute Auto 0.3 K/mm3 (0-0.3); Eosinophils Percent Auto 3.2 % (0-4.4); Hemoglobin 8.3 g/dL (12.0-15.0); Immature Granulocyte Absolute 0.04 K/mm3 (0.00-0.031); Immature Granulocyte Percent A 0.5 % (0-0.5); Lymphocytes Absolute Auto 2.13 K/mm3 (0.9-3.2); Lymphocytes Percent Auto 24.6 % (18.3-44.2); Mean Corpuscular HGB Conc 29.6 g/dl (32-36); Mean Corpuscular Hemoglobin 29.5 pg (26-34); Mean Corpuscular Volume 99.6 fl (80-100); Mean Platelet Volume 12.1 fl (7.4-10.4); Monocytes Absolute Auto 0.9 K/mm3 (0.1-0.6); Monocytes Percent Auto 10.3 % (2.6-8.5); Neutrophils Absolute Auto 5.3 K/mm3 (1.3-6.7); Neutrophils Percent Auto 61.1 % (45.5-73.1); Platelet Count Result 142 k/mm3 (150-375); Red Blood Count 2.81 M/mm3 (4.2-5.4); Red Cell Distribution Width 15.2 % (11.5-14.5); White Blood Count 8.7 K/mm3 (4.5-10.0)
[2022-12-29 11:29] LABS: Alanine Aminotransferase 31 U/L (6-35); Albumin Level 2.8 g/dL (3.5-5.1); Alkaline Phosphatase 161 U/L (38-126); Anion Gap 5 mmol/L (8-16); Aspartate Amino Transferase 51 U/L (14-36); Bilirubin,Total 0.6 mg/dL (0.2-1.3); Blood Urea Nitrogen 51 mg/dL (7-17); Calcium 7.9 mg/dL (8.4-10.2); Carbon Dioxide 30 mmol/L (22-30); Chloride 103 mmol/L (98-107); Estimated CRCL calculation 28 ml/min; Estimated Glomerular Filt Rate 24; Glucose 99 mg/dL (65-110); Potassium 3.7 mmol/L (3.4-5.0); Sodium 138 mmol/L (137-145)
[2022-12-29 11:31] LABS: INR 2.4; Prothrombin Time 27.8 Seconds (11.1-14.7)
[2022-12-29 11:32] LABS: Partial Thromboplastin Time 64.2 SECONDS (22.3-36.8)
[2022-12-29 11:44] LABS: Anisocytosis 1+ (NORMAL); Hypochromasia 1+ (NORMAL); Schistocytes None Seen (NORMAL)
--- NOTE | 2022-12-29 11:45 | ED.GENADULT ---
HPI - General Adult General Chief complaint: Altered Mental Status <Fernando Pittman PA-C - Last Filed: 12/29/22 16:38> Stated complaint: lethargic <Fernando Pittman PA-C - Last Filed: 12/29/22 16:38> Time Seen by Provider: 12/29/22 11:13 <Fernando Pittman PA-C - Last Filed: 12/29/22 16:38> Source: patient and family <Fernando Pittman PA-C - Last Filed: 12/29/22 16:38> Mode of arrival: ambulatory <Fernando Pittman PA-C - Last Filed: 12/29/22 16:38> Limitations: no limitations <Fernando Pittman PA-C - Last Filed: 12/29/22 16:38> History of Present Illness HPI narrative: This is a 77-year-old female with extensive past medical who presents to the ED via EMS from [facility] with chief complaint of increased weakness and confusion noted last night and worse this morning. Her son is here who is supplementing history. Apparently she became a little more confused, agitated with staff last night and this morning. He states she is normally A&O x2, sometimes knows time. Family reports she has increased redness, swelling and pain to the bilateral lower legs, much worse on the left lower leg. They also report that she has had recent medication changes with her Bumex for fluid retention with heart failure. She is now on 2 mg in the morning and at night which seems to be helping with the swelling. Reports water weight loss of 11 pounds over the past week. Patient states that her left lower leg is what is causing her the most pain. Family states that she had a fever of 102 yesterday. Denies nausea, vomiting, abdominal pain, head injury, LOC, chest pain, numbness, weakness. <Fernando Pittman PA-C - Last Filed: 12/29/22 16:38> Related Data Home medications: Home Medications Medication Instructions Recorded Confirmed Adult One Daily Multivitamin 1 tablet PO DAILY 12/16/21 12/29/22 acetaminophen 500 mg tablet 1,000 mg PO Q6H PRN Pain (Scale 12/16/21 12/29/22 Score 1-3) amiodarone 200 mg tablet 200 mg PO DAILY 12/16/21 12/29/22 aspirin 81 mg tablet,delayed 81 mg PO DAILY 12/16/21 12/29/22 release cetirizine 10 mg tablet 10 mg PO DAILY 12/16/21 12/29/22 insulin lispro 100 unit/mL 14 unit subcut TIDWM 12/16/21 12/29/22 subcutaneous cartridge (Humalog U-100 Insulin) liothyronine 5 mcg tablet (Cytomel) 5 mcg PO QAM 12/16/21 12/29/22 pantoprazole 40 mg tablet,delayed 40 mg PO DAILY 12/16/21 12/29/22 release (Protonix) polyethylene glycol 3350 17 gram 17 g PO BID 12/16/21 12/29/22 oral powder packet (Miralax) potassium chloride 20 mEq oral 20 meq PO BID 12/16/21 12/29/22 packet rivaroxaban 15 mg tablet (Xarelto) 15 mg PO HS 12/16/21 12/29/22 spironolactone 25 mg tablet 25 mg PO DAILY 12/16/21 12/29/22 Saccharomyces boulardii 250 mg 250 mg PO BID 12/07/22 12/29/22 capsule (Florastor) albuterol sulfate 2.5 mg/3 mL 2.5 mg inhalation QID PRN 12/07/22 12/29/22 (0.083 %) solution for nebulization Shortness Of Breath Or Wheezing bumetanide 2 mg tablet 2 mg PO DAILY 12/07/22 12/29/22 cyanocobalamin (vitamin B-12) 500 1,000 mcg PO DAILY 12/07/22 12/29/22 mcg tablet dicyclomine 10 mg capsule 10 mg PO Q12H 12/07/22 12/29/22 docusate sodium 100 mg tablet 100 mg PO QNOON 12/07/22 12/29/22 ferrous sulfate 325 mg (65 mg 325 mg PO DAILY 12/07/22 12/29/22 iron) tablet (FeroSul) nystatin 100,000 unit/gram topical 1 applic topical DAILY 12/07/22 12/29/22 powder (Nystop) sennosides 8.6 mg tablet (senna) 17.2 mg PO QNOON 12/07/22 12/29/22 venlafaxine 75 mg tablet 75 mg PO DAILY 12/07/22 12/29/22 levetiracetam 250 mg tablet 250 mg PO BID 12/29/22 12/29/22 <Fernando Pittman PA-C - Last Filed: 12/29/22 16:38> Allergies/adverse reactions: Allergies Allergy/AdvReac Type Severity Reaction Status Date / Time adhesive tape Allergy Unknown Unknown Verified 12/29/22 15:22 amoxicillin Allergy Unknown Unknown Verified 12/29/22 15:22 ciprofloxacin Allergy Unknown Unknown Verified 12/29/22 15:22
[2022-12-29 11:55] LABS: Basophilic Stippling 1+ (NORMAL)
[2022-12-29 12:46] LABS: NT Pro B Type Natriuretic Pept 5150 pg/mL (19.9-100)
[2022-12-29] MEDS: VANCOMYCIN 1,250 MG/NS 250 ML 1,250 MG/250 ML BAG 166.67 MG IVPB ×2 (14:26→16:34)
[2022-12-29 15:00] LABS: Appearance Urine Turbid (Clear); Bacteria Urine 4+ /hpf; Bilirubin Urine Negative (Negative); Blood Urine 3+ (Negative); Color Urine Dark Yellow (Yellow); Glucose Urine UA Negative (Negative); Ketones Urine Negative (Negative); Leukocyte Esterase Ur 3+ LEU/UL (Negative); Need Manual Microscopic Reviewed; Nitrate Urine Negative (Negative); Non Pathogenic Casts >20; Protein Urine 2+ mg/dL (Negative); RBC Urine 0-2 /hpf (0-2); Specific Grav Ur 1.014 (1.001-1.035); Squamous Epithelial Cell Urine Many /hpf (Few); Urobilinogen Urine 0.2 mg/dL (<2.0); WBC Urine >100 /hpf
[2022-12-29 15:07] LABS: Add Urine Microscopic? YES
--- NOTE | 2022-12-29 15:11 | ADMGEN ---
This patient, Marleen Perla, was admitted to Medical Room 241-. Patient/family oriented to hospital policies and general routines including ID bracelet, bed and alarms, visiting hours, pain management, procedures, bathroom and other care routines, personal items, smoking policy, room service/diet, and visiting hours. Information on how to activate the Rapid Response Team has been discussed. Patient/Family are encouraged to report perceived risks to care and to ask questions if they do not understand what they are told or what they should do.
--- NOTE | 2022-12-29 15:25 | PM.IMHP ---
H&P: HPI History of Present Illness Date/Time: 12/29/22 13:55 Chief Complaint: Weakness and confusion. Narrative: This is a chronically ill 77-year-old female with history of stroke, seizures, paroxysmal atrial fibrillation on chronic anticoagulation, coronary artery disease, congestive heart failure, hypertension, insulin-dependent diabetes, chronic kidney disease stage IV, chronic obstructive pulmonary disease, and hypothyroidism who presented to the emergency department via EMS from [facility] for evaluation of weakness and confusion. She is less interactive today than when I have seen her previously and she does not provide much in the way of history. As such a majority of the following is obtained via a review of her EMR as well as discussions with her son who was at bedside. She was recently discharged from the hospital on 12/13/2022 after being admitted with encephalopathy (possibly postictal) and acute on chronic renal failure. During the stay her hemoglobin dropped and an EGD showed a localized AVM in the antrum which was actively bleeding and cauterized successfully. Renal function improved with IV fluids and Johnson catheter which yielded over 700 mL of urine upon insertion. Johnson catheter was discontinued on discharge and she had a normal voiding trial. However she began having issues with urinary retention again and she now has an indwelling catheter. Son reports that he saw her yesterday morning and she was in good spirits, eating well, and went to [employer]. As the day progressed however she started to get confused and she called him last evening with reports of pain in her left leg. Last night her temperature apparently jumped to 102? F and she was sent in today with increasing weakness. There were no reports of falls or sick contacts. In the ED: Blood pressures have been stable since arrival in her temperature was 99.9?. Labs were significant for a WBC count of 8.7, hemoglobin 8.3, BUN 51, creatinine 2.00, proBNP 5150. Urine was positive for 2+ protein, 3+ blood, 3+ leukocyte esterase, greater than 100 WBC, 4+ bacteria, and many squamous cells. Chest x-ray showed cardiomegaly with mild congestive changes. Venous Doppler ultrasounds of the lower extremity showed no evidence of DVT blood valuation was limited in some spots. CT of the left leg showed polyarticular osteoarthritis, osteonecrosis in the proximal tibia common widespread subcutaneous edema without abscess. Brain CT showed old infarcts. Review of Systems Review of Systems: Unable to be obtained accurately as she is somnolent and a bit confused. [facility] Past Medical History Medical History (Updated 12/29/22 @ 22:14 by Sabra Felton PA-C) Cerebrovascular accident Chronic anemia Chronic anticoagulation Chronic kidney disease Chronic obstructive pulmonary disease Chronic respiratory failure with hypoxia, on home oxygen therapy Coronary artery disease Diverticulitis Hyperlipidemia Hypertension Hypothyroidism Insulin dependent type 2 diabetes mellitus Paroxysmal atrial fibrillation Seizure disorder Urinary tract infection Surgical History Surgical History History of ankle surgery ORIF left ankle fracture. History of appendectomy History of cholecystectomy History of colonoscopy with polypectomy History of coronary artery stent placement History of thyroidectomy Family History Family History Other Unknown family medical history Social History Social History Social History: Surrogate medical decision maker: Michael Perla, son. Code status: Do not resuscitate. Smoking status: Never smoker Alcohol intake: never Substance use: never Substance use type: does not use Lack of Transportation: No Lack of Food: Never True Current Housing: I Have Housing Concerned About Future H
[2022-12-29 21:09] LABS: Glucose Point of Care 151 mg/dl (65-105)
[2022-12-29 23:03] LABS: Ammonia < 9 umol/L (9-30)
[2022-12-29 23:26] LABS: Alveolar/Arterial O2 Gradient 61.8 mmHg; Base Excess ABG 3.5 mEq/l (+/-2.0); Carboxyhemoglobin 0.1 % THb (0-2.0); Fractional Inspired Oxygen 28 %; HCO3 ABG 28.6 mEq/l (22.0-26.0); Methemoglobin ABG 0.2 %THb (0-1.5); Oxygen Content ABG 12.7 %vol (16.0-22.0); Oxygen Saturation ABG 96.3 % (95.0-100.0); PCO2 ABG 46.1 mmHg (35.0-45.0); PO2 ABG 83.4 mmHg (80.0-100.0); PO2 FiO2 Ratio Arterial Blood 2.98 %; Reduced Hemoglobin 4.7 %THb (0-5.0); Total Hemoglobin 9.4 g/dL (12.0-18.0); pH ABG 7.411 (7.350-7.450)
[2022-12-29 23:27] LABS: Device NASAL CANNULA; Modified Allen's Test Pass; Site Drawn RIGHT RADIAL
[2022-12-29 23:37] LABS: Procalcitonin 0.5 ng/mL
[2022-12-29 23:40] LABS: Thyroid Stimulating Hormone Reflex 0.754 uIU/mL (0.465-4.68)
[2022-12-29 23:48] LABS: Influenza A QL RT-PCR Negative (Negative); Influenza B QL RT-PCR Negative (Negative); SARS-CoV-2 RNA PCR Negative (Negative)
[2022-12-30] VITALS (12 sets, daily range): BP systolic 137–139; BP diastolic 59–77; PULSE 67–85; RESP 14–20; TEMP 36.1–36.3; O2SAT 96–100; BMI 44.1
--- NOTE | 2022-12-30 | ECHO_ITS ---
Patient Info Name: Marleen Perla Age: 77 years : 1945 Gender: Female Ht: 64 in Wt: 254 lbs BSA: 2.34 m2 HR: 80 bpm BP: 137 / 59 mmHg Heart Rhythm: Sinus Rhythm Technical Quality: Fair Exam Date: 12/30/2022 10:20 AM Exam Location: [facility] Card Pulmonary Patient Status: Inpatient Admit Date: 12/30/2022 Staff Ordering Physician: Sabra Felton PA-C Associate Professor Plant Pathology: Stacy Sloan RDCS Attending Provider: Orlando Eid MD Referring Physician: Jose Francisco LONDONO; Exam Type: CA echo dop color flow w con Study Info Indications - anasarca, Afib Complete two-dimensional, color flow and Doppler transthoracic echocardiogram is performed with contrast to opacify the left ventricle and to improve the deliniation of the left ventricle endocardial borders. Contrast/Agitated Saline Contrast/Ag. Saline: Definity Amount: 3.00 ml Summary 1. Left ventricular chamber dimension is normal. 2. Left ventricular systolic function is normal, estimated at 65-70%. 3. There is mildly increased left ventricular wall thickness. 4. Right ventricular chamber dimension is mildly enlarged. 5. Right ventricular systolic function is normal. 6. Left atrial chamber dimension is moderately enlarged. 7. Right atrial chamber dimension is moderately enlarged. 8. There is mild aortic valve regurgitation. 9. There is mild mitral valve regurgitation. 10. There is mild tricuspid valve regurgitation. Left Ventricle Left ventricular chamber dimension is normal. Left ventricular systolic function is normal, estimated at 65-70%. There is mildly increased left ventricular wall thickness. Right Ventricle Right ventricular chamber dimension is mildly enlarged. Right ventricular systolic function is normal. Left Atria Left atrial chamber dimension is moderately enlarged. Right Atria Right atrial chamber dimension is moderately enlarged. Atrial Septum Intact interatrial septum visualized by color flow imaging. Aortic Valve The aortic valve is trileaflet. There is moderate aortic valve sclerosis. There is no aortic valve stenosis. There is mild aortic valve regurgitation. Pulmonic Valve The pulmonic valve is not well visualized. Mitral Valve There is mild mitral valve regurgitation. Tricuspid Valve There is mild tricuspid valve regurgitation. Pericardium/Pleural The pericardium appears epicardial fat pad. There is no pericardial effusion. Inferior Vena Cava Inferior vena cava is not well visualized. Aorta The aortic root size at the sinus of Valsalva is normal. Left Ventricular Outflow Tract Name Value Normal LVOT 2D LVOT Diameter 1.70 cm LVOT Doppler LVOT Peak Gradient 2 mmHg LVOT Mean Gradient 1 mmHg LVOT VTI 17.52 cm LVOT VTI/AV VTI Ratio 0.78 LVOT Stroke Volume 39.92 ml LVOT CO 4.61 l/min LVOT CI 1.97 L/min/m2 Pulmonic Valve Name Value Normal ------
[2022-12-30 00:14] LABS: Vitamin B12 > 1000.0 pg/mL (239-931)
[2022-12-30] MEDS: LIOTHYRONINE SODIUM 5 MCG TABLET PO (05:07)
[2022-12-30] MEDS: levETIRAcetam 250 MG TABLET PO ×2 (05:07→20:23)
[2022-12-30 05:56] LABS: Estimated CRCL calculation 27 ml/min; Estimated Glomerular Filt Rate 24
[2022-12-30 06:05] LABS: INR 1.4; Prothrombin Time 18.1 Seconds (11.1-14.7)
[2022-12-30 08:59] LABS: Glucose Point of Care 166 mg/dl (65-105)
[2022-12-30] MEDS: SPIRONOLACTONE 25 MG TABLET PO (09:34)
[2022-12-30] MEDS: PREGABALIN (*CRX) 75 MG CAPSULE 150 MG PO ×2 (09:34→16:25)
[2022-12-30] MEDS: AMIODARONE HCL 200 MG TABLET PO (09:35)
[2022-12-30] MEDS: CYANOCOBALAMIN 1,000 MCG TABLET 1000 MCG PO (09:35)
[2022-12-30] MEDS: DICYCLOMINE HCL 10 MG CAPSULE PO ×2 (09:35→20:23)
[2022-12-30] MEDS: BUMETANIDE 1 MG TABLET 2 MG PO (09:35)
[2022-12-30] MEDS: LORATADINE 10 MG TABLET PO (09:35)
[2022-12-30] MEDS: POTASSIUM CHLORIDE 20 MEQ PACKET (FOR LIQUID) PO ×2 (09:35→16:25)
[2022-12-30] MEDS: polyethylene glycoL 3350 17 GM POWD.PACK PO ×2 (09:35→16:25)
[2022-12-30] MEDS: PANTOPRAZOLE 40 MG TABLET PO (09:35)
[2022-12-30] MEDS: FERROUS SULFATE 325 MG TABLET DR BY MOUTH (09:35)
[2022-12-30] MEDS: SACCHAROMYCES BOULARDII 250 MG CAPSULE PO ×2 (09:35→16:25)
[2022-12-30] MEDS: MULTIVITAMINS THERAPEUTIC TAB (*BKC) 1 TABLET PO (09:35)
[2022-12-30] MEDS: VENLAFAXINE HCL 75 MG TABLET PO (09:36)
[2022-12-30] MEDS: TOLNAFTATE 1% POWDER 45 GM BTL 1 APPLIC TOPICAL ×2 (09:36→20:25)
[2022-12-30] MEDS: INSULIN GLARGINE (*BKC) 100 UNITS/ML 30 UNITS SUB-Q ×2 (09:37→20:49)
--- NOTE | 2022-12-30 09:48 | PM.IMPN ---
Progress Note: A&P Assessment and Plan (1) Encephalopathy: Code(s): G93.40 - Encephalopathy, unspecified Status: Acute Assessment and Plan: Her encephalopathy is likely related to the fever and underlying infection ABG, ammonia, TSH, and B12 unremarkable to explain condition (2) Fever: Code(s): R50.9 - Fever, unspecified Status: Acute Assessment and Plan: Reports of fever to 102? we will continue with empiric vancomycin which was started in the ED. Blood cultures have been obtained and are pending. She has an indwelling Johnson catheter and her urine is grossly abnormal however many squamous cells were noted. Continue ceftriaxone, pending urine culture. Check influenza and COVID. Her abdominal exam is benign. No nuchal rigidity on exam or concerns for meningitis/encephalitis. (3) Abnormal urinalysis: Code(s): R82.90 - Unspecified abnormal findings in urine Status: Acute Assessment and Plan: She has an indwelling Johnson catheter and her urine is grossly abnormal however many squamous cells were noted. Continue ceftriaxone, pending urine culture. (4) Chronic venous stasis: Code(s): I87.8 - Other specified disorders of veins Status: Acute Assessment and Plan: Son is concerned that she has cellulitis in the left leg however she has evidence of chronic venous stasis of both legs and wall the left leg is a bit more red when compared to the right (5) Chronic anemia: Code(s): D64.9 - Anemia, unspecified Status: Acute Assessment and Plan: Anemia is stable compared to labs several weeks ago. (6) Chronic respiratory failure with hypoxia, on home oxygen therapy: Code(s): J96.11 - Chronic respiratory failure with hypoxia; Z99.81 - Dependence on supplemental oxygen Status: Acute Assessment and Plan: Oxygen saturation 84% on room air and 96% on 2 liters/minute. 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 Check hemoglobin A1c. (8) Seizure disorder: Code(s): G40.909 - Epilepsy, unspecified, not intractable, without status epilepticus Status: Acute Assessment and Plan: She has a history of seizures though no reports of seizures today or yesterday it is plausible that she had an unwitnessed seizure and is postictal. (9) Anasarca: Code(s): R60.1 - Generalized edema Status: Acute Assessment and Plan: She has anasarca however I am hesitant to up titrate her bumetanide as she was recently hospitalized with worsening renal function. Creatinine today is probably near her baseline. Echocardiogram ordered as we do not have one on file. Echocardiogram no signs of heart failure. (10) Chronic kidney disease: Code(s): N18.9 - Chronic kidney disease, unspecified Status: Acute Assessment and Plan: She has anasarca however I am hesitant to up titrate her bumetanide as she was recently hospitalized with worsening renal function. Creatinine today is probably near her baseline. Plan IV albumin to try to pull third spaced fluids back intravascularly. Ceftriaxone 1g BID Vancomycin Monitor cultures Balance diuresis with renal function concerns Reassuring echocardiogram Time Spent With Patient Time with patient: Greater than 35 minutes Subjective Date/time seen: 12/30/22 09:48 Interval history: Patient admitted for cellulitis of lower extremities especially left lower extremity. Patient has history of CHF concern for fluid overload. Patient appears to have lower extremity pitting edema and fluid overload but UA and chemistry panel indicate possibly int
[2022-12-30] MEDS: PERFLUTREN LIPID MICROSPHERES 1.5 ML VIAL DILUTED TO 10 ML TOTAL VOLUME IV PUSH (11:00)
[2022-12-30] MEDS: ALBUMIN HUMAN 25% 25 GM/100 ML 100 ML IVPB ×3 (11:53→23:40)
[2022-12-30 12:13] LABS: Glucose Point of Care 189 mg/dl (65-105)
--- NOTE | 2022-12-30 13:48 | PC.NURSE ---
On 12/30/22, the student, [Maria Victoria Wu], provided care and completed [facility] documentation on this patient. I have reviewed the student's documentation and agree with the findings.
[2022-12-30] MEDS: DOCUSATE SODIUM 100 MG CAPSULE PO (16:24)
[2022-12-30] MEDS: SENNOSIDES 8.6 MG TABLET 17.2 MG PO (16:25)
[2022-12-30 17:06] LABS: Glucose Point of Care 202 mg/dl (65-105)
[2022-12-30] MEDS: INSULIN ASPART (*BKC) 100 UNITS/ML SUB-Q ×2 (17:16→20:49)
[2022-12-30] MEDS: RIVAROXABAN 15 MG TABLET PO (20:23)
[2022-12-30 22:14] LABS: Glucose Point of Care 231 mg/dl (65-105)
[2022-12-31] VITALS (11 sets, daily range): BP systolic 120–154; BP diastolic 43–64; PULSE 80–91; RESP 18–20; TEMP 36.5–36.6; O2SAT 93–96
[2022-12-31 05:51] LABS: Basophils Percent Auto 0.3 % (0.2-1.2); Eosinophils Absolute Auto 0.2 K/mm3 (0-0.3); Eosinophils Percent Auto 2.2 % (0-4.4); Hemoglobin 7.5 g/dL (12.0-15.0); Immature Granulocyte Absolute 0.07 K/mm3 (0.00-0.031); Immature Granulocyte Percent A 0.8 % (0-0.5); Lymphocytes Absolute Auto 1.53 K/mm3 (0.9-3.2); Lymphocytes Percent Auto 17.6 % (18.3-44.2); Mean Corpuscular Hemoglobin 29.6 pg (26-34); Mean Corpuscular Volume 98.8 fl (80-100); Mean Platelet Volume 12.3 fl (7.4-10.4); Monocytes Percent Auto 11.4 % (2.6-8.5); Neutrophils Absolute Auto 5.9 K/mm3 (1.3-6.7); Neutrophils Percent Auto 67.7 % (45.5-73.1); Platelet Count Result 140 k/mm3 (150-375); Red Blood Count 2.53 M/mm3 (4.2-5.4); Red Cell Distribution Width 14.9 % (11.5-14.5); White Blood Count 8.7 K/mm3 (4.5-10.0)
[2022-12-31 05:54] LABS: Alanine Aminotransferase 25 U/L (6-35); Albumin Level 3.4 g/dL (3.5-5.1); Alkaline Phosphatase 153 U/L (38-126); Anion Gap 8 mmol/L (8-16); Aspartate Amino Transferase 41 U/L (14-36); Bilirubin,Total 0.8 mg/dL (0.2-1.3); Blood Urea Nitrogen 52 mg/dL (7-17); Calcium 8.1 mg/dL (8.4-10.2); Carbon Dioxide 28 mmol/L (22-30); Chloride 98 mmol/L (98-107); Estimated CRCL calculation 31 ml/min; Estimated Glomerular Filt Rate 27; Glucose 258 mg/dL (65-110); Potassium 4.6 mmol/L (3.4-5.0); Sodium 134 mmol/L (137-145)
[2022-12-31] MEDS: LIOTHYRONINE SODIUM 5 MCG TABLET PO (06:12)
[2022-12-31 08:18] LABS: Glucose Point of Care 237 mg/dl (65-105)
[2022-12-31] MEDS: INSULIN ASPART (*BKC) 100 UNITS/ML SUB-Q (08:50)
[2022-12-31] MEDS: BUMETANIDE 1 MG TABLET 2 MG PO (08:51)
[2022-12-31] MEDS: FERROUS SULFATE 325 MG TABLET DR BY MOUTH (08:51)
[2022-12-31] MEDS: SPIRONOLACTONE 25 MG TABLET PO (08:51)
[2022-12-31] MEDS: CYANOCOBALAMIN 1,000 MCG TABLET 1000 MCG PO (08:51)
[2022-12-31] MEDS: levETIRAcetam 250 MG TABLET PO ×2 (08:51→20:06)
[2022-12-31] MEDS: PANTOPRAZOLE 40 MG TABLET PO (08:51)
[2022-12-31] MEDS: DICYCLOMINE HCL 10 MG CAPSULE PO ×2 (08:51→20:06)
[2022-12-31] MEDS: SACCHAROMYCES BOULARDII 250 MG CAPSULE PO ×2 (08:53→17:15)
[2022-12-31] MEDS: LORATADINE 10 MG TABLET PO (08:53)
[2022-12-31] MEDS: PREGABALIN (*CRX) 75 MG CAPSULE 150 MG PO ×2 (08:53→17:15)
[2022-12-31] MEDS: VENLAFAXINE HCL 75 MG TABLET PO (08:53)
[2022-12-31] MEDS: MULTIVITAMINS THERAPEUTIC TAB (*BKC) 1 TABLET PO (08:53)
[2022-12-31] MEDS: AMIODARONE HCL 200 MG TABLET PO (08:53)
[2022-12-31] MEDS: INSULIN GLARGINE (*BKC) 100 UNITS/ML 30 UNITS SUB-Q ×2 (08:54→20:51)
[2022-12-31] MEDS: polyethylene glycoL 3350 17 GM POWD.PACK PO ×2 (08:54→17:15)
[2022-12-31] MEDS: POTASSIUM CHLORIDE 20 MEQ PACKET (FOR LIQUID) PO ×2 (08:54→17:15)
[2022-12-31] MEDS: TOLNAFTATE 1% POWDER 45 GM BTL 1 APPLIC TOPICAL ×2 (09:02→20:09)
[2022-12-31] MEDS: BUMETANIDE INJ 1 MG/4 ML VIAL IV PUSH (11:24)
[2022-12-31] MEDS: DOCUSATE SODIUM 100 MG CAPSULE PO (11:25)
[2022-12-31] MEDS: SENNOSIDES 8.6 MG TABLET 17.2 MG PO (11:25)
[2022-12-31 12:03] LABS: Glucose Point of Care 167 mg/dl (65-105)
--- NOTE | 2022-12-31 14:03 | PM.IMPN ---
Progress Note: A&P Assessment and Plan (1) Encephalopathy: Code(s): G93.40 - Encephalopathy, unspecified Status: Acute (2) Fever: Code(s): R50.9 - Fever, unspecified Status: Acute (3) Abnormal urinalysis: Code(s): R82.90 - Unspecified abnormal findings in urine Status: Acute (4) Chronic venous stasis: Code(s): I87.8 - Other specified disorders of veins Status: Acute (5) Chronic anemia: Code(s): D64.9 - Anemia, unspecified Status: Acute (6) Chronic respiratory failure with hypoxia, on home oxygen therapy: Code(s): J96.11 - Chronic respiratory failure with hypoxia; Z99.81 - Dependence on supplemental oxygen Status: Acute (7) Insulin dependent type 2 diabetes mellitus: Code(s): E11.9 - Type 2 diabetes mellitus without complications; Z79.4 - shelter (current) use of insulin Status: Acute (8) Seizure disorder: Code(s): G40.909 - Epilepsy, unspecified, not intractable, without status epilepticus Status: Acute (9) Anasarca: Code(s): R60.1 - Generalized edema Status: Acute (10) Chronic kidney disease: Code(s): N18.9 - Chronic kidney disease, unspecified Status: Acute Plan (1) Encephalopathy: ?Code(s): G93.40 - Encephalopathy, unspecified ?Status:?Acute ?Assessment and Plan: - Her encephalopathy is likely related to underlying infection, Urine culture positive for E. Coli, treatment for cellulitis to LLE.? -ABG, ammonia, TSH, and B12 unremarkable to explain condition. (2) Fever: ?Code(s): R50.9 - Fever, unspecified ?Status:?Acute ?Assessment and Plan: - Initial temp was 102. Temp now down to 97.8 today. - Blood cultures x2 no growth day 1. - Urine culture positive for E coli. - Vancomycin discontinued and will start Doxycycline for MRSA coverage for cellulitis. - Rocephin discontinued and will start Ertapenem now that culture sensitivity is back. - Will check with nursing to verify if this is a chronic eastman, may consider changing eastman if this has not already been done. - Influenza A and B negative. - Covid negative. (3) Abnormal urinalysis: ?Code(s): R82.90 - Unspecified abnormal findings in urine ?Status:?Acute ?Assessment and Plan: -She has an indwelling Eastman catheter and her urine turbid, grossly abnormal with 4+ bacteria, 3+ leukocytes, and many squamous cells were noted on her UA. - Urine culture reveals E. coli and antibiotic changed today from Rocephin to Ertapenem per culture sensitivity. (4) Chronic venous stasis: ?Code(s): I87.8 - Other specified disorders of veins ?Status:?Acute ?Assessment and Plan: - chronic venous stasis changes to bilateral lower extremities. - Son initially concerned for cellulitis. Patient was initially treated with 2 days of IV Vancomycin and I will deescalate to Doxycycline for coverage going forward. (5) Chronic anemia: ?Code(s): D64.9 - Anemia, unspecified ?Status:?Acute ?Assessment and Plan: Anemia is stable compared to labs several weeks ago. H/H 7.5/25.0 today. (6) Chronic respiratory failure with hypoxia, on home oxygen therapy: ?Code(s): J96.11 - Chronic respiratory failure with hypoxia; Z99.81 - Dependence on supplemental oxygen ?Status:?Acute ?Assessment and Plan: ?-Initial oxygen saturation 84% on room air and 96% on 2 liters/minute. Patient remains on 2L NC at this time. -ABG initially with minimal respiratory acidosis and corresponding metabolic alkalosis for compensated pH of 7.411 (7) Insulin dependent type 2 diabetes mellitus: ?Code(s): E11.9 - Type 2 diabetes mellitus without complications; Z79.4 - shelter (current) use of insulin ?Status:?Acute ?Assessment and Plan: -Continue sliding scale insulin, Accu-Cheks, and hypoglycemic protocol. Last Hgb A1C 6.4 on 12/07/22. - Home medication Humalog on hold. -Continue Lantus 30u
[2022-12-31] MEDS: ERTAPENEM 1 GM/NS 50 ML 1 GM/50 ML BAG IVPB (14:31)
[2022-12-31 17:01] LABS: Glucose Point of Care 193 mg/dl (65-105)
[2022-12-31] MEDS: RIVAROXABAN 15 MG TABLET PO (20:06)
[2022-12-31 20:25] LABS: Glucose Point of Care 167 mg/dl (65-105)
[2023-01-01] VITALS (11 sets, daily range): BP systolic 139–151; BP diastolic 55–71; PULSE 78–93; RESP 18–20; TEMP 36–37; O2SAT 90–100
[2023-01-01] MEDS: LIOTHYRONINE SODIUM 5 MCG TABLET PO (05:32)
--- NOTE | 2023-01-01 06:47 | PC.NURSE ---
On 01/01/23, the Jose Magana, provided care and completed [employer] documentation on this patient. I have reviewed the student's documentation and agree with the findings.
[2023-01-01 08:14] LABS: Basophils Absolute Auto 0.1 K/mm3 (0.0-0.1); Basophils Percent Auto 0.7 % (0.2-1.2); Eosinophils Absolute Auto 0.3 K/mm3 (0-0.3); Eosinophils Percent Auto 4.3 % (0-4.4); Immature Granulocyte Absolute 0.16 K/mm3 (0.00-0.031); Immature Granulocyte Percent A 2.2 % (0-0.5); Lymphocytes Absolute Auto 2.04 K/mm3 (0.9-3.2); Lymphocytes Percent Auto 27.6 % (18.3-44.2); Mean Corpuscular HGB Conc 29.6 g/dl (32-36); Mean Corpuscular Hemoglobin 29.1 pg (26-34); Mean Corpuscular Volume 98.2 fl (80-100); Mean Platelet Volume 12.1 fl (7.4-10.4); Monocytes Absolute Auto 0.8 K/mm3 (0.1-0.6); Monocytes Percent Auto 11.1 % (2.6-8.5); Neutrophils Percent Auto 54.1 % (45.5-73.1); Platelet Count Result 160 k/mm3 (150-375); Red Blood Count 2.75 M/mm3 (4.2-5.4); Red Cell Distribution Width 14.6 % (11.5-14.5); White Blood Count 7.4 K/mm3 (4.5-10.0)
[2023-01-01] MEDS: SPIRONOLACTONE 25 MG TABLET PO (08:22)
[2023-01-01] MEDS: PANTOPRAZOLE 40 MG TABLET PO (08:22)
[2023-01-01] MEDS: PREGABALIN (*CRX) 75 MG CAPSULE 150 MG PO ×2 (08:22→17:31)
[2023-01-01] MEDS: levETIRAcetam 250 MG TABLET PO ×2 (08:23→20:14)
[2023-01-01] MEDS: MULTIVITAMINS THERAPEUTIC TAB (*BKC) 1 TABLET PO (08:23)
[2023-01-01] MEDS: VENLAFAXINE HCL 75 MG TABLET PO (08:23)
[2023-01-01] MEDS: LORATADINE 10 MG TABLET PO (08:24)
[2023-01-01] MEDS: AMIODARONE HCL 200 MG TABLET PO (08:24)
[2023-01-01] MEDS: FERROUS SULFATE 325 MG TABLET DR BY MOUTH (08:24)
[2023-01-01] MEDS: SACCHAROMYCES BOULARDII 250 MG CAPSULE PO ×2 (08:29→17:31)
[2023-01-01] MEDS: CYANOCOBALAMIN 1,000 MCG TABLET 1000 MCG PO (08:29)
[2023-01-01] MEDS: BUMETANIDE 1 MG TABLET 2 MG PO (08:29)
[2023-01-01 08:30] LABS: Alanine Aminotransferase 25 U/L (6-35); Albumin Level 3.1 g/dL (3.5-5.1); Alkaline Phosphatase 149 U/L (38-126); Anion Gap 6 mmol/L (8-16); Aspartate Amino Transferase 42 U/L (14-36); Bilirubin,Total 0.6 mg/dL (0.2-1.3); Blood Urea Nitrogen 54 mg/dL (7-17); Calcium 8.3 mg/dL (8.4-10.2); Carbon Dioxide 29 mmol/L (22-30); Chloride 101 mmol/L (98-107); Estimated CRCL calculation 26 ml/min; Estimated Glomerular Filt Rate 23; Glucose 141 mg/dL (65-110); Potassium 4.4 mmol/L (3.4-5.0); Sodium 136 mmol/L (137-145)
[2023-01-01 08:30] LABS: Glucose Point of Care 148 mg/dl (65-105)
[2023-01-01] MEDS: DICYCLOMINE HCL 10 MG CAPSULE PO ×2 (08:30→20:14)
[2023-01-01] MEDS: POTASSIUM CHLORIDE 20 MEQ PACKET (FOR LIQUID) PO ×2 (08:30→17:31)
[2023-01-01] MEDS: polyethylene glycoL 3350 17 GM POWD.PACK PO ×2 (08:30→17:31)
[2023-01-01] MEDS: INSULIN GLARGINE (*BKC) 100 UNITS/ML 30 UNITS SUB-Q ×2 (08:33→20:53)
[2023-01-01 08:45] LABS: Platelet Estimate Adequate (Adequate)
[2023-01-01 08:46] LABS: Hypochromasia 2+ (NORMAL); Schistocytes None Seen (NORMAL)
--- NOTE | 2023-01-01 09:06 | PM.IMPN ---
Progress Note: A&P Assessment and Plan (1) Encephalopathy: Code(s): G93.40 - Encephalopathy, unspecified Status: Acute Assessment and Plan: 12/31/2022 - Her encephalopathy is likely related to underlying infection, Urine culture positive for E. Coli, treatment for cellulitis to LLE.? -ABG, ammonia, TSH, and B12 unremarkable to explain condition. 01/01/2023 - Patient more alert today and oriented x3. She was able to answer questions appropriately and follow commands. -Continue to monitor neuro status (2) Fever: Qualifiers: Fever type: unspecified Qualified Code(s): R50.9 - Fever, unspecified Code(s): R50.9 - Fever, unspecified Status: Acute Assessment and Plan: 12/31/2022 - Initial temp was 102. Temp now down to 97.8 today. - Blood cultures x2 no growth day 1. - Urine culture positive for E coli. - Vancomycin discontinued and will start Doxycycline for MRSA coverage for cellulitis. - Rocephin discontinued and will start Ertapenem now that culture sensitivity is back. - Will check with nursing to verify if this is a chronic eastman, may consider changing eastman if this has not already been done. - Influenza A and B negative. - Covid negative. 01/01/2023 - Continue ABX -Blood cultures x2 no growth day 2 (3) Abnormal urinalysis: Code(s): R82.90 - Unspecified abnormal findings in urine Status: Acute Assessment and Plan: 12/31/2022 -She has an indwelling Eastman catheter and her urine turbid,? grossly abnormal with 4+ bacteria, 3+ leukocytes, and many squamous cells were noted on her UA. - Urine culture reveals E. coli and antibiotic changed today from Rocephin to Ertapenem per culture sensitivity. 01/01/2023 - Continue Ertapenem, no other changes to current plan. (4) Chronic venous stasis: Code(s): I87.8 - Other specified disorders of veins Status: Acute Assessment and Plan: 12/31/2022 - chronic venous stasis changes to bilateral lower extremities. - Son initially concerned for cellulitis. Patient was initially treated with 2 days of IV Vancomycin and I will deescalate to Doxycycline for coverage going forward. 01/01/2023 -Continue Doxycycline (5) Chronic anemia: Code(s): D64.9 - Anemia, unspecified Status: Acute Assessment and Plan: 12/31/2022 -Anemia is stable compared to labs several weeks ago. H/H 7.5/25.0 today. 01/01/2023 - H&H remained stable (6) Chronic respiratory failure with hypoxia, on home oxygen therapy: Code(s): J96.11 - Chronic respiratory failure with hypoxia; Z99.81 - Dependence on supplemental oxygen Status: Acute Assessment and Plan: 12/31/2022 -Initial oxygen saturation 84% on room air and 96% on 2 liters/minute. Patient remains on 2L NC at this time. 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 Last Hgb A1C 6.4 on 12/07/22. - Home medication Humalog on hold. -Continue Lantus 30u q12h. 01/01/2023 - no change in plan of care (8) Seizure disorder: Code(s): G40.909 - Epilepsy, unspecified, not intractable, without status epilepticus Status: Acute Assessment and Plan: 12/31/2022 -She has a history of seizures though no reports of seizures prior to or during this admission, however we cannot rule out the possibility of an unwitnessed seizure and possible postictal state. - Continue Keppra 250 mg 01/01/2023 - no change to current plan (9) Anasarca: Code(s): R60.1 - Generalized edema Status: Acute Assessment and Plan:
[2023-01-01] MEDS: TOLNAFTATE 1% POWDER 45 GM BTL 1 APPLIC TOPICAL ×2 (11:01→20:16)
[2023-01-01] MEDS: DOXYCYCLINE HYCLATE 100 MG TABLET PO ×2 (12:02→20:14)
[2023-01-01] MEDS: DOCUSATE SODIUM 100 MG CAPSULE PO (12:02)
[2023-01-01] MEDS: SENNOSIDES 8.6 MG TABLET 17.2 MG PO (12:02)
[2023-01-01 12:08] LABS: Glucose Point of Care 134 mg/dl (65-105)
[2023-01-01] MEDS: ERTAPENEM 1 GM/NS 50 ML 1 GM/50 ML BAG IVPB (13:48)
[2023-01-01 17:11] LABS: Glucose Point of Care 121 mg/dl (65-105)
[2023-01-01] MEDS: RIVAROXABAN 15 MG TABLET PO (20:14)
[2023-01-01 21:08] LABS: Glucose Point of Care 163 mg/dl (65-105)
[2023-01-02] VITALS (13 sets, daily range): BP systolic 113–154; BP diastolic 42–69; PULSE 74–90; RESP 18–20; TEMP 36.2–36.5; O2SAT 96–100
[2023-01-02] MEDS: LIOTHYRONINE SODIUM 5 MCG TABLET PO (05:43)
[2023-01-02 06:10] LABS: Basophils Absolute Auto 0.1 K/mm3 (0.0-0.1); Basophils Percent Auto 0.8 % (0.2-1.2); Eosinophils Absolute Auto 0.5 K/mm3 (0-0.3); Eosinophils Percent Auto 6.5 % (0-4.4); Hematocrit 30.7 % (37.0-47.0); Immature Granulocyte Absolute 0.14 K/mm3 (0.00-0.031); Immature Granulocyte Percent A 1.8 % (0-0.5); Lymphocytes Absolute Auto 1.84 K/mm3 (0.9-3.2); Lymphocytes Percent Auto 23.4 % (18.3-44.2); Mean Corpuscular HGB Conc 29.3 g/dl (32-36); Mean Corpuscular Hemoglobin 29.1 pg (26-34); Mean Corpuscular Volume 99.4 fl (80-100); Mean Platelet Volume 12.2 fl (7.4-10.4); Monocytes Percent Auto 12.6 % (2.6-8.5); Neutrophils Absolute Auto 4.3 K/mm3 (1.3-6.7); Neutrophils Percent Auto 54.9 % (45.5-73.1); Platelet Count Result 189 k/mm3 (150-375); Red Blood Count 3.09 M/mm3 (4.2-5.4); Red Cell Distribution Width 14.7 % (11.5-14.5); White Blood Count 7.9 K/mm3 (4.5-10.0)
[2023-01-02 06:16] LABS: Alanine Aminotransferase 27 U/L (6-35); Albumin Level 3.2 g/dL (3.5-5.1); Alkaline Phosphatase 174 U/L (38-126); Anion Gap 7 mmol/L (8-16); Aspartate Amino Transferase 53 U/L (14-36); Bilirubin,Total 0.5 mg/dL (0.2-1.3); Blood Urea Nitrogen 58 mg/dL (7-17); Calcium 8.8 mg/dL (8.4-10.2); Carbon Dioxide 30 mmol/L (22-30); Chloride 101 mmol/L (98-107); Estimated CRCL calculation 27 ml/min; Estimated Glomerular Filt Rate 23; Glucose 93 mg/dL (65-110); Potassium 4.7 mmol/L (3.4-5.0); Sodium 138 mmol/L (137-145)
--- NOTE | 2023-01-02 07:13 | PM.IMPN ---
Progress Note: A&P Assessment and Plan (1) Encephalopathy: Code(s): G93.40 - Encephalopathy, unspecified Status: Acute Assessment and Plan: 12/31/2022 - Her encephalopathy is likely related to underlying infection, Urine culture positive for E. Coli, treatment for cellulitis to LLE.? -ABG, ammonia, TSH, and B12 unremarkable to explain condition. 01/01/2023 - Patient more alert today and oriented x3. She was able to answer questions appropriately and follow commands. -Continue to monitor neuro status 01/02/2023 - Patient alert and oriented x3. She is in good spirit, able to answer questions appropriately and follow commands. - Case management consulted for transitional care back to facility. I am hoping that we can discharge tomorrow. Will await Case Management input after calling facility. (2) Fever: Qualifiers: Fever type: unspecified Qualified Code(s): R50.9 - Fever, unspecified Code(s): R50.9 - Fever, unspecified Status: Acute Assessment and Plan: 12/31/2022 - Initial temp was 102. Temp now down to 97.8 today. - Blood cultures x2 no growth day 1. - Urine culture positive for E coli. - Vancomycin discontinued and will start Doxycycline for MRSA coverage for cellulitis. - Rocephin discontinued and will start Ertapenem now that culture sensitivity is back. - Will check with nursing to verify if this is a chronic eastman, may consider changing eastman if this has not already been done. - Influenza A and B negative. - Covid negative. 01/01/2023 - Continue ABX -Blood cultures x2 no growth day 2 01/02/2023 - Continue ABX - Will consult with pharmacist regarding length of ABX continuation post discharge - Blood cultures x2 no growth day 3 (3) Abnormal urinalysis: Code(s): R82.90 - Unspecified abnormal findings in urine Status: Acute Assessment and Plan: 12/31/2022 -She has an indwelling Eastman catheter and her urine turbid,? grossly abnormal with 4+ bacteria, 3+ leukocytes, and many squamous cells were noted on her UA. - Urine culture reveals E. coli and antibiotic changed today from Rocephin to Ertapenem per culture sensitivity. 01/01/2023 - Continue Ertapenem, no other changes to current plan. 01/02/2023 - Continue Ertapenem and consult with pharmacist about duration of IV ABX post discharge. (4) Chronic venous stasis: Code(s): I87.8 - Other specified disorders of veins Status: Acute Assessment and Plan: 12/31/2022 - chronic venous stasis changes to bilateral lower extremities. - Son initially concerned for cellulitis. Patient was initially treated with 2 days of IV Vancomycin and I will deescalate to Doxycycline for coverage going forward. 01/01/2023 -Continue Doxycycline 01/02/2023 - Continue Doxycycline. - Will discuss duration with pharmacist for discharge planning. (5) Chronic anemia: Code(s): D64.9 - Anemia, unspecified Status: Acute Assessment and Plan: 12/31/2022 -Anemia is stable compared to labs several weeks ago. H/H 7.5/25.0 today. 01/01/2023 - H&H remained stable 01/02/2023 - H&H remains stable, no further interventions required. (6) Chronic respiratory failure with hypoxia, on home oxygen therapy: Code(s): J96.11 - Chronic respiratory failure with hypoxia; Z99.81 - Dependence on supplemental oxygen Status: Acute Assessment and Plan: 12/31/2022 -Initial oxygen saturation 84% on room air and 96% on 2 liters/minute. Patient remains on 2L NC at this time. ?-ABG initially with minimal respiratory acidosis and corresponding metabolic alkalosis for compensated pH of 7.411 01/01/2023 - remains on 2 L nasal cannula during the day and at night 01/02/2023 - Remains on 2L NC which is patients baseline oxygen requirements. 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
[2023-01-02 08:16] LABS: Glucose Point of Care 92 mg/dl (65-105)
[2023-01-02] MEDS: SPIRONOLACTONE 25 MG TABLET PO (08:29)
[2023-01-02] MEDS: levETIRAcetam 250 MG TABLET PO ×2 (08:29→20:14)
[2023-01-02] MEDS: BUMETANIDE INJ 1 MG/4 ML VIAL IV PUSH ×2 (08:29→20:21)
[2023-01-02] MEDS: BUMETANIDE 1 MG TABLET 2 MG PO (08:30)
[2023-01-02] MEDS: AMIODARONE HCL 200 MG TABLET PO (08:30)
[2023-01-02] MEDS: CYANOCOBALAMIN 1,000 MCG TABLET 1000 MCG PO (08:31)
[2023-01-02] MEDS: SACCHAROMYCES BOULARDII 250 MG CAPSULE PO ×2 (08:31→16:41)
[2023-01-02] MEDS: FERROUS SULFATE 325 MG TABLET DR BY MOUTH (08:31)
[2023-01-02] MEDS: MULTIVITAMINS THERAPEUTIC TAB (*BKC) 1 TABLET PO (08:31)
[2023-01-02] MEDS: LORATADINE 10 MG TABLET PO (08:32)
[2023-01-02] MEDS: DOXYCYCLINE HYCLATE 100 MG TABLET PO ×2 (08:32→20:14)
[2023-01-02] MEDS: PANTOPRAZOLE 40 MG TABLET PO (08:32)
[2023-01-02] MEDS: DICYCLOMINE HCL 10 MG CAPSULE PO ×2 (08:32→20:14)
[2023-01-02] MEDS: PREGABALIN (*CRX) 75 MG CAPSULE 150 MG PO ×2 (08:32→16:41)
[2023-01-02] MEDS: VENLAFAXINE HCL 75 MG TABLET PO (08:32)
[2023-01-02] MEDS: polyethylene glycoL 3350 17 GM POWD.PACK PO (08:32)
[2023-01-02] MEDS: POTASSIUM CHLORIDE 20 MEQ PACKET (FOR LIQUID) PO ×2 (08:32→16:41)
[2023-01-02] MEDS: TOLNAFTATE 1% POWDER 45 GM BTL 1 APPLIC TOPICAL ×2 (08:33→20:26)
[2023-01-02] MEDS: SENNOSIDES 8.6 MG TABLET 17.2 MG PO (11:50)
[2023-01-02] MEDS: DOCUSATE SODIUM 100 MG CAPSULE PO (11:50)
[2023-01-02 12:01] LABS: Glucose Point of Care 98 mg/dl (65-105)
[2023-01-02] MEDS: ERTAPENEM 1 GM/NS 50 ML 1 GM/50 ML BAG IVPB (13:26)
[2023-01-02] MEDS: LIDOCAINE HCL 1% LOCAL INJ 2 ML AMPUL 5 ML INFILTRATE (14:30)
[2023-01-02 16:56] LABS: Glucose Point of Care 66 mg/dl (65-105)
[2023-01-02 17:24] LABS: Glucose Point of Care 101 mg/dl (65-105)
[2023-01-02 19:33] LABS: Glucose Point of Care 198 mg/dl (65-105)
[2023-01-02] MEDS: RIVAROXABAN 15 MG TABLET PO (20:14)
[2023-01-02] MEDS: INSULIN GLARGINE (*BKC) 100 UNITS/ML 30 UNITS SUB-Q (20:16)
[2023-01-02] MEDS: SALINE LOCK FLUSH 10 ML IV PUSH (22:57)
[2023-01-03 00:04] VITALS: PULSE 81
--- NOTE | 2023-01-03 02:22 | PCRCNOTE ---
Patient refused cpap mask at 2100. RT encouraged again at 0210 with same outcome.
[2023-01-03 04:00] VITALS: PULSE 76
[2023-01-03] MEDS: LIOTHYRONINE SODIUM 5 MCG TABLET PO (05:17)
[2023-01-03] MEDS: SALINE LOCK FLUSH 10 ML IV PUSH (05:17)
[2023-01-03 05:22] VITALS: BP 136/55; PULSE 74; RESP 16; TEMP 36.1; O2SAT 100
[2023-01-03 05:38] LABS: Basophils Percent Auto 0.6 % (0.2-1.2); Eosinophils Absolute Auto 0.5 K/mm3 (0-0.3); Eosinophils Percent Auto 8.1 % (0-4.4); Hemoglobin 8.2 g/dL (12.0-15.0); Immature Granulocyte Absolute 0.09 K/mm3 (0.00-0.031); Immature Granulocyte Percent A 1.4 % (0-0.5); Lymphocytes Absolute Auto 1.72 K/mm3 (0.9-3.2); Lymphocytes Percent Auto 25.8 % (18.3-44.2); Mean Corpuscular HGB Conc 29.3 g/dl (32-36); Mean Corpuscular Hemoglobin 29.1 pg (26-34); Mean Corpuscular Volume 99.3 fl (80-100); Mean Platelet Volume 12.1 fl (7.4-10.4); Monocytes Absolute Auto 0.8 K/mm3 (0.1-0.6); Neutrophils Absolute Auto 3.5 K/mm3 (1.3-6.7); Neutrophils Percent Auto 52.1 % (45.5-73.1); Platelet Count Result 192 k/mm3 (150-375); Red Blood Count 2.82 M/mm3 (4.2-5.4); Red Cell Distribution Width 14.6 % (11.5-14.5); White Blood Count 6.7 K/mm3 (4.5-10.0)
[2023-01-03 05:48] LABS: Alanine Aminotransferase 27 U/L (6-35); Albumin Level 2.8 g/dL (3.5-5.1); Alkaline Phosphatase 177 U/L (38-126); Anion Gap 3 mmol/L (8-16); Aspartate Amino Transferase 57 U/L (14-36); Bilirubin,Total 0.4 mg/dL (0.2-1.3); Blood Urea Nitrogen 57 mg/dL (7-17); Calcium 8.6 mg/dL (8.4-10.2); Carbon Dioxide 31 mmol/L (22-30); Chloride 101 mmol/L (98-107); Estimated CRCL calculation 29 ml/min; Estimated Glomerular Filt Rate 26; Glucose 111 mg/dL (65-110); Potassium 4.6 mmol/L (3.4-5.0); Sodium 135 mmol/L (137-145)
--- NOTE | 2023-01-03 07:19 | PM.DS ---
DS: Admitting Diagnosis Discharge Date 01/03/2023 Admitting Diagnosis Acute Encephalopathy Fever Abnormal urinalysis Chronic venous stasis Chronic anemia Chronic respiratory failure with hypoxia Insulin-dependent type 2 diabetes mellitus Seizure disorder Anasarca chronic kidney disease DS: Discharge Diagnosis Discharge Diagnosis (1) Encephalopathy: Code(s): G93.40 - Encephalopathy, unspecified Status: Acute (2) Fever: Qualifiers: Fever type: unspecified Qualified Code(s): R50.9 - Fever, unspecified Code(s): R50.9 - Fever, unspecified Status: Acute (3) Abnormal urinalysis: Code(s): R82.90 - Unspecified abnormal findings in urine Status: Acute (4) Chronic venous stasis: Code(s): I87.8 - Other specified disorders of veins Status: Acute (5) Chronic anemia: Code(s): D64.9 - Anemia, unspecified Status: Acute (6) Chronic respiratory failure with hypoxia, on home oxygen therapy: Code(s): J96.11 - Chronic respiratory failure with hypoxia; Z99.81 - Dependence on supplemental oxygen Status: Acute (7) Insulin dependent type 2 diabetes mellitus: Code(s): E11.9 - Type 2 diabetes mellitus without complications; Z79.4 - 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 care (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) use of insulin Status: Acute (8) Seizure disorder: Code(s): G40.909 - Epilepsy, unspecified, not intractable, without status epilepticus Status: Acute (9) Anasarca: Code(s): R60.1 - Generalized edema Status: Acute (10) Chronic kidney disease: Qualifiers: Chronic kidney disease stage: stage 3 (moderate) Chronic kidney disease stage 3 subtype: stage 3b (GFR 30-44) Qualified Code(s): N18.32 - Chronic kidney disease, stage 3b Code(s): N18.9 - Chronic kidney disease, unspecified Status: Acute DS: Summary Hospital Course Reason for hospitalization: Acute encephalopathy Hospital Course: This is a 77-year-old female who presented to the emergency room on 12/29/2022 via EMS from [facility] for evaluation of weakness and confusion. Patient currently lives at [facility] and arrived to the hospital via EMS. Son was present at that time and had concerns for cellulitis of the left lower extremity. 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 He also had a left lower extremity CT which revealed poly articular osteoarthritis, osteonecrosis and proximal tibia, and widespread subcutaneous edema, no abscess. She also had a venous Doppler study which was negative for DVT. Chest x-ray shown mild congestive changes. Urine culture done this admission was positive for E coli blood cultures show no growth pain. Patient also had anasarca with 4+ pitting edema to bilateral lower extremities she was given extra diuresis during her hospital stay with Bumex 1 mg IV daily in combination with her 2 mg Bumex oral dose. Patient was requiring 2 L nasal cannula during the day and at night. There were some concerns for sleep apnea and an apnea test was performed which shown her to have sleep apnea. Patient set up with [employer] for use at night. Patient also had a midline placed as she will require additional IV antibiotics at home. She will go home with Ertapenem IV once a day and Doxycycline 100mg q12h for an additional 5 days. Patient is to follow up with PCP in 1 week. Status at Discharge Cognitive/behavioral status at discharge: alert and oriented x3 Functional status at discharge: wheelchair bound Overall status at discharge: patient is back to baseline Time Spent with Patient Time attestation: Total time spent providing and/or coordinating discharge services: Time spent: Greater than 30 minutes Exam Narrative: General:?Morbidly obese, chronically ill appearing female, no acute distress. Weight: 112.9 kg. BMI: 42.7. HEENT:??PERRL, EOMI. Sclera anicteric. Conjunctiva mildly injecte
[2023-01-03 07:55] LABS: Glucose Point of Care 113 mg/dl (65-105)
[2023-01-03 08:00] VITALS: PULSE 74; O2SAT 94
[2023-01-03 09:39] VITALS: PULSE 72
[2023-01-03] MEDS: DICYCLOMINE HCL 10 MG CAPSULE PO (09:39)
[2023-01-03] MEDS: BUMETANIDE 1 MG TABLET 2 MG PO (09:39)
[2023-01-03] MEDS: PREGABALIN (*CRX) 75 MG CAPSULE 150 MG PO (09:39)
[2023-01-03] MEDS: LORATADINE 10 MG TABLET PO (09:39)
[2023-01-03] MEDS: AMIODARONE HCL 200 MG TABLET PO (09:39)
[2023-01-03] MEDS: DOXYCYCLINE HYCLATE 100 MG TABLET PO (09:39)
[2023-01-03] MEDS: SACCHAROMYCES BOULARDII 250 MG CAPSULE PO (09:40)
[2023-01-03] MEDS: CYANOCOBALAMIN 1,000 MCG TABLET 1000 MCG PO (09:40)
[2023-01-03] MEDS: SPIRONOLACTONE 25 MG TABLET PO (09:40)
[2023-01-03] MEDS: TOLNAFTATE 1% POWDER 45 GM BTL 1 APPLIC TOPICAL (09:40)
[2023-01-03] MEDS: PANTOPRAZOLE 40 MG TABLET PO (09:40)
[2023-01-03] MEDS: VENLAFAXINE HCL 75 MG TABLET PO (09:40)
[2023-01-03] MEDS: POTASSIUM CHLORIDE 20 MEQ PACKET (FOR LIQUID) PO (09:40)
[2023-01-03] MEDS: MULTIVITAMINS THERAPEUTIC TAB (*BKC) 1 TABLET PO (09:40)
[2023-01-03] MEDS: FERROUS SULFATE 325 MG TABLET DR BY MOUTH (09:40)
[2023-01-03] MEDS: levETIRAcetam 250 MG TABLET PO (09:40)
[2023-01-03] MEDS: DOCUSATE SODIUM 100 MG CAPSULE PO (11:10)
[2023-01-03] MEDS: BUMETANIDE INJ 1 MG/4 ML VIAL IV PUSH (11:10)
[2023-01-03 11:58] LABS: SARS-CoV-2 RNA PCR Negative (Negative)
--- NOTE | 2023-01-03 12:36 | PC.NURSE ---
Per Maya Carr and pharmacist, okay to give ertapenem early now due to awaiting discharge and need to give antibiotic before leaving to jail.
[2023-01-03] MEDS: ERTAPENEM 1 GM/NS 50 ML 1 GM/50 ML BAG IVPB (12:40)
[2023-01-03 14:00] VITALS: BP 139/71; PULSE 76; RESP 18; TEMP 36.3; O2SAT 98
--- NOTE | 2023-01-05 11:45 | IVDEFINITY ---
Prior to administration of IV Definity the patient was educated on the risks and benefits of the imaging enhancing agent including potential adverse side effects. The patient verbalized understanding. Allergies were verified. No exclusion criteria were identified and at least one of the following inclusion criteria were met: 1) physician request, 2) patient technically difficult to image (per the [place] [employer] guidelines of two or more segments not discernable within the apical view), or 3) questionable left ventricular function. ?
== END 2023-01-03 14:15 | DRG 698 ==
LOC: ANHED 11:13 → ANH2MED 14:31
PROVIDERS: General Practice; Internal Medicine; Nurse Practitioner; Physician Assistant; Admitting Provider Internal Medicine; Emergency Provider Physician Assistant; PCP Family Medicine; Visit Provider Nurse Practitioner Acute Care
DX: T83.511A Infection and inflammatory reaction due to indwelling urethral catheter, initial encounter (principal); G93.41 Metabolic encephalopathy; L03.116 Cellulitis of left lower limb; I13.0 Hypertensive heart and chronic kidney disease with heart failure and stage 1 through stage 4 chronic kidney disease, or unspecified chronic kidney disease; N18.4 Chronic kidney disease, stage 4 (severe); J96.11 Chronic respiratory failure with hypoxia; M87.9 Osteonecrosis, unspecified; I50.9 Heart failure, unspecified; I48.0 Paroxysmal atrial fibrillation; I25.10 Atherosclerotic heart disease of native coronary artery without angina pectoris; I87.8 Other specified disorders of veins; J44.9 Chronic obstructive pulmonary disease, unspecified; D64.9 Anemia, unspecified; E11.22 Type 2 diabetes mellitus with diabetic chronic kidney disease; E03.9 Hypothyroidism, unspecified; K31.819 Angiodysplasia of stomach and duodenum without bleeding; K57.30 Diverticulosis of large intestine without perforation or abscess without bleeding; R33.9 Retention of urine, unspecified; R60.1 Generalized edema; M15.9 Polyosteoarthritis, unspecified; G40.909 Epilepsy, unspecified, not intractable, without status epilepticus; Z20.822 Contact with and (suspected) exposure to COVID-19; Z11.52 Encounter for screening for COVID-19; Z79.4 Long term (current) use of insulin; Z79.01 Long term (current) use of anticoagulants; Z86.73 Personal history of transient ischemic attack (TIA), and cerebral infarction without residual deficits; Z95.5 Presence of coronary angioplasty implant and graft; Z99.81 Dependence on supplemental oxygen; Z86.010 Personal history of colon polyps; B96.20 Unspecified Escherichia coli [E. coli] as the cause of diseases classified elsewhere
CPT/HCPCS: 36415; 36569; 36600; 70450; 71045; 73700; 80053; 81001; 82140; 82375; 82565; 82607; 82805; 82948; 83050; 83880; 84145; 84443; 85025; 85610; 85730; 87040; 87077; 87086; 87088; 87186; 87635; 87636; 93005; 93970; 96365; 96375; 96376; 99285; A9270; C8929; G0378; J0696; J1335; J1815; J3370; P9047; Q9957